=== PATIENT | male | born 1970 | race Caucasian/White ===

== ENCOUNTER → 2022-02-16 13:53 | Outpatient (CLI) | payer BC, SELFPAY ==
--- NOTE | ~2022-02-16 | MR_ITS ---
EXAMINATION: MR knee RT wo con DATE: 02/16/2022 14:35 INDICATION: Right knee pain TECHNIQUE: Magnetic resonance imaging (MRI) of the right knee was performed without intravenous contr ast. Sequences included coronal PD-weighted FSE, coronal PD-weighted FS FSE, sagittal T2-weighted FS E, sagittal PD-weighted FS FSE and axial PD weighted fat saturated FSE. COMPARISON: Right knee radiographs dated 12/18/2021 FINDINGS: Medial compartment: Medial meniscus is normal. Articular cartilage is normal. Lateral compartment: Lateral meniscus is normal. Deep chondral fissuring without degenerative subchondral changes at the m edial aspect of the lateral tibial plateau. Patellofemoral compartment: Successful and near full-thickness chondral ulceration with underlying cortical irregularity and suba rticular edema-like signal change at the medial aspect of the lateral trochlea, trochlear groove and medial trochlea. Patellar cartilage is normal. Ligaments and tendons: Anterior and posterior cruciate ligaments are normal. The medial collateral ligament and fibular marcos ateral ligament complex are normal. Patellar tendon is normal. Tiny enthesophyte at the patellar inse rtion of the normal quadriceps tendon. The visualized medial and lateral hamstring tendons as well as the iliotibial band are normal. Fluid: Physiologic amount of fluid in the joint space. No loose osteochondral bodies identified. Osseous/other: Normal marrow signal aside from the previous noted subarticular edema-like signal change at the troch marleny. No fracture or pathologic marrow replacing process. IMPRESSION: 1. High-grade trochlear chondromalacia and small region of moderate grade chondromalacia at the later al tibial plateau. Reviewed, dictated and finalized at location B. IMPRESSION: 1. High-grade trochlear chondromalacia and small region of moderate grade chond romalacia at the lateral tibial plateau.
== END ==
PROVIDERS: Visit Provider Orthopaedic Surgery
DX: M25.561 Pain in right knee (principal); S89.91XA Unspecified injury of right lower leg, initial encounter; X58.XXXA Exposure to other specified factors, initial encounter
CPT/HCPCS: 73721

== ENCOUNTER 2022-04-03 12:28 | Outpatient (CLI) | payer BC, SELFPAY ==
--- NOTE | 2022-04-03 12:43 | ECG_ITS ---
Measurements Intervals [place] Rate: 82 P: 46 IA: 171 QRS: 78 QRSD: 110 T: 15 QT: 343 QTc: 401 Interpretive Statements SINUS RHYTHM NORMAL EKG NO PREVIOUS ECG AVAILABLE FOR COMPARISON Electronically Signed On 04-03-2022 16:41:05 CDT by Salome Patel M.D.
[2022-04-03 13:21] LABS: Anion Gap 11 mmol/L (8-16); Blood Urea Nitrogen 13 mg/dL (9-20); Calcium 8.9 mg/dL (8.4-10.2); Carbon Dioxide 27 mmol/L (22-30); Chloride 96 mmol/L (98-107); Estimated Glomerular Filt Rate > 60; Glucose 110 mg/dL (65-110); Potassium 3.7 mmol/L (3.4-5.0); Sodium 134 mmol/L (137-145)
== END 2022-04-03 12:29 | disposition home or self-care (01) ==
LOC: ANHSURGERY 12:36
PROVIDERS: Anesthesiology; Visit Provider Orthopaedic Surgery
DX: Z79.899 Other long term (current) drug therapy (principal); I10 Essential (primary) hypertension; Z01.818 Encounter for other preprocedural examination
CPT/HCPCS: 36415; 80048; 93005

== ENCOUNTER 2022-04-04 01:25 | Day surgery (SDC) | payer BC, SELFPAY ==
[2022-03-28 13:07] VITALS: BMI 33.1
--- NOTE | 2022-03-28 13:19 | PC.NURSE ---
Report to the Outpatient Waiting Room, entrance under the green pavilion located off [facility], at time 11:30 on date 04/04/22. OR Time: 1:30. - You and your visitor will be asked a series of questions to screen for COVID 19 for your protection. - Only one visitor is allowed at this time. - The patient visitor is requested to leave or wait in car when not with patient. - A mask is required within the hospital. Patients may have clear liquids (water, carbonated beverages, clear teas, apple juice) until 3 hours prior to surgery (10:30) with a maximum of 20 ounces. - No food from midnight until time of surgery Take the following medications with a SIP of water the morning of surgery: ATENOLOL Medications to discontinue per physician: VITAMINS/SUPPLEMENTS Date to take last dose: 03/31/22 Please no make-up, nail persian, hairspray, perfume, deodorant, or body powder the day of surgery. No jewelry (including any body piercings) or valuables the day of surgery, leave them at home. Please take a shower or bath the night before, or the morning of, surgery with an antibacterial soap. Wear comfortable, loose fitting clothing. - Jewelry must be removed prior to entering the operating room. Rings and piercings that are not removed may be cut off. - The hospital will not accept responsibility for valuables. - Please leave all valuables, including medications, at home the day of surgery. If you are going home after surgery, a licensed hole digger truck driver must drive you home. - NO public transportation without another adult. - We recommend that an adult stay with you for 24 hours following discharge. - We also recommend that you do not drive, make important decision, drink alcoholic beverages, or take any drugs that were not prescribed by your health care provider for at least 24 hours after your discharge time. Follow any additional instructions given to you from your surgeon. If you or anyone in your household have experienced Covid symptoms in the past week, please notify your surgeon or the nurse liaison at the phone number below for possible testing. Telephone instructions given to PT - OSCAR TRINIDAD and asked if any additional questions and then verbalized understanding. Patient advised to call surgeon office or pre surgery nurse liaison [phone] if any additional questions.
--- NOTE | 2022-04-03 15:32 | P.PNAN_ITS ---
Anes - Initial Pre Proc Eval Procedure: Operation Date: 04/04/22 13:30 Proposed Procedures p Left Knee Arthroscopy, Right Knee Cortisone Injection - Jed Gtz MD Date/Time: 04/03/22 15:32 Surgeon: Jed Gtz MD Pre Op Diagnosis: left knee recurrent medial meniscus tear, Patient Data Age: 52 Gender: M Height: 1.86 m Weight: 114.76 kg Allergies Allergy/AdvReac Type Severity Reaction Status Date / Time No Known Allergies Allergy Verified 04/04/22 11:39 Home Medications Medication Instructions Recorded Confirmed Type atenolol 25 mg tablet 25 mg PO DAILY 12/18/21 04/04/22 History hydrochlorothiazide 12.5 mg tablet 12.5 mg PO DAILY 12/18/21 04/04/22 History ibuprofen 200 mg capsule (Advil 200 mg PO Q6H PRN Pain 12/18/21 04/04/22 History Liqui-Gel) lisinopril 10 mg tablet 10 mg PO DAILY 12/18/21 04/04/22 History cetirizine 10 mg tablet (Zyrtec) 10 mg PO DAILY 03/28/22 04/04/22 History cholecalciferol (vitamin D3) 125 125 mcg PO DAILY 03/28/22 04/04/22 History mcg (5,000 unit) tablet (Vitamin D3) multivitamin with minerals (Men's 1 tablet PO DAILY 03/28/22 04/04/22 History One Daily tablet) Patient hx anesthesia problems: none Family hx anesthesia problems: none Results Review: All pre-operative results and documents have been reviewed as part of the pre- operative evaluation. 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 Informed Consent: The patient's anesthetic plan and its attendant risks and benefits were discussed with the patient/family/POA. Questions were solicited and answers provided to the satisfaction of the patient/family/POA.
[2022-04-04] VITALS (8 sets, daily range): BP systolic 124–162; BP diastolic 86–108; PULSE 67–86; RESP 12–16; TEMP 36.3–36.4; O2SAT 96–100
--- NOTE | 2022-04-04 07:14 | WPDHPUPDATE1 ---
History and Physical Update Update Date/Time: 04/04/22 07:14 History and Physical has been reviewed, including an updated exam of the patient. There are NO changes in the patient's condition. Risks, benefits, and alternatives have been discussed and questions answered. Patient agrees to proceed with procedure.
[2022-04-04] MEDS: CELECOXIB 200 MG CAPSULE PO (11:44)
[2022-04-04] MEDS: ACETAMINOPHEN 500 MG TABLET 1000 MG PO (11:44)
[2022-04-04] MEDS: LACTATED RINGERS 1,000 ML 30 ML IV CONT (12:59)
[2022-04-04] MEDS: ceFAZolin 2 GM/D5W 50 ML 2 GM/50 ML BAG IVPB (14:54)
[2022-04-04] MEDS: BUPIVACAINE HCL 0.5% PF 30 ML VIAL INFILTRATE (15:27)
[2022-04-04] MEDS: methylPREDNISolone ACETATE 80 MG/ML VIAL IM (15:32)
--- NOTE | 2022-04-04 16:03 | P.OP_ITS ---
Procedure Note - Detailed Date of Procedure 04/04/22 Pre-op Diagnosis left knee recurrent medial meniscus tear ,right knee djd Post-op Diagnosis Same Procedure Performed LEFT KNEE SCOPE, RIGHT KNEE INJECTION Surgeon Jed Gtz MD Anesthesia General Description of Procedure PATIENT WAS TAKEN TO THE OR. LEFT LEG WAS PREPPED AND DRAPED STERILE. TROCARS WERE PLACED IN THE USUAL FASHION. CAMERA WAS INTRODUCED. THERE WAS CHONDROMALACIA TO THE PATELLA FEMORAL JOINT. THERE WAS A LOT OF SYNOVITIS IN ALL COMPARTMENTS. THE MEDIAL COMPARTMENT SHOWED MILD CHONDROMALACIA TO THE MEDIAL FEMORAL CONDYLE. A SHAVER WAS USED TO PREFORM A CHONDROPLASTY. THERE WAS A COMPLEX RECURRENT MEDIAL MENISCUS TEAR AT THE MAIN SUBSTANCE OF THE POSTERIOR HORN. THERE WAS ALSO A COMPLEX TEAR AT THE ROOT OF THE MEDIAL MENISCUS. THE TEARS WERE RESECTED WITH A BITER AND A SHAVER DOWN TO A SMOOTH BASE. THE ACL WAS INTACT. THE LATERAL MENISCUS WAS NOT TORN. THE LATERAL COMPARTMENT HAD MINIMAL CHONDROMALACIA. THE PATELLO FEMORAL JOINT UNDERWENT CHONDROPLASTY. THERE WAS GRADE 3 CHONDROMALACIA AND SOME AREAS OF THE TROCHLEA A ND FULL THICKNESS CARTILAGE WEAR WITH EXPOSED BONE. THERE WAS GRADE 2 CHONDROMALACIA IN PART OF THE PATELLA. SYNOVECTOMY WAS PREFORMED IN THE SUPERIOR MEDIAL COMPARTMENT. THE WOUNDS WERE APPROXIMATED WITH 4.0 NYLON. STERILE DRESSING WAS APPLIED. NEXT THE RIGHT KNEE JOINT WAS INJECTED WITH DEPO MEDROL 80 MG 1 CC AND LIDOCAINE 0.1%, 3 CCs. PATIENT WAS EXTUBATED. Estimated Blood Loss 5 Complications No immediate complications Condition Stable Disposition PACU
--- NOTE | 2022-04-04 16:09 | SUR.PHASEI ---
1607- oral airway removed
[2022-04-04] MEDS: fentaNYL CITRATE INJ (*CRX) 100 MCG/2 ML VIAL 25 MCG IV PUSH ×6 (16:15→16:40)
--- NOTE | 2022-04-04 16:37 | SUR.PHASEI ---
1637- Dr. Short notified of patient's BP readings. No new orders received. Patient instructed to take home lisinopril once discharged.
[2022-04-04] MEDS: oxyCODONE HCL (*CRX) 5 MG TAB IR PO (17:15)
== END 2022-04-04 17:50 | disposition home or self-care (01) ==
PROVIDERS: Visit Provider Orthopaedic Surgery
PROC: (CPT 29870; principal; 2022-04-04 13:30)
DX: S83.232A Complex tear of medial meniscus, current injury, left knee, initial encounter (principal); X50.0XXA Overexertion from strenuous movement or load, initial encounter; M22.42 Chondromalacia patellae, left knee; M65.862 Other synovitis and tenosynovitis, left lower leg; M17.11 Unilateral primary osteoarthritis, right knee; I10 Essential (primary) hypertension; G47.33 Obstructive sleep apnea (adult) (pediatric); Z87.891 Personal history of nicotine dependence; E66.9 Obesity, unspecified; Z68.31 Body mass index [BMI] 31.0-31.9, adult
CPT/HCPCS: 29881; 20610; 36415; 80048; 93005; A9270; J0690; J1040; J1100; J2250; J2405; J2704; J3010; J7120

== ENCOUNTER 2023-07-15 08:02 | Outpatient (CLI) | payer BC, SELFPAY ==
--- NOTE | 2023-07-15 08:11 | ECG_ITS ---
Measurements Intervals [place] Rate: 86 P: 44 DE: 166 QRS: 61 QRSD: 101 T: 31 QT: 333 QTc: 400 Interpretive Statements SINUS RHYTHM POOR R WAVE PROGRESSION, ANTERIOR LEADS BORDERLINE ST-T WAVE ABNORMALITY- INFERIOR LEADS BASELINE ARTIFACT- II, III, AVR, AVL, AVF BORDERLINE ECG COMPARED TO ECG 04/03/2022 12:54:30 ST-T WAVE ABNORMALITY NOW PRESENT Electronically Signed On 07-15-2023 8:43:10 DISTRIBUTION TECHNICIAN by Seun Langley D.O.
[2023-07-15 09:49] LABS: Anion Gap 10 mmol/L (8-16); Blood Urea Nitrogen 14 mg/dL (9-20); Calcium 8.7 mg/dL (8.4-10.2); Carbon Dioxide 26 mmol/L (22-30); Chloride 101 mmol/L (98-107); Estimated Glomerular Filt Rate > 60; Glucose 106 mg/dL (65-110); Sodium 137 mmol/L (137-145)
== END 2023-07-15 08:03 | disposition home or self-care (01) ==
LOC: ANHSURGERY 08:07
PROVIDERS: Anesthesiology; Visit Provider Orthopaedic Surgery
DX: I10 Essential (primary) hypertension (principal); Z01.818 Encounter for other preprocedural examination
CPT/HCPCS: 36415; 80048; 93005

== ENCOUNTER 2023-07-16 00:46 | Day surgery (SDC) | payer BC, SELFPAY ==
[2023-07-11 15:08] VITALS: BMI 32.5
--- NOTE | 2023-07-11 15:16 | PC.NURSE ---
Report to the Outpatient Waiting Room, entrance under the green pavilion located off [facility], at time _1000 on date _07/16/23_. Planned Procedure Time: _1200_. Time changes happen often and if your time is changed the preop area will call you the afternoon before. - You and your visitor will be asked to self-screen and do not enter if you have any COVID symptoms. - A mask is optional within the hospital at this time. Patients may have clear liquids (water, carbonated beverages, clear teas, apple juice) until 3 hours prior to surgery with a maximum of 20 ounces. - No food from midnight until time of surgery - Infants may have breast milk until 4 hours before surgery, formula 6 hours prior to surgery. - Children will be allowed to drink immediately following surgery. If applicable, please bring a bottle or sippy cup to assist with drinking. Juice, water, soda, and popsicles are readily available. For infants on formula, please bring formula the day of surgery. Pacifiers are allowed. Take the following medications with a SIP of water the morning of surgery: __ATENOLOL DO NOT STOP ANY OF YOUR OTHER PRESCRIPTION MEDICATIONS PRIOR TO SURGERY ?EXCEPT THE FOLLOWING Medications to discontinue per physician SUPPLIMENTS/ IBUPROFEN Date to take last dose____07/13/23____ Please no make-up, nail new zealander, hairspray, perfume, deodorant, or body powder the day of surgery. No jewelry (including any body piercings) or valuables the day of surgery, leave them at home. Please take a shower or bath the night before, or the morning of, surgery with an antibacterial soap. Wear comfortable, loose fitting clothing. Children are encouraged to wear pajamas. - Jewelry must be removed prior to entering the operating room. Rings and piercings that are not removed may be cut off. - The hospital will not accept responsibility for valuables. - Please leave all valuables, including medications, at home the day of surgery. If you are going home after surgery, a licensed local company flatbed truck driver must drive you home. - NO public transportation without another adult if you receive anesthesia. - We recommend that an adult stay with you for 24 hours following discharge. - We also recommend that you do not drive, make important decision, drink alcoholic beverages, or take any drugs that were not prescribed by your health care provider for at least 24 hours after your discharge time. For Pediatric surgeries, we recommend two adults accompany the child home. Follow any additional instructions given to you from your surgeon. If you or anyone in your household have experienced Covid symptoms in the past week, please notify your surgeon or the nurse liaison at the phone number below for possible testing. Telephone instructions given to PATIENT__and asked if any additional questions and then verbalized understanding. Patient advised to call surgeon office or pre surgery nurse liaison [phone] if any additional questions.
[2023-07-16] VITALS (11 sets, daily range): BP systolic 132–158; BP diastolic 83–112; PULSE 76–91; RESP 12–18; TEMP 36.8–36.9; O2SAT 97–100
--- NOTE | 2023-07-16 09:14 | WPDHPUPDATE1 ---
History and Physical Update Update Date/Time: 07/16/23 09:14 History and Physical has been reviewed, including an updated exam of the patient. There are NO changes in the patient's condition. Risks, benefits, and alternatives have been discussed and questions answered. Patient agrees to proceed with procedure.
[2023-07-16] MEDS: CELECOXIB 200 MG CAPSULE PO (10:30)
[2023-07-16] MEDS: ACETAMINOPHEN 500 MG TABLET 1000 MG PO (10:30)
[2023-07-16] MEDS: LACTATED RINGERS 1,000 ML 30 ML IV CONT ×2 (10:40→13:20)
--- NOTE | 2023-07-16 11:42 | WPDANESEPPF ---
Anes - Initial Pre Proc Eval Procedure: Operation Date: 07/16/23 12:00 Proposed Procedures p Right Knee Arthroscopy, Proceed As Indicated - Jed Gtz MD Date/Time: 07/16/23 11:42 Surgeon: eJd Gtz MD Pre Op Diagnosis: Rt Knee Patellar Chondromalachia Patient Data Age: 53 Gender: M Height: 1.85 m Weight: 113.7 kg Last Vital Signs Temp 36.9 C 07/16/23 11:08 Pulse 87 07/16/23 11:08 Resp 16 07/16/23 11:08 BP 137/92 H 07/16/23 11:08 Pulse Ox 97 07/16/23 11:08 O2 Del Method Room Air 07/16/23 11:08 Allergies Allergy/AdvReac Type Severity Reaction Status Date / Time No Known Allergies Allergy Verified 07/16/23 10:18 Home Medications Medication Instructions Recorded Confirmed Type atenolol 25 mg tablet 25 mg PO DAILY 12/18/21 07/16/23 History hydrochlorothiazide 12.5 mg tablet 12.5 mg PO DAILY 12/18/21 07/16/23 History ibuprofen 200 mg capsule (Advil 200 mg PO Q6H PRN Pain 12/18/21 07/16/23 History Liqui-Gel) lisinopril 10 mg tablet 10 mg PO DAILY 12/18/21 07/16/23 History cetirizine 10 mg tablet (Zyrtec) 10 mg PO DAILY 03/28/22 07/16/23 History multivitamin with minerals (Men's 1 tablet PO DAILY 03/28/22 07/16/23 History One Daily tablet) ergocalciferol (vitamin D2) 1,250 50,000 mcg PO WEEKLY 07/11/23 07/16/23 History mcg (50,000 unit) capsule Results Review: All pre-operative results and documents have been reviewed as part of the pre-operative evaluation. [facility] Past Medical History Medical History Hypertension CELY (obstructive sleep apnea) Surgical History Surgical History Hx of arthroscopy of left knee 1989 & 03/2021 S/P left knee arthroscopy Social History Social History Smoking packs per day: 0.25 Smoking cigarettes per day: 5.0 Years smoked: 6 Smoking pack-years: 1.50 Smoking status: Former smoker Tobacco type: cigarettes Smoking end date: 08/26/01 Alcohol intake: current Drinks per week: 5 Alcohol use details: SPECIAL OCCASIONS Substance use: never Substance use type: does not use Living arrangements: alone Occupation/Education: occupation 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 Informed Consent: The patient's anesthetic plan and its attendant risks and benefits were discussed with the patient/family/POA. Questions were solicited and answers provided to the satisfaction of the patient/family/POA.
--- NOTE | 2023-07-16 11:56 | WPDANESEPPF ---
Anes - Initial Pre Proc Eval Procedure: Operation Date: 07/16/23 12:00 Proposed Procedures p Right Knee Arthroscopy, Proceed As Indicated - Jed Gtz MD Date/Time: 07/16/23 11:56 Surgeon: Jed Gtz MD Pre Op Diagnosis: Rt Knee Patellar Chondromalachia Patient Data Age: 53 Gender: M Height: 1.85 m Weight: 113.7 kg Last Vital Signs Temp 98.4 F 07/16/23 11:08 Pulse 87 07/16/23 11:08 Resp 16 07/16/23 11:08 BP 137/92 H 07/16/23 11:08 Pulse Ox 97 07/16/23 11:08 O2 Del Method Room Air 07/16/23 11:08 Allergies Allergy/AdvReac Type Severity Reaction Status Date / Time No Known Allergies Allergy Verified 07/16/23 10:18 Home Medications Medication Instructions Recorded Confirmed Type atenolol 25 mg tablet 25 mg PO DAILY 12/18/21 07/16/23 History hydrochlorothiazide 12.5 mg tablet 12.5 mg PO DAILY 12/18/21 07/16/23 History ibuprofen 200 mg capsule (Advil 200 mg PO Q6H PRN Pain 12/18/21 07/16/23 History Liqui-Gel) lisinopril 10 mg tablet 10 mg PO DAILY 12/18/21 07/16/23 History cetirizine 10 mg tablet (Zyrtec) 10 mg PO DAILY 03/28/22 07/16/23 History multivitamin with minerals (Men's 1 tablet PO DAILY 03/28/22 07/16/23 History One Daily tablet) ergocalciferol (vitamin D2) 1,250 50,000 mcg PO WEEKLY 07/11/23 07/16/23 History mcg (50,000 unit) capsule Patient hx anesthesia problems: none Family hx anesthesia problems: none Results Review: All pre-operative results and documents have been reviewed as part of the pre-operative evaluation. [facility] Past Medical History Medical History Hypertension CELY (obstructive sleep apnea) Surgical History Surgical History Hx of arthroscopy of left knee 1989 & 03/2021 S/P left knee arthroscopy Social History Social History Smoking packs per day: 0.25 Smoking cigarettes per day: 5.0 Years smoked: 6 Smoking pack-years: 1.50 Smoking status: Former smoker Tobacco type: cigarettes Smoking end date: 08/26/01 Alcohol intake: current Drinks per week: 5 Alcohol use details: SPECIAL OCCASIONS Substance use: never Substance use type: does not use Living arrangements: alone Occupation/Education: occupation 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 Informed Consent: The patient's anesthetic plan and its attendant risks and benefits were discussed with the patient/family/POA. Questions were solicited and answers provided to the satisfaction of the patient/family/POA.
[2023-07-16] MEDS: ceFAZolin 2 GM/D5W 50 ML 2 GM/50 ML BAG IVPB (12:07)
[2023-07-16] MEDS: BUPivacaine HCL 0.5% 10 ML AMP 30 ML INFILTRATE (12:43)
--- NOTE | 2023-07-16 13:19 | W.PM.PROC2 ---
Procedure Note - Detailed Date of Procedure 07/16/23 Pre-op Diagnosis Rt Knee Patellar Chondromalaciia, medial meniscus tear Post-op Diagnosis Same Procedure Performed RIGHT KNEE SCOPE Surgeon Jed Gtz MD Anesthesia General Description of Procedure PATIENT WAS TAKEN TO THE OR. RIGHT LEG WAS PREPPED AND DRAPED STERILE. TROCARS WERE PLACED IN THE USUAL FASHION. CAMERA WAS INTRODUCED. THERE WAS CHONDROMALACIA TO THE PATELLA FEMORAL JOINT. THERE WAS A LOT OF SYNOVITIS IN ALL COMPARTMENTS. THERE WAS A COMPLEX MEDIAL MENISCUS TEAR. THE TEAR WAS RESECTED WITH A BITER AND A SHAVER DOWN TO A SMOOTH BASE. THERE WAS MILD CHONDROMALACIA TO THE MEDIAL FEMORAL CONDYLE AND CHONDROPLASTY WAS PREFORMED. THE ACL WAS INTACT. THE LATERAL MENISCUS WAS NOT TORN. THE LATERAL COMPARTMENT HAD NO CHONDROMALACIA. A SYNOVECTOMY WAS PREFORMED. THE PATELLO FEMORAL JOINT UNDERWENT CHONDROPLASTY. THERE WAS GRADE 3 AND 4 CHONDROMALACIA IN MOST OF THE TROCHLEA AND PART OF THE PATELLA. SYNOVECTOMY WAS PREFORMED IN THE SUPERIOR MEDIAL COMPARTMENT. THE WOUNDS WERE APPROXIMATED WITH 4.0 NYLON. STERILE DRESSING WAS APPLIED. PATIENT WAS EXTUBATED. Estimated Blood Loss 5 Complications No immediate complications Condition Stable Disposition PACU
[2023-07-16] MEDS: fentaNYL CITRATE INJ (*CRX) 100 MCG/2 ML VIAL 25 MCG IV PUSH ×8 (13:28→14:07)
[2023-07-16] MEDS: hydrALAZINE HCL 20 MG/ML VIAL 5 MG IV PUSH ×2 (13:55→14:06)
[2023-07-16] MEDS: oxyCODONE HCL (*CRX) 5 MG TAB IR PO (14:37)
== END 2023-07-16 16:00 | disposition home or self-care (01) ==
PROVIDERS: Visit Provider Orthopaedic Surgery
PROC: (CPT 29870; principal; 2023-07-16 12:00)
DX: M22.41 Chondromalacia patellae, right knee (principal); S83.231A Complex tear of medial meniscus, current injury, right knee, initial encounter; I10 Essential (primary) hypertension; Z87.891 Personal history of nicotine dependence; M65.9 Synovitis and tenosynovitis, unspecified
CPT/HCPCS: 29876; 36415; 80048; 93005; A9270; J0360; J0690; J1100; J2250; J2405; J2704; J3010; J7120

== ENCOUNTER → 2023-10-14 15:45 | Outpatient (CLI) | payer BC, SELFPAY ==
--- NOTE | ~2023-10-14 | MR_ITS ---
EXAMINATION: MR knee RT wo con DATE: 10/14/2023 16:18 INDICATION: S89.91XA - Unspecified injury of right lower leg, initial... TECHNIQUE: Magnetic resonance imaging (MRI) of the right knee was performed without intravenous contr ast. Sequences included axial PD-weighted FS FSE, coronal PD-weighted FSE and PD-weighted FS FSE, sag ittal PD-weighted FSE, and sagittal T2-weighted FS FSE. COMPARISON: 02/16/2022. FINDINGS: Medial compartment: Oblique undersurface tear of the body of the medial meniscus with extension to a small vertically clarisse ented tear at the junction of the posterior horn and body. Blunting of the posterior horn. Moderate d iffuse cartilage thinning. Mild osteophytosis. Lateral compartment: Meniscus intact. Mild diffuse cartilage thinning. Chondral fissure along the medial aspect of the lat eral tibial plateau. Mild osteophytosis. Patellofemoral compartment: Mild osteophytosis. Full-thickness cartilage loss along the inferior aspect of the femoral groove, wi th subchondral cyst formation. Retinacula intact. Ligaments and tendons: The ACL, PCL, MCL, and LCL are intact. Remaining flexor and extensor tendons are intact. Quadriceps e nthesopathy. Fluid: Small volume joint fluid. Osseous/other: No suspicious focal or diffuse marrow signal. IMPRESSION: Complex tear of the posterior horn and body, medial meniscus. Moderate chondromalacia patella. Small volume joint effusion. Reviewed, dictated and finalized at location K. TRO MECHANICAL DESIGNER
== END ==
PROVIDERS: PCP Orthopaedic Surgery; Visit Provider Orthopaedic Surgery
DX: S83.231A Complex tear of medial meniscus, current injury, right knee, initial encounter (principal); M22.41 Chondromalacia patellae, right knee; M25.461 Effusion, right knee; X58.XXXA Exposure to other specified factors, initial encounter
CPT/HCPCS: 73721

== ENCOUNTER 2024-02-26 08:31 | Emergency (ER) | payer BC, SELFPAY ==
[2024-02-26] VITALS (26 sets, daily range): BP systolic 132–161; BP diastolic 84–110; PULSE 76–84; RESP 9–22; TEMP 36.8; O2SAT 94–100
--- NOTE | ~2024-02-26 | XR_ITS ---
EXAMINATION: XR chest 2V DATE: 02/26/2024 09:05 INDICATION: Shortness of breath. Controlled hypertension. TECHNIQUE: PA and lateral views of the chest were obtained. COMPARISON: Chest radiograph dated 08/01/09 FINDINGS: The lungs are clear with no focal airspace opacities, pulmonary edema, pleural effusion or pneumothor ax. The cardiomediastinal silhouette is normal. Mild thoracic spondylosis. IMPRESSION: 1. No acute cardiopulmonary disease. Reviewed, dictated and finalized at location B.
--- NOTE | ~2024-02-26 | CT_ITS ---
EXAMINATION: CT brain wo con DATE: 02/26/2024 09:49 INDICATION: Headache TECHNIQUE: Computed tomography (CT) of the head was performed without intravenous contrast. Sagittal and coronal reconstructions were performed. The mA was adjusted according to patient size. Iterative reconstruction technique was employed. The dose-length product was 681.00 mGy-cm. COMPARISON: head CT dated 05/03/2014 FINDINGS: No acute intracranial hemorrhage, acute infarction or abnormal extra axial fluid collection. Ventricl es are normal and symmetric. No mass/mass effect. The orbits, paranasal sinuses and mastoid air cells are normal. IMPRESSION: 1. Normal head CT. Reviewed, dictated and finalized at location B. IMPRESSION: 1. Normal head CT.
--- NOTE | 2024-02-26 08:38 | ECG_ITS ---
Test Date: 2024-02-26 08:42:25 Measurements Intervals [place] Rate: 80 P: 36 CT: 167 QRS: 56 QRSD: 112 T: 28 QT: 333 QTc: 385 Interpretive Statements SINUS RHYTHM INTRAVENTRICULAR CONDUCTION DELAY BORDERLINE R WAVE PROGRESSION, ANTERIOR LEADS BORDERLINE ECG No previous ECG available for comparison Electronically Signed On 02-26-2024 10:36:50 CDT by Seun Langley D.O.
[2024-02-26 08:53] LABS: Basophils Percent Auto 0.6 % (0.2-1.2); Eosinophils Absolute Auto 0.2 K/mm3 (0-0.3); Eosinophils Percent Auto 2.3 % (0-4.4); Hematocrit 51.3 % (42.0-52.0); Hemoglobin 18.4 g/dL (14.0-18.0); Immature Granulocyte Absolute 0.02 K/mm3 (0.00-0.031); Immature Granulocyte Percent A 0.3 % (0-0.5); Lymphocytes Absolute Auto 2.61 K/mm3 (0.9-3.2); Lymphocytes Percent Auto 38.3 % (18.3-44.2); Mean Corpuscular HGB Conc 35.9 g/dl (32-36); Mean Corpuscular Hemoglobin 29.7 pg (26-34); Mean Corpuscular Volume 82.9 fl (80-100); Monocytes Absolute Auto 0.8 K/mm3 (0.1-0.6); Monocytes Percent Auto 11.3 % (2.6-8.5); Neutrophils Absolute Auto 3.2 K/mm3 (1.3-6.7); Neutrophils Percent Auto 47.2 % (45.5-73.1); Platelet Count Result 254 k/mm3 (150-375); Red Blood Count 6.19 M/mm3 (4.6-6.20); White Blood Count 6.8 K/mm3 (4.5-10.0)
[2024-02-26 09:05] LABS: Alanine Aminotransferase 29 U/L (6-50); Alkaline Phosphatase 36 U/L (38-126); Anion Gap 10 mmol/L (4-12); Aspartate Amino Transferase 24 U/L (17-59); Bilirubin,Total 0.9 mg/dL (0.2-1.3); Blood Urea Nitrogen 12 mg/dL (9-20); Calcium 9.2 mg/dL (8.4-10.2); Carbon Dioxide 27 mmol/L (22-30); Chloride 100 mmol/L (98-107); Estimated CRCL calculation 101 ml/min; Estimated Glomerular Filt Rate > 60; Glucose 119 mg/dL (65-110); Potassium 3.8 mmol/L (3.4-5.0); Sodium 137 mmol/L (137-145)
--- NOTE | 2024-02-26 09:35 | ED.GENADULT ---
HPI - General Adult General Chief complaint: Recheck/Abnormal Lab/Rx Stated complaint: HTN Time Seen by Provider: 02/26/24 09:00 History of Present Illness HPI narrative: Bubba Overton is a 53 y/o male who presents today due to having elevated b/p. He states that he has a hx of HTN and takes Lisinopril and Hydrochlorothiazide. He states that he has had a headache since about February 18 and last night he thought it might be his b/p and he checked it and it was high, he then took his b/p this AM and it was still high he called his PCP and they told him to go to the ED. He states he has had some mild chest tightness off and on - he thought it was related to exercising and it is reproducible with palpation but he continues to have this chest tightness feeling Related Data Home Medications Medication Instructions Recorded Confirmed atenolol 25 mg tablet 25 mg PO DAILY 12/18/21 10/21/23 hydrochlorothiazide 12.5 mg tablet 12.5 mg PO DAILY 12/18/21 10/21/23 ibuprofen 200 mg capsule (Advil 200 mg PO Q6H PRN Pain 12/18/21 10/21/23 Liqui-Gel) lisinopril 10 mg tablet 10 mg PO DAILY 12/18/21 10/21/23 cetirizine 10 mg tablet (Zyrtec) 10 mg PO DAILY 03/28/22 10/21/23 multivitamin with minerals (Men's 1 tablet PO DAILY 03/28/22 10/21/23 One Daily tablet) ergocalciferol (vitamin D2) 1,250 50,000 mcg PO WEEKLY 07/11/23 10/21/23 mcg (50,000 unit) capsule Allergies Allergy/AdvReac Type Severity Reaction Status Date / Time No Known Allergies Allergy Verified 02/26/24 08:37 Review of Systems Review of Systems: CONSTITUTIONAL: Denies fever, chills, or sweats. EYES: Denies visual changes, redness, or discharge. ENT: Denies rhinorrhea, congestion, sore throat, or otalgia. CARDIOVASCULAR: Reports some chest tightness off and on since yesterday and some today chest pain, no palpitations, or edema. RESPIRATORY: Denies cough reports maybe a little short of breath GASTROINTESTINAL: Denies abdominal pain, nausea, vomiting, or diarrhea. GENITOURINARY: Denies dysuria or hematuria. SKIN: Denies rash or itching. MUSCULOSKELETAL: Denies back pain, joint pain, or myalgia. NEUROLOGIC: Reports headache for about 1 week reports baseline numbness due to a spinal cord injury nothing new PSYCHIATRIC: Denies anxiety or depression. [facility] Past Medical History Medical History Hypertension CELY (obstructive sleep apnea) Surgical History Surgical History Hx of arthroscopy of left knee 1989 & 03/2021 S/P left knee arthroscopy Social History Social History Smoking packs per day: 0.25 Smoking cigarettes per day: 5.0 Years smoked: 6 Smoking pack-years: 1.50 Smoking status: Former smoker Tobacco type: cigarettes Smoking end date: 08/26/01 Alcohol intake: current Drinks per week: 5 Alcohol use details: SPECIAL OCCASIONS Substance use: never Substance use type: does not use Living arrangements: alone Occupation/Education: occupation 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 HEAD: Normocephalic, atraumatic. EYES: PERRLA and EOMI. No nystagmus noted ENT: Nares clear, no rhinorrhea or epistaxis. Mucous membranes moist. Oropharynx without tonsillar hypertrophy exudate or other lesions. Bilateral TMs pearly mendoza non bulging NECK: Supple. No adenopathy or masses. No carotid bruits or JVD CHEST: Clear to auscultation. No respiratory distress. No wheezes rales or rhonchi HEART: Regular rate and rhythm. No murmur heard. Normal peripheral pulses. ABDOMEN: Soft, nontender, nondistended, normal active bowel sounds. EXTREMITIES: Normal range of motion. No edema. SKIN: Warm, dry, no rash. N
[2024-02-26 10:03] LABS: Troponin I < 0.012 ng/mL (0.000-0.034)
[2024-02-26] MEDS: ACETAMINOPHEN 500 MG TABLET 1000 MG PO (10:04)
[2024-02-26] MEDS: ASPIRIN 81 MG CHEWABLE TABLET 324 MG PO (10:04)
[2024-02-26] MEDS: KETOROLAC 30 MG/ML VIAL (*BKC) IV PUSH (10:04)
--- NOTE | 2024-02-26 12:16 | ECG_ITS ---
Test Date: 2024-02-26 12:34:31 Measurements Intervals [place] Rate: 72 P: 12 TN: 172 QRS: 65 QRSD: 102 T: 32 QT: 346 QTc: 380 Interpretive Statements SINUS RHYTHM CANNOT R/O SEPTAL INFARCT, AGE INDETERMINATE BASELINE WANDER- II, III, AVR, AVL, AVF, V2 ABNORMAL ECG Compared to ECG 02/26/2024 08:42:25 NO SIGNIFICANT CHANGE Electronically Signed On 02-26-2024 15:02:16 CDT by Seun Langley D.O.
[2024-02-26 12:54] LABS: Troponin I < 0.012 ng/mL (0.000-0.034)
== END 2024-02-26 13:47 | disposition home or self-care (01) ==
PROVIDERS: Emergency Medicine; Emergency Provider Nurse Practitioner Family
DX: R07.89 Other chest pain (principal); R51.9 Headache, unspecified; I10 Essential (primary) hypertension; G47.33 Obstructive sleep apnea (adult) (pediatric); Z87.891 Personal history of nicotine dependence
CPT/HCPCS: 36415; 70450; 71046; 80053; 84484; 85025; 93005; 96374; 99284; A9270; J1885

== ENCOUNTER 2024-02-28 19:44 | Emergency (ER) | payer BC, SELFPAY ==
[2024-02-28 20:02] VITALS: BP 175/108; PULSE 97; RESP 20; TEMP 36.6; O2SAT 98
--- NOTE | 2024-02-28 20:07 | ECG_ITS ---
Test Date: 2024-02-28 20:10:41 Measurements Intervals [place] Rate: 91 P: 37 VA: 178 QRS: 73 QRSD: 107 T: -10 QT: 325 QTc: 400 Interpretive Statements SINUS RHYTHM DELAYED PRECORDIAL R/S TRANSITION NONSPECIFIC ST-T WAVE ABNORMALITY- INFERIOR LEADS BASELINE ARTIFACT- V6 BORDERLINE ECG Compared to ECG 02/26/2024 12:34:31 ST-T WAVE ABNORMALITY NOW PRESENT Electronically Signed On 02-28-2024 20:48:22 CDT by Seun Langley D.O.
[2024-02-28 20:21] LABS: Basophils Absolute Auto 0.1 K/mm3 (0.0-0.1); Basophils Percent Auto 0.7 % (0.2-1.2); Eosinophils Absolute Auto 0.1 K/mm3 (0-0.3); Eosinophils Percent Auto 1.3 % (0-4.4); Hematocrit 53.1 % (42.0-52.0); Hemoglobin 18.8 g/dL (14.0-18.0); Immature Granulocyte Absolute 0.01 K/mm3 (0.00-0.031); Immature Granulocyte Percent A 0.1 % (0-0.5); Lymphocytes Absolute Auto 2.27 K/mm3 (0.9-3.2); Lymphocytes Percent Auto 30.4 % (18.3-44.2); Mean Corpuscular HGB Conc 35.4 g/dl (32-36); Mean Corpuscular Hemoglobin 29.6 pg (26-34); Mean Corpuscular Volume 83.6 fl (80-100); Mean Platelet Volume 9.8 fl (7.4-10.4); Monocytes Absolute Auto 0.8 K/mm3 (0.1-0.6); Monocytes Percent Auto 10.3 % (2.6-8.5); Neutrophils Absolute Auto 4.3 K/mm3 (1.3-6.7); Neutrophils Percent Auto 57.2 % (45.5-73.1); Platelet Count Result 262 k/mm3 (150-375); Red Blood Count 6.35 M/mm3 (4.6-6.20); Red Cell Distribution Width 12.7 % (11.5-14.5); White Blood Count 7.5 K/mm3 (4.5-10.0)
[2024-02-28 20:32] LABS: Alanine Aminotransferase 31 U/L (6-50); Albumin Level 5.1 g/dL (3.5-5.1); Alkaline Phosphatase 34 U/L (38-126); Anion Gap 8 mmol/L (4-12); Aspartate Amino Transferase 27 U/L (17-59); Bilirubin,Total 0.8 mg/dL (0.2-1.3); Blood Urea Nitrogen 16 mg/dL (9-20); Calcium 8.9 mg/dL (8.4-10.2); Carbon Dioxide 33 mmol/L (22-30); Chloride 96 mmol/L (98-107); Estimated CRCL calculation 85 ml/min; Estimated Glomerular Filt Rate > 60; Glucose 125 mg/dL (65-110); Lipase 81 U/L (23-300); Potassium 3.7 mmol/L (3.4-5.0); Sodium 137 mmol/L (137-145)
[2024-02-28 20:33] LABS: Prothrombin Time 13.5 Seconds (11.1-14.7)
[2024-02-28 20:34] LABS: Partial Thromboplastin Time 31.7 Seconds (22.3-36.8)
[2024-02-28 20:43] LABS: Troponin I < 0.012 ng/mL (0.000-0.034)
[2024-02-28 20:58] VITALS: BP 141/113; PULSE 97; RESP 15; O2SAT 96
[2024-02-28 21:02] VITALS: RESP 18
[2024-02-28 21:40] LABS: Appearance Urine Clear (Clear); Bilirubin Urine Negative (Negative); Blood Urine Negative (Negative); Color Urine Yellow (Yellow); Glucose Urine UA Negative (Negative); Ketones Urine Negative (Negative); Leukocyte Esterase Ur Negative LEU/UL (Negative); Nitrate Urine Negative (Negative); Protein Urine Negative (Negative); Urobilinogen Urine 0.2 mg/dL (<2.0); pH Urine 6.5 (5.0-9.0)
[2024-02-28 21:44] LABS: Add Urine Microscopic? NO
--- NOTE | 2024-02-28 22:13 | ED.GENADULT ---
HPI - General Adult General Chief complaint: Unspecified Stated complaint: high blood pressure Time Seen by Provider: 02/28/24 20:59 History of Present Illness HPI narrative: Patient is a 53-year-old male who presents to the emergency department this evening with multiple complaints. Patient states that he was seen at our facility a few days ago for similar symptoms and at that time he was also having headaches which he is still having intermittently and a CT of his was also noted to be normal. Patient has been monitoring his blood pressure at and states that it will increase to as high as 170s which is abnormal for him. Patient states that while he is currently on 2 blood pressure medications his blood pressure has been maintained at 120 systolic and it is very abnormal for him for it to be this high. Patient also states that he has been having some musculoskeletal back pain/kidney pain which is and he is unsure if that is causing his blood pressure to increase. Denies any urinary symptoms including dysuria or hematuria but states that he has been urinating a lot. Patient states that when he called his family doctor they did recommend that he follows up with him in office but states that he was feeling unwell a few days ago when he decided to come here instead of going to his doctor's office. Patient currently denies any chest pain or shortness of breath. No fevers or chills. No additional symptoms or concerns at this time. Related Data Home Medications Medication Instructions Recorded Confirmed atenolol 25 mg tablet 25 mg PO DAILY 12/18/21 10/21/23 hydrochlorothiazide 12.5 mg tablet 12.5 mg PO DAILY 12/18/21 10/21/23 ibuprofen 200 mg capsule (Advil 200 mg PO Q6H PRN Pain 12/18/21 10/21/23 Liqui-Gel) lisinopril 10 mg tablet 10 mg PO DAILY 12/18/21 10/21/23 cetirizine 10 mg tablet (Zyrtec) 10 mg PO DAILY 03/28/22 10/21/23 multivitamin with minerals (Men's 1 tablet PO DAILY 03/28/22 10/21/23 One Daily tablet) ergocalciferol (vitamin D2) 1,250 50,000 mcg PO WEEKLY 07/11/23 10/21/23 mcg (50,000 unit) capsule Allergies Allergy/AdvReac Type Severity Reaction Status Date / Time No Known Allergies Allergy Verified 02/28/24 19:45 Review of Systems Review of Systems: All systems are reviewed and are negative unless stated otherwise in the HPI. [facility] Past Medical History Medical History Hypertension CELY (obstructive sleep apnea) Surgical History Surgical History Hx of arthroscopy of left knee 1989 & 03/2021 S/P left knee arthroscopy Social History Social History Smoking packs per day: 0.25 Smoking cigarettes per day: 5.0 Years smoked: 6 Smoking pack-years: 1.50 Smoking status: Former smoker Tobacco type: cigarettes Smoking end date: 08/26/01 Alcohol intake: current Drinks per week: 5 Alcohol use details: SPECIAL OCCASIONS Substance use: never Substance use type: does not use Living arrangements: alone Occupation/Education: occupation 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 HEENT: PERRL, no rhinorrhea, no post nasal drip, oropharynx clear. Cardiovascular: Regular rate and rhythm, no murmurs, rubs or gallops, no peripheral edema. Respiratory: Clear to auscultation bilaterally, no tachypnea, no wheezing, no rhonchi, no rubs, no respiratory distress. Abdomen: Soft, nontender, nondistended, no rebound, no guarding, no peritoneal signs. Musculoskeletal: No joint swelling or deformity, normal muscle tone. Skin: No rashes or petechia, no signs of infection. Neurological: Alert and oriented to person, place, and time. Follows all commands. No focal
== END 2024-02-28 22:28 | disposition home or self-care (01) ==
PROVIDERS: Student in an Organized Health Care Education/Training Program; Emergency Provider Emergency Medicine
DX: I10 Essential (primary) hypertension (principal); G47.33 Obstructive sleep apnea (adult) (pediatric); Z87.891 Personal history of nicotine dependence; Z79.899 Other long term (current) drug therapy
CPT/HCPCS: 36415; 80053; 81003; 83690; 84484; 85025; 85610; 85730; 93005; 99284

== ENCOUNTER 2024-04-24 00:40 | Day surgery (SDC) | payer BC, SELFPAY ==
--- NOTE | 2024-04-22 09:57 | PC.NURSE ---
Report to the Outpatient Waiting Room, entrance under the green pavilion located off [facility], at time _0600 on date _[id number] . Planned Procedure Time: __0730 .? Time changes happen often and if your time is changed the preop area will call you the afternoon before. - You and your visitor will be asked to self-screen and do not enter if you have any COVID symptoms. Please call surgeon if you need to reschedule. - A mask is optional within the hospital at this time. Patients may have clear liquids (water, carbonated beverages, clear teas, apple juice) until 3 hours prior to surgery with a maximum of 20 ounces. STOP AT 0430 - No food from midnight until time of surgery and no smoking Take only the following medications with a SIP of water on the morning of surgery: Zrytec, DO NOT STOP ANY OF YOUR OTHER PRESCRIPTION MEDICATIONS PRIOR TO SURGERY EXCEPT THE FOLLOWING: Stop your vitamins/supplements now. Do not take your HCTZ, lisinopril or lipitor the morning of surgery. Medications to discontinue per physician FOLLOW YOUR DOCTORS ORDERS ON PRN IBUPROFEN USE. Please no make-up, nail kyrgyz, hairspray, perfume, deodorant, or body powder the day of surgery.? No jewelry (including any body piercings) or valuables the day of surgery, leave them at home.? Please take a shower or bath the night before, or the morning of, surgery with an antibacterial soap.? Wear comfortable, loose fitting clothing.? - Jewelry must be removed prior to entering the operating room.? Rings and piercings that are not removed may be cut off. - The hospital will not accept responsibility for valuables.? - Please leave all valuables, including medications, at home the day of surgery. If you are going home after surgery, a licensed yard driver must drive you home.? - NO public transportation without another adult if you receive anesthesia. - We recommend that an adult stay with you for 24 hours following discharge. - We also recommend that you do not drive, make important decision, drink alcoholic beverages, or take any drugs that were not prescribed by your health care provider for at least 24 hours after your discharge time. Follow any additional instructions given to you from your surgeon. Telephone instructions given to Bubba (patient) and asked if any additional questions and then verbalized understanding. Patient advised to call surgeon office or pre surgery nurse liaison [phone] if any additional questions. CRUTCH TRAINING HAS ALREADY BEEN DONE AND PATIENT IS CURRENTLY ON CRUTCHES.
[2024-04-22 10:04] VITALS: BMI 32.7
[2024-04-24] VITALS (9 sets, daily range): BP systolic 121–141; BP diastolic 75–95; PULSE 64–82; RESP 12–20; TEMP 36.2–36.6; O2SAT 97–100
[2024-04-24] MEDS: ACETAMINOPHEN 500 MG TABLET 1000 MG PO (06:35)
[2024-04-24] MEDS: CELECOXIB 200 MG CAPSULE PO (06:35)
[2024-04-24] MEDS: LACTATED RINGERS 1,000 ML 30 ML IV CONT ×2 (06:50→09:02)
--- NOTE | 2024-04-24 06:58 | WPDANESEPPF ---
Anes - Initial Pre Proc Eval Procedure: Operation Date: 04/24/24 07:30 Proposed Procedures p Right Knee Arthroscopy, Proceed As Indicated - Jed Gtz MD Date/Time: 04/24/24 06:58 Surgeon: Jed Gtz MD Pre Op Diagnosis: right knee medial meniscus tear Patient Data Age: 54 Gender: M Height: 1.85 m Weight: 112.6 kg Last Vital Signs Temp 36.6 C 04/24/24 06:29 Pulse 82 04/24/24 06:29 Resp 20 04/24/24 06:29 BP 122/81 04/24/24 06:29 Pulse Ox 97 04/24/24 06:29 O2 Del Method Room Air 04/24/24 06:29 Allergies Allergy/AdvReac Type Severity Reaction Status Date / Time No Known Allergies Allergy Verified 04/24/24 06:23 Home Medications Medication Instructions Recorded Confirmed Type hydrochlorothiazide 12.5 mg tablet 12.5 mg PO DAILY 12/18/21 04/24/24 History ibuprofen 200 mg capsule (Advil 200 mg PO Q6H PRN Pain 12/18/21 04/22/24 History Liqui-Gel) lisinopril 10 mg tablet 10 mg PO DAILY 12/18/21 04/24/24 History cetirizine 10 mg tablet (Zyrtec) 10 mg PO DAILY 03/28/22 04/24/24 History multivitamin with minerals (Men's 1 tablet PO DAILY 03/28/22 04/24/24 History One Daily tablet) ergocalciferol (vitamin D2) 1,250 50,000 mcg PO WEEKLY 07/11/23 04/24/24 History mcg (50,000 unit) capsule chlorhexidine gluconate 4 % 1 applic topical DAILY #237 mL 04/17/24 04/22/24 Rx topical liquid (Hibiclens) hydrocodone 5 mg-acetaminophen 325 1 tablet PO Q12H PRN pain #20 tabs 04/24/24 Rx mg tablet Patient hx anesthesia problems: none Family hx anesthesia problems: none Results Review: All pre-operative results and documents have been reviewed as part of the pre-operative evaluation. [facility] Past Medical History Medical History (Updated 04/24/24 @ 06:59 by Ravinder Short DO) Chondromalacia patellae of right knee Herniated disc, cervical C3-7 Hypertension Medial meniscus, posterior horn derangement CELY (obstructive sleep apnea) Pain of right knee after injury Right knee injury Surgical History Surgical History Hx of arthroscopy of left knee 1989 & 03/2021 S/P left knee arthroscopy S/P right knee arthroscopy DOS 07/16/23 Social History Social History Smoking packs per day: 0.25 Smoking cigarettes per day: 5.0 Years smoked: 6 Smoking pack-years: 1.50 Smoking status: Former smoker Tobacco type: cigarettes Second hand tobacco smoke exposure: Yes Smoking end date: 08/26/01 Alcohol intake: current Drinks per week: 1 Alcohol use details: SPECIAL OCCASIONS Substance use: never Substance use type: does not use Last use: 2005 Living arrangements: alone Occupation/Education: occupation 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 Informed Consent: The patient's anesthetic plan and its attendant risks and benefits were discussed with the patient/family/POA. Questions were solicited and answers provided to the satisfaction of the patient/family/POA.
--- NOTE | 2024-04-24 07:18 | WPDHPUPDATE1 ---
History and Physical Update Update Date/Time: 04/24/24 07:18 History and Physical has been reviewed, including an updated exam of the patient. There are NO changes in the patient's condition. Risks, benefits, and alternatives have been discussed and questions answered. Patient agrees to proceed with procedure. proceed as indicated.
[2024-04-24] MEDS: BUPivacaine HCL 0.5% 10 ML AMP 30 ML INFILTRATE (07:30)
[2024-04-24] MEDS: ceFAZolin 2 GM/D5W 50 ML 2 GM/50 ML BAG IVPB (07:30)
[2024-04-24] MEDS: methylPREDNISolone ACETATE 80 MG/ML VIAL IM (08:43)
--- NOTE | 2024-04-24 09:22 | W.PM.PROC2 ---
Procedure Note - Detailed Date of Procedure 04/24/24 Pre-op Diagnosis right knee recurrent medial meniscus tear Post-op Diagnosis Same Procedure Performed RIGHT KNEE SCOPE Surgeon Jed Gtz MD Anesthesia General Findings RECURRENT MEDIAL MENISCUS TEAR Description of Procedure THE PATIENT WAS TAKEN TO THE OPERATING ROOM IN STABLE CONDITION. HIS RIGHT KNEE REGION WAS PREPPED AND DRAPED STERILE. TROCARS WERE PLACED IN THE USUAL FASHION THROUGH THE PREVIOUS TROCAR SCARS. THE ARTHROSCOPIC CAMERA WAS INTRODUCED. THE PATELLO FEMORAL COMPARTMENT WAS ENTERED. THERE WAS CHONDROMALACIA TO THE PATELLA FEMORAL JOINT. THE PATELLA HAD MINIMAL CHONDROMALACIA. THE TROCHLEA HAD A FULL THICKNESS DEFECT AND THERE WERE ARTHRITIC CHANGES AT THE DISTAL TROCHLEA ANTERIOR TO THE NOTCH. THERE WAS A LOT OF SYNOVITIS IN ALL COMPARTMENTS. THE MEDIAL COMPARTMENT WAS ENTERED. THERE WAS A RECURRENT COMPLEX MEDIAL MENISCUS TEAR. THE TEAR WAS LOCATED AT THE SITE OF THE PREVIOUS TEAR ALONG THE MAIN BODY OF THE POSTERIOR HORN. THERE WAS NO TEAR TO THE MENISCAL ROOT. THE TEAR WAS RESECTED WITH A BITER AND A SHAVER DOWN TO A SMOOTH BASE. THERE WAS MILD CHONDROMALACIA TO THE MEDIAL FEMORAL CONDYLE AND CHONDROPLASTY WAS PREFORMED. THE ACL WAS INTACT. A DRAWER TEST WAS PREFORMED WITH DIRECT VISUALIZATION SHOWING A FUNCTIONAL ACL. THE LATERAL COMPARTMENT WAS ENTERED. THE LATERAL MENISCUS WAS NOT TORN. THE LATERAL COMPARTMENT HAD MINIMAL CHONDROMALACIA AT THE PLATEAU. A SYNOVECTOMY WAS PREFORMED. THE PATELLO FEMORAL JOINT UNDERWENT CHONDROPLASTY. THERE WAS GRADE 4 CHONDROMALACIA AND EARLY DEGENERATIVE CHANGES SEEN AGAIN IN THE TROCHLEA. SYNOVECTOMY WAS PREFORMED IN THE SUPERIOR MEDIAL COMPARTMENT. THE WOUNDS WERE REPAIRED WITH 4.0 NYLON. STERILE DRESSING WAS APPLIED. PATIENT WAS EXTUBATED AND SENT TO THE RECOVERY ROOM IN STABLE CONDITION. Estimated Blood Loss 5 Complications No immediate complications Condition Stable Disposition PACU
[2024-04-24] MEDS: fentaNYL CITRATE INJ (*CRX) 100 MCG/2 ML VIAL 25 MCG IV PUSH ×4 (09:35→09:49)
[2024-04-24] MEDS: oxyCODONE HCL (*CRX) 5 MG TAB IR PO (10:09)
== END 2024-04-24 10:45 | disposition home or self-care (01) ==
PROVIDERS: Visit Provider Orthopaedic Surgery
PROC: (CPT 29870; principal; 2024-04-24 07:30)
DX: S83.231A Complex tear of medial meniscus, current injury, right knee, initial encounter (principal); M65.861 Other synovitis and tenosynovitis, right lower leg; M94.261 Chondromalacia, right knee; X50.0XXA Overexertion from strenuous movement or load, initial encounter; G47.33 Obstructive sleep apnea (adult) (pediatric); I10 Essential (primary) hypertension; Z87.891 Personal history of nicotine dependence; E66.9 Obesity, unspecified; Z68.32 Body mass index [BMI] 32.0-32.9, adult
CPT/HCPCS: 29881; 29876; A9270; J0690; J1010; J1100; J1170; J2250; J2371; J2405; J2704; J3010; J7120

== ENCOUNTER 2024-09-24 20:56 | Emergency (ER) | payer BC, SELFPAY ==
--- OUTSIDE RECORDS SUMMARY | 2024-09-24 20:59 | XMS_ITS | Encounter Summary ---
Author Organization [facility] Address 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 [address], [place] [address] PCP - General Internal Medicine 05/19/19 documented as of this encounter
--- OUTSIDE RECORDS SUMMARY | 2024-09-24 20:59 | XMS_ITS | Encounter Summary ---
Author Organization [facility] Address [address] [place] [address]. [place] [address] [place] [address] Care Team Providers Care Executive Associate Name Role Phone Fadumo Garay MD Primary Care Provider [phone] Encounter Details Date Type Department Care Team (Late st Contact Info) Description 06/27/2020 MyChart Message Enc [facility] Neuroscience [facility] [address] [place] [address] Rio Yan MD 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 No / Unsure 06/06/2020 2:45 PM CDT documented as of this encounter Plan of Treatment Not on file documented as of this encounter Visit Diagnoses Not on filedocumented in this encounter Care Teams Executive Associate Relationship Specialty Start Date End Date Fadumo Garay MD [address], [place] [address] PCP - General INTERNAL MEDICINE 10/15/19 documented as of this encounter
--- OUTSIDE RECORDS SUMMARY | 2024-09-24 20:59 | XMS_ITS | Encounter Summary ---
Author Organization [facility] Address [address] [place] [address]. [place] [address] [place] [address] Care Team Providers Care Credit Review Manager Name Role Phone Fadumo Garay MD Primary Care Provider [phone] Encounter Details Date Type Department Care Team (Latest Contact Info) Description 07/05/2020 MyChart Message Enc [facility] Neuroscience [facility] [address], [place] [address] Rio Yan MD 

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
--- OUTSIDE RECORDS SUMMARY | 2024-09-24 20:59 | XMS_ITS | Clinical Summary ---
Author Organization [facility] [address] Address [address] [place] [address] Phone Care Team Providers Care Sales Service Coordinator Name Role Phone Fadumo Garay MD Primary Care Provider [phone] Allergies Active Allergy Reactions Criticality Noted Date Comments Erythromycin Unknown 05/17/2015 Medications mometasone (NASONEX) 50 mcg/actuation [place], Non-Aerosol Administer 1 [place] in each nostril daily. Active cetirizine (ZYRTEC) 10 mg tablet Take 10 mg by mouth daily. Active Aspirin, Buffered 81 mg Tablet Take 81 mg by mouth daily. Active hydrochlorothia zide (MICROZIDE) 12.5 mg capsule 5 Active atorvastatin (LIPITOR) 10 mg tablet Take 10 mg by mouth daily with supper. Active amitriptyline (ELAVIL) 10 mg tabletIndicatio ns:Cervical radicular pain Take 1 Tablet (10 mg) by mouth daily at bedtime. Take 1 tablet at night for 7 days then stop 7 Tablet 9 Active gabapentin (NEURONTIN) 100 mg capsule TAKE 3 CAPSULES BY MOUTH EVERY NIGHT AT BEDTIME 90 Capsule 4 0 Active Active Problems Problem Noted Date Diagnosed Date Sprain of wrist, right 05/17/2015 Family History Medical History Relation Name Comments Hypertension Maternal Grandmother Cancer Mother Relation Name Status Comments Maternal Grandmother Mother Social History Tobacco Use Types Packs/Day Years Used Date Smoking Tobacco: Never Smokeless Tobacco: Never Alcohol Use Standard Drinks/Week Comments Yes 6 (1 standard drink = 0.6 oz pur e alcohol) Sex and Gender Information Value Date Recorded Sex Assigned at Not on file 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 Gender Identity Not on file Sexual Orientation Not on file Last Filed Vital Signs Vital Sign Reading Time Taken Comments Blood Pressure 160/108 05/19/2019 11:05 AM CDT Pulse 76 05/19/2019 11:05 AM CDT Temperature - - Respiratory Rate - - Oxygen Saturation - - Inhaled Oxygen Concentration - - Weight 112 kg (247 lb) 05/19/2019 11:05 AM CDT Height 185.4 cm (6' 1 ) 05/19/2019 11:05 AM CDT Body Mass Index 32.59 05/19/2019 11:05 AM CDT Plan of Treatment Health Maintenance Due Date Last Done Comments HEPATITIS B VACCINES (1 of 3 - 19+ 3-dose series) 1990 COLORECTAL SCREENING 2016 Colorectal Cancer Screening 2016 FIT-DNA Q 3 years 2016 FIT/FOBT Q 1 year 2016 Flex Sig/CT Colonography Q 5 years 2016 ZOSTER VACCINE (1 of 2) 2021 INFLUENZA VACCINE (#1) 2024 DTAP/TDAP/TD VACCINES (2 - T d or Tdap) 06/20/2030 06/20/2020 PNEUMOCOCCAL VACCINE 0-64 YEARS Aged Out No longer eligible based on patient's age to complete this topic Insurance BLUE ACCESS CHOICE Care Teams Sales Service Coordinator Relationship Specialty Start Date End Date Fadumo Garay MD [address] [address] PCP - General Internal Medicine 05/19/19
--- OUTSIDE RECORDS SUMMARY | 2024-09-24 20:59 | XMS_ITS | Encounter Summary ---
Author Organization [facility] Address 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
--- OUTSIDE RECORDS SUMMARY | 2024-09-24 20:59 | XMS_ITS | Encounter Summary ---
Author Organization [employer] Address [address] [place] [address] Care Team Providers Care Contact Lens Blocker Name Role Phone Fadumo Garay MD Primary Care Provider [phone] Encounter Details Date Type Department Care Team (Latest Contact Info) Description 04/02/2002 Outpatient Historical [facility] [place] [address] [place] [address] REMOVAL INT FIXATION DEV (Primary Dx) Social History Tobacco Use Types Packs/Day Years Used Date Smoking Tobacco: Never Assessed Sex and Gender Information Value Date Recorded Sex Assigned at Not on file Legal Sex Male 3:39 AM PRACTICE ADVISOR Gender Identity Not on file Sexual Orientation Not on file documented as of this encounter Plan of Treatment Not on file documented as of this encounter Visit Diagnoses Diagnosis Aftercare involving internal fixation device- Primary documented in this encounter Care Teams Contact Lens Blocker Relationship Specialty Start Date End Date Fadumo Garay MD [address] [place] [address] PCP - General Internal Medicine 05/19/19 documented as of this encounter
--- OUTSIDE RECORDS SUMMARY | 2024-09-24 20:59 | XMS_ITS | Encounter Summary ---
Author Organization [facility] Healthcare Address [address] [place] [address] Care Team Providers Care Athletic Director Name Role Phone Fadumo Garay MD Primary Care Provider Encounter Details Date Type Department Care Team (Late st Contact Info) Description 12/14/2020 Telephone [facility] - [facility] [address] [place] [address] Transcribed Order, Provider Social History Tobacco Use Types Packs/Day Years Used Date Smoking Tobacco: Never Smokeless Tobacco: Never Alcohol Use Standard Drinks/Week Comments Yes 0 (1 standard drink = 0.6 oz pur e alcohol) PHQ-2 Answer Date Recorded PHQ-2 Total Score (If total score is 3 or more points, staff should administer the PHQ-9) 0 11/17/2020 Sex and Gender Information Value Date Recorded Sex Assigned at Not on file Legal Sex Male 12:23 PM BIBLIOGRAPHIC SERVICES SPECIALIST Gender Identity Not on file Sexual Orientation Not on file documented as of this encounter Plan of Treatment Not on file documented as of this encounter Goals Goal Patient Goal Type Associated Problems Recent Progress Patient-Stated? Author CCM Chronic Pain Care Plan Chronic Care Management No Aye Torres, RN Note: Problem: Chronic Pain Goals: 1. Minimize further functional decline 2. Maximize quality of life 3. Control pain Strategies: - Activity/exercise program recommendation - Conservative stepwise pain medicine strategy with multi-disciplinary approach - Recommend healthy lifestyle strategies and compensatory methods as needed documented as of this encounter Visit Diagnoses Not on filedocumented in this encounter Care Teams Athletic Director Relationship Specialty Start Date End Date Fadumo Garay MD [address] [facility] [address], [place] [address] PCP - General 05/28/13 documented as of this encounter
--- OUTSIDE RECORDS SUMMARY | 2024-09-24 20:59 | XMS_ITS | Referral Summary ---
Author Organization [facility] Address [address] [place] [address] Care Team Providers Care Firearms Model Maker Name Role Phone Fadumo Garay MD Primary Care Provider Encounters Date Type Department Care Team Description 08/27/2024 11:00 AM SPEECH AND LANGUAGE TUTOR Office Visit [facility] [address] [address] Huber Fraire MD Deviated nasal septum (Primary Dx); Hypertrophy of nasal turbinates; Bilateral sensorineural hearing loss; Tinnitus of both ears 07/13/2024 10:00 AM SPEECH AND LANGUAGE TUTOR Office Visit [facility] [address] [address] Fadumo Garay MD Routine medical exam (Primary Dx); Primary hypertension; Hypercholesterolemia; Abnormal hemoglobin (HCC); Class 2 severe obesity with body mass index (BMI) of 35 to 39.9 with serious comorbidity (HCC) from Last 3 Months Allergies No known active allergies Medications cyanocobalamin [...] filter Assessment & Plan (07/01/2017 1:48 PM SPEECH AND LANGUAGE TUTOR): Continue use of CPAP machine as previously [...] medications Assessment & Plan (09/17/2018 11:23 AM SPEECH AND LANGUAGE TUTOR): Patient has BL hypertension with BP as [...] - Medicine will sign off; please call [phone] with questions Assessment & Plan (09/16/2018 3:23 PM SPEECH AND LANGUAGE TUTOR): Patient has BL hypertension with BP as [...] Medicine will continue to follow; please call [phone] with questions Atopic rhinitis 10/12/2013 Overview (11/29/2016): [...] 11/06/19 Assessment & Plan (08/06/2019 5:33 PM SPEECH AND LANGUAGE TUTOR): Patient with ongoing shortness of breath after being seen at the urgent care center approximately 5 days ago. He has been using his albuterol inhaler every 4-6 hours with limited relief. Improvement after albuterol nebulized treatment given in right lung aeration. Left lung full breath sounds throughout prior to albuterol treatment I've referred him to [facility] pulmonology at this time for concerns of [...] CDT): Patient declined eval in ER at [facility]- discussed risks of fracture and trauma- he verbalized understainding. Acute midline thoracic back pain 02/25/2018 11/19/2018 Assessment & Plan (02/25/2018 4:59 PM CDT): Concern for fracture.- xray BMI 33.0-33.9,adult 03/25/2017 10/12/19 20 Assessment & Plan (08/06/2019 5:30 PM SPEECH AND LANGUAGE TUTOR): BMI Follow-up includes: education provided. Assessment & Plan (07/01/2017 1:48 PM SPEECH AND LANGUAGE TUTOR): BMI Follow-up includes:Try to work on diet, [...] not tolerate Also tried cymbalta no help Immunizations Name Administration Dates Next Due Influenza, Unspecified 03/27/2023(Deferr ed: Patient Refused),08/06/2019(Deferred: Patient Refused),11/19/2018(Deferred: Patient Refused),07/01/2017(Deferred: Patient Refused) Td, adsorbed 04/29/2010 Tdap 06/20/2020 Social History Tobacco Use Types Packs/Day Years [...] on file Legal Sex Male 12:23 PM SPEECH AND LANGUAGE TUTOR Gender Identity Not on file Sexual Orientation Not on file Last Filed Vital Signs Vital Sign Reading Time Taken Comments Blood Pressure 126/80 07/13/2024 9:54 AM SPEECH AND LANGUAGE TUTOR Pulse 73 07/13/2024 9:54 AM SPEECH AND LANGUAGE TUTOR Temperature 36.5 ??C (97.7 ??F) 03/09/2024 3:47 PM CD T Respiratory Rate 16 07/02/2022 1:36 PM SPEECH AND LANGUAGE TUTOR Oxygen Saturation 97% 07/13/2024 9:54 AM SPEECH AND LANGUAGE TUTOR Inhaled Oxygen Concentration - - Weight 108 kg (238 lb) 08/27/2024 10:54 AM SPEECH AND LANGUAGE TUTOR Height 182.9 cm (6') 08/27/2024 10:54 AM SPEECH AND LANGUAGE TUTOR Body Mass Index 32.28 08/27/2024 10:54 AM SPEECH AND LANGUAGE TUTOR Plan of Treatment Not on file Goals Goal Patient Goal Type Associated Problems [...] C antibody Blood (03/09/2024 4:38 PM CDT) Pathologist [facility] Hep C Ab Nonreactive Nonreactive Comment: Interpretive [...] CDT 03/09/2024 7:06 PM CDT us Jaclyn Ro [facility] OPERATOR LAB MICROBIOLOGY - GENERAL ORD ERABLES Edited Result - Final [facility] [address] [place] [address] * PSA screen (03/02/2024 1:58 PM CDT) Pathologist [facility] PSA-Total 0.82 <=3.90 ng/mL Comment: Interpretive Data [...] PM CDT 03/02/2024 6:25 PM CDT Jaclyn Drew WET END OPERATOR LAB BLOOD ORDERABLES Final Res ult [facility] [address] [place] [address] * Colonoscopy (2018) Anatomical Region Laterality Modality Other Historical Provider MD ENDOSCOPY PROCEDURES Holley l Result from Last 3 Months or Most Recently Relevant to Health Maintenance Insurance [employer] Advance Directives For more information, please contact: [phone] * Full Code (Latest Code Status on File) Date Activated Date Inactivated Comments 09/13/2018 1:24 AM 09/17/2018 6:05 PM Care Teams Firearms Model Maker Relationship Specialty Start Date End Date Fadumo Garay MD [address] [address] PCP - General 05/28/13
--- OUTSIDE RECORDS SUMMARY | 2024-09-24 20:59 | XMS_ITS | Clinical Summary ---
Author Organization [facility] Address [address] [place] [address]. [place], [place] [address] [place] [address] Care Team Providers Care Breaker Operator Name Role Phone Fadumo Garay MD Primary Care Provider [phone] Allergies Active Allergy Reactions Criticality Noted Date Comments Erythromycin Other (see comment),Unknown Low 2014 RASH??? Medications vitamin B-12 1000 MCG tablet Take 1,000 mcg by mouth daily. 10/12/2013 Active Cetirizine HCl (ZYRTEC ALLERGY) 10 MG Cap Take 10 mg by mouth daily. 03/23/2011 Active hydroCHLOROthia zide 25 MG tablet Take 25 mg by mouth daily. 09/23/2019 Active lisinopril 20 MG tablet Take 20 mg by mouth daily. 07/28/2019 Active mometasone 50 MCG/ACT nasal spray 1 spray by Nasal route daily. Active ondansetron 8 MG tablet Take 8 mg by mouth daily. 2018 Active aspirin 81 MG chewable tablet Chew 81 mg by mouth daily. Active Cholecalciferol (VITAMIN D) 50 MCG (1999) Tab Active multi vitamin/mineral s tablet Take 1 tablet by mouth daily. Active atorvastatin 10 MG tablet Take 5 mg by mouth nightly at bedtime. Active tadalafil 20 MG tabletIndicatio ns:Cervical myelopathy ([facility]) One tablet every three days prn 10 tablet 11 08/23/2021 Active Active Problems Problem Noted Date Diagnosed Date Erectile dysfunction due to diseases classified elsewhere 03/10/2020 Cervical myelopathy ([facility]) 01/21/2020 Family History Medical History Relation Comments No Known Problems Brother No Known Problems Father No Known Problems Maternal Aunt No Known Problems Maternal Grandfather No Known Problems Maternal Grandmother No Known Problems Maternal Uncle No Known Problems Mother No Known Problems Paternal Aunt No Known Problems Paternal Grandfather No Known Problems Paternal Grandmother No Known Problems Paternal Uncle No Known Problems Sister Stroke Neg Hx Relation Status Comments Brother Father Maternal Aunt Maternal Grandfather Maternal Grandmother Maternal Uncle Mother Paternal Aunt Paternal Grandfather Paternal Grandmother Paternal Uncle Sister Social History Tobacco Use Types Packs/Day Years Used Date Smoking Tobacco: Never Smokeless Tobacco: Never Tobacco Cessation:Counseling Given: No Alcohol Use Standard Drinks/Week Comments Yes 0 (1 standard drink = 0.6 oz pur e alcohol) socially PHQ-2 Answer Date Recorded PHQ-2 Score - If the patient scores above 3, please move on to questions 3-9 0 08/23/2021 Sex and Gender Information Value Date Recorded Sex Assigned at Not on file Legal Sex Male 2:29 PM ORDNANCE OFFICER Gender Identity Not on file Sexual Orientation Not on file Last Filed Vital Signs Vital Sign Reading Time Taken Comments Blood Pressure 124/86 08/23/2021 10:43 AM ORDNANCE OFFICER Pulse 85 08/23/2021 10:43 AM ORDNANCE OFFICER Temperature 36.3 ??C (97.4 ??F) 12/12/2020 2:24 PM CD T Respiratory Rate - - Oxygen Saturation 97% 08/23/2021 10: 43 AM ORDNANCE OFFICER Inhaled Oxygen Concentration - - Weight 114.9 kg (253 lb 6.4 oz) 021 10:43 AM ORDNANCE OFFICER Height 185.4 cm (6' 1 ) 08/23/2021 10:4 3 AM ORDNANCE OFFICER Body Mass Index 33.43 08/23/2021 10:43 AM ORDNANCE OFFICER Plan of Treatment Health Maintenance Due Date Last Done Comments Colorectal Cancer Screening Colonoscopy (10 Years) 1971 Annual Physical 1974 Hepatitis C 1989 Hepatitis B Vaccines (1 of 3 - 19+ 3-dose series) 1990 Zoster Vaccines (1 of 2) 2021 COVID-19 Vaccine ( - 2023-2 5 season) 2024 Influenza Adult (#1) 2024 DTaP, Tdap and Td Vaccines ( 2 - Td or Tdap) 06/20/2030 06/20/2020, 04/29/2010 Meningococcal B Vaccine Aged Out No l onger eligible based on patient's age to complete this topic Meningococcal Vaccine Aged Out No noel randolph eligible based on patient's age to complete this topic Pneumococcal Vaccine: Pediatrics (0 to 5 Years) and At-Risk Patients (6 to 64 Years) Aged Out No longer eligible b ased on patient's age to complete this topic RSV Immunizations Under 20 Months Aged Out No longer eligible b ased on patient's age to complete this topic Insurance [facility] Care Teams Breaker Operator Relationship Specialty Start Date End Date Fadumo Garay MD [address] [place] [address] PCP - General INTERNAL MEDICINE 10/15/19
[2024-09-24 21:25] VITALS: BP 161/113; PULSE 90; RESP 16; TEMP 36.5; O2SAT 96
--- NOTE | 2024-09-24 21:30 | PC.NURSE ---
wounds cleansed with wound cleanser and gauze. Pt covered with 2 large bandaids. 7 small rowland to top of hand and 4 to palm of hand.
--- NOTE | 2024-09-24 23:34 | ED.ANIMALBIT ---
HPI - Animal Bite General Chief Complaint: Animal Bite Stated Complaint: bites from stray cat Time Seen by Provider: 09/24/24 23:12 Source: patient Mode of arrival: ambulatory Limitations: no limitations History of Present Illness HPI narrative: This is a 54 yo M who presents for chief complaint of animal bite prior to arrival. He was trying to help a stray cat that was injured. Patient states that he will of the cat and when he tried to tend to the cat's hurt leg, the cat bit and scratched his left hand. He states that the cat has visited him a couple times but is not a known pet. Denies any further site of injury. Related Data Home Medications ?Medication ?Instructions ?Recorded ?Confirmed ?Last Taken ?Type hydrochlorothiazide 12.5 mg tablet 12.5 mg PO DAILY 12/18/21 09/14/24 04/23/24 History ibuprofen 200 mg capsule (Advil 200 mg PO Q6H PRN Pain 12/18/21 09/14/24 06/15/23 History Liqui-Gel) lisinopril 10 mg tablet 10 mg PO DAILY 12/18/21 09/14/24 04/23/24 History cetirizine 10 mg tablet (Zyrtec) 10 mg PO DAILY 03/28/22 09/14/24 04/23/24 History multivitamin with minerals (Men's 1 tablet PO DAILY 03/28/22 09/14/24 04/21/24 History One Daily tablet) ergocalciferol (vitamin D2) 1,250 50,000 mcg PO WEEKLY 07/11/23 09/14/24 04/19/24 History mcg (50,000 unit) capsule Allergies Allergy/AdvReac Type Severity Reaction Status Date / Time No Known Allergies Allergy Verified 09/24/24 20:57 Review of Systems Review of Systems: All systems as dictated in HPI [facility] Past Medical History Medical History Herniated disc, cervical C3-7 Right knee injury Pain of right knee after injury Hypertension Chondromalacia patellae of right knee CELY (obstructive sleep apnea) Medial meniscus, posterior horn derangement Surgical History Surgical History S/P right knee arthroscopy DOS 07/16/2023 & 04/24/2024 Hx of arthroscopy of left knee 1989 & 03/2021 Social History Social History Smoking packs per day: 0.25 Smoking cigarettes per day: 5.0 Years smoked: 6 Smoking pack-years: 1.50 Smoking status: Former smoker Tobacco type: cigarettes Second hand tobacco smoke exposure: Yes Smoking end date: 08/26/01 Alcohol intake: current Drinks per week: 1 Alcohol use details: SPECIAL OCCASIONS Substance use: never Substance use type: does not use Last use: 2005 Living arrangements: alone Occupation/Education: occupation 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 HEAD: Normocephalic, atraumatic. EYES: PERRLA and EOMI. ENT: Nares clear, no rhinorrhea or epistaxis. Mucous membranes moist. Oropharynx without tonsillar hypertrophy exudate or other lesions. NECK: Supple. No adenopathy or masses. CHEST: No respiratory distress. Clear to auscultation. No wheezes rales or rhonchi HEART: Regular rate and rhythm. No murmur heard. Normal peripheral pulses. ABDOMEN: Soft, nontender, nondistended, normal active bowel sounds. MSK: Normal range of motion. No edema. SKIN: Several small puncture wound rowland to the volar left hand, thenar eminence. NEURO: Alert and oriented x4. No focal deficits. PSYCH: Normal mood and affect. Course Vital Signs Vital signs: Vital Signs Temperature 97.7 F 09/24/24 21:25 Pulse Rate 90 09/24/24 21:25 Respiratory Rate 16 09/24/24 21:25 Blood Pressure 161/113 H 09/24/24 21:25 Pulse Oximetry 96 09/24/24 21:25 Temperature 97.7 F 09/24/24 21:25 Pulse Rate 92 09/25/24 00:50 Respiratory Rate 17 09/25/24 00:50 Blood Pressure 145/86 H 09/25/24 00:50 Pulse Oximetry 100 09/25/24 00:50 MDM - Animal Bite MDM Narrative Medical decision making narrative: This is a 54-year-old male who presents to the ED for chief complaint of cat bite from straight CT today. Vitals are normal. Exam is remarkable for the above with cat bites to the left hand. The bites were well cleansed and irrigated here. He was started on Augmentin for antibacterial prophylaxis. States he is up-to-date on his tetanus. Long discussion regarding the risk versus benefits of rabies vaccine today due to cat bite. I explained that there is no endemic risk of rabies in this area. It is extremely unlikely to have a rabies infection from a dog wreck cap by aid in the [place] I did state this is the cat is a stray and unable to be observed, I cannot completely rule out the need for rabies vaccines. Patient is electing to decline for rabies vaccine at this time and will try to find the CT again to have it observed by animal control. He was given Rx for Augmentin Patient will be discharged in stable condition. Supportive measures discussed and return precautions given. Patient is understanding and agreeable with plan for discharge with PCP follow-up. Discharge Plan Discharge Clinical Impression: Bite by animal, Cat bite Patient Disposition: Home, Self-Care Condition: Stable Instructions: Antibiotic Form, Animal Bite (ED) Additional Instructions: Please try to have the cat observed by animal control. If you are unable to do so and would like to proceed with rabies vaccine injections, please return to the ER proceed to the health department. Otherwise please take antibiotics as prescribed and through the full course If you have any new or worsening symptoms please return to the ER for further evaluation. Patient Language: Saudi Arabian Prescriptions: New amoxicillin-pot clavulanate 875-125 mg tablet 1 tablet PO Q12H Qty: 10 0RF No Action lisinopril 10 mg tablet 10 mg PO DAILY hydrochlorothiazide 12.5 mg tablet 12.5 mg PO DAILY ibuprofen [Advil Liqui-Gel] 200 mg capsule 200 mg PO Q6H PRN (Reason: Pain) cetirizine [Zyrtec] 10 mg Tablet 10 mg PO DAILY Men's One Daily Tablet 1 tablet PO DAILY ergocalciferol (vitamin D2) 1,250 mcg (50,000 unit) capsule 50,000 mcg PO WEEKLY Rx Instructions: TAKES ON SATURDAY Follow-up/Referrals: CARLYN,MANUELITO Ro M.D. [Primary Care Provider] - Time of Disposition: 00:28
[2024-09-24] MEDS: AMOXICILLIN/CLAVULANATE K 875-125 MG TAB 1 TABLET PO (23:59)
--- OUTSIDE RECORDS SUMMARY | 2024-09-25 00:01 | XMS_ITS | Clinical Summary ---
Author Organization [facility] [address] Address [address] [place] [address] Phone Care Team Providers Care Slug Press Operator Name Role Phone Fadumo Garay MD Primary Care Provider [phone] Allergies Active Allergy Reactions Criticality Noted Date Comments Erythromycin Unknown 05/17/2015 Medications mometasone (NASONEX) 50 mcg/actuation [place], Non-Aerosol Administer 1 [place] in each nostril daily. Active cetirizine (ZYRTEC) [...] on file Legal Sex Male 3:39 AM DIRECTOR AUTO Gender Identity Not on file Sexual Orientation [...] topic Insurance [employer] Care Teams Slug Press Operator Relationship Specialty Start Date End Date Fadumo Garay MD [address] [address] PCP - General Internal Medicine 05/19/19
--- OUTSIDE RECORDS SUMMARY | 2024-09-25 00:01 | XMS_ITS | Encounter Summary ---
Author Organization [employer] Address [address] [place] [address] Care Team Providers Care Bias Binding Folder Name Role Phone Fadumo Garay MD Primary Care Provider [phone] Encounter Details Date Type Department Care Team (Latest Contact Info) Description 01/26/2002 Outpatient Historical [facility] [place] [address] [place] [address] [address] FX NAVICULAR, WRIST-CLOSE (Primary Dx) Social History Tobacco Use Types Packs/Day Years Used Date Smoking Tobacco: Never Assessed Sex and Gender Information Value Date Recorded Sex Assigned at Not on file Legal Sex Male 3:39 AM HARDBOARD PANEL PRINTER Gender Identity Not on file Sexual Orientation Not on file documented as of this encounter Plan of Treatment Not on file documented as of this encounter Visit Diagnoses Diagnosis Closed fracture of navicular (scaphoid) bone of wrist- Primary documented in this encounter Care Teams Bias Binding Folder Relationship Specialty Start Date End Date Fadumo Garay MD [address] [address] PCP - General Internal Medicine 05/19/19 documented as of this encounter
--- OUTSIDE RECORDS SUMMARY | 2024-09-25 00:01 | XMS_ITS | Encounter Summary ---
Author Organization [employer] Address [address] [place] [address] Care Team Providers Care Belt Buckle Maker Name Role Phone Fadumo Garay MD Primary Care Provider Encounter Details Date Type Department Care Team (Late st Contact Info) Description 07/28/2002 Outpatient Historical [facility] Gil Coats MD [address] [place] [address] ENDOCRINE ANOMALY NEC (Primary Dx) Social History Tobacco Use Types Packs/Day Years Used Date Smoking Tobacco: Never Assessed Sex and Gender Information Value Date Recorded Sex Assigned at Not on file Legal Sex Male 3:39 AM HEAD OF STORE OPERATIONS Gender Identity Not on file Sexual Orientation Not on file documented as of this encounter Plan of Treatment Not on file documented as of this encounter Visit Diagnoses Diagnosis 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
--- OUTSIDE RECORDS SUMMARY | 2024-09-25 00:01 | XMS_ITS | Encounter Summary ---
Author Organization [employer] Address [address] [place] [address] Care Team Providers Care Production Laborer Name Role Phone Fadumo Garay MD Primary Care Provider [phone] Encounter Details Date Type Department Care Team (Latest Contact Info) Description 04/02/2002 Outpatient Historical [place] [address] [place] [place] [address] REMOVAL INT FIXATION DEV (Primary Dx) Social History Tobacco Use Types Packs/Day Years Used Date Smoking Tobacco: Never Assessed Sex and Gender Information Value Date Recorded Sex Assigned at Not on file Legal Sex Male 3:39 AM LAY UP OPERATOR Gender Identity Not on file Sexual Orientation Not on file documented as of this encounter Plan of Treatment Not on file documented as of this encounter Visit Diagnoses Diagnosis Aftercare involving internal fixation device- Primary documented in this encounter Care Teams Production Laborer Relationship Specialty Start Date End Date Fadumo Garay MD [address] [place] [address] PCP - General Internal Medicine 05/19/19 documented as of this encounter
[2024-09-25 00:50] VITALS: BP 145/86; PULSE 92; RESP 17; O2SAT 100
== END 2024-09-25 00:52 | disposition home or self-care (01) ==
PROVIDERS: Emergency Provider Physician Assistant; PCP Internal Medicine
DX: S61.452A Open bite of left hand, initial encounter (principal); I10 Essential (primary) hypertension; G47.33 Obstructive sleep apnea (adult) (pediatric); Z87.891 Personal history of nicotine dependence; W55.01XA Bitten by cat, initial encounter
CPT/HCPCS: 99283; A9270

== ENCOUNTER 2024-09-25 11:17 | Observation (INO) | payer BC, SELFPAY ==
--- OUTSIDE RECORDS SUMMARY | 2024-09-25 11:20 | XMS_ITS | Encounter Summary ---
Author Organization [facility] Address [address] [place] [address]. [place] [address] [place] [address] Care Team Providers Care Lastex Operator Name Role Phone Fadumo Garay MD Primary Care Provider [phone] Encounter Details Date Type Department Care Team (Late st Contact Info) Description 06/27/2020 MyChart Message Enc [facility] Neuroscience [facility] [address] [place] [address] Rio Yan MD [address] [place] [address] Question Social History Tobacco Use Types Packs/Day Years Used Date Smoking Tobacco: Never Smokeless Tobacco: Never Alcohol Use Standard Drinks/Week Comments Yes 0 (1 standard drink = 0.6 oz pur e alcohol) socially Sex and Gender Information Value Date Recorded Sex Assigned at Not on file Legal Sex Male 2:29 PM PROCESSING REP Gender Identity Not on file Sexual Orientation [...] on filedocumented in this encounter Care Teams Lastex Operator Relationship Specialty Start Date End Date Fadumo Garay MD [address] [address] PCP - General INTERNAL MEDICINE 10/15/19 documented as of this encounter
--- OUTSIDE RECORDS SUMMARY | 2024-09-25 11:20 | XMS_ITS | Clinical Summary ---
Author Organization [facility] Address [address] [place] [address] Care Team Providers Care Cosmetics And Toiletries Salesperson Name Role Phone Fadumo Garay MD Primary [...] filter Assessment & Plan (07/01/2017 1:48 PM SILK CONDITIONER): Continue use of CPAP machine as previously [...] medications Assessment & Plan (09/17/2018 11:23 AM SILK CONDITIONER): Patient has BL hypertension with BP as [...] - Medicine will sign off; please call [phone] with questions Assessment & Plan (09/16/2018 3:23 PM SILK CONDITIONER): Patient has BL hypertension with BP as [...] Medicine will continue to follow; please call [phone] with questions Atopic rhinitis 10/12/2013 Overview (11/29/2016): [...] 11/06/19 Assessment & Plan (08/06/2019 5:33 PM SILK CONDITIONER): Patient with ongoing shortness of breath after being seen at the urgent care center approximately 5 days ago. He has been using his albuterol inhaler every 4-6 hours with limited relief. Improvement after albuterol nebulized treatment given in right lung aeration. Left lung full breath sounds throughout prior to albuterol treatment I've referred him to [facility] pulmonology at this time for concerns [...] CDT): Patient declined eval in ER at [facility]- discussed risks of fracture and trauma- he verbalized understainding. Acute midline thoracic back pain 02/25/2018 11/19/2018 Assessment & Plan (02/25/2018 4:59 PM CDT): Concern for fracture.- xray BMI 33.0-33.9,adult 03/25/2017 10/12/19 20 Assessment & Plan (08/06/2019 5:30 PM SILK CONDITIONER): BMI Follow-up includes: education provided. Assessment & Plan (07/01/2017 1:48 PM SILK CONDITIONER): BMI Follow-up includes:Try to work on diet, [...] Department Care Team Description 08/27/2024 11:00 AM SILK CONDITIONER Office Visit [facility] E[facility] Specialists - [facility] [address] [id number] Huber Fraire MD Deviated nasal septum (Primary Dx); Hypertrophy of nasal turbinates; Bilateral sensorineural hearing loss; Tinnitus of both ears 07/13/2024 10:00 AM SILK CONDITIONER Office Visit [facility] Primary Care at [facility] [address] [address] Fadumo Garay MD Routine medical exam (Primary [...] on file Legal Sex Male 12:23 PM SILK CONDITIONER Gender Identity Not on file Sexual Orientation Not on file Obstetrics History Last Filed Vital Signs Vital Sign Reading Time Taken Comments Blood Pressure 126/80 07/13/2024 9:54 AM SILK CONDITIONER Pulse 73 07/13/2024 9:54 AM SILK CONDITIONER Temperature 36.5 ??C (97.7 ??F) 03/09/2024 3:47 PM CD T Respiratory Rate 16 07/02/2022 1:36 PM SILK CONDITIONER Oxygen Saturation 97% 07/13/2024 9:54 AM SILK CONDITIONER Inhaled Oxygen Concentration - - Weight 108 kg (238 lb) 08/27/2024 10:54 AM SILK CONDITIONER Height 182.9 cm (6') 08/27/2024 10:54 AM SILK CONDITIONER Body Mass Index 32.28 08/27/2024 10:54 AM SILK CONDITIONER Plan of Treatment Health Maintenance Due Date [...] 03/09/2024 7:06 PM CDT us Jaclyn Drew HIGH SCHOOL COUNSELOR LAB MICROBIOLOGY - GENERAL ORD ERABLES Edited Result - Final [facility] [address] Department [place] [address] * PSA screen (03/02/2024 1:58 [...] CDT 03/02/2024 6:25 PM CDT Jaclyn Burciaga HIGH SCHOOL COUNSELOR LAB BLOOD ORDERABLES Final Res ult Performing Organization Address City/State/[facility] Co de Phone Number [facility] [address] Department [place] [address] * Colonoscopy (2018) Anatomical Region Laterality Modality Other Historical Provider ENDOSCOPY PROCEDURES Holley l Result from Last 3 Months or Most Recently Relevant to Health Maintenance Insurance [facility] [employer] CHOICE AN[facility] [facility] Address: [facility] [id number] [place] [address] Advance Directives For more information, please contact: [phone] * Full Code (Latest Code Status on File) Date Activated Date Inactivated Comments 09/13/2018 1:24 AM 09/17/2018 6:05 PM Care Teams Cosmetics And Toiletries Salesperson Relationship Specialty Start Date End Date Fadumo Garay MD [address] [address] PCP - General 05/28/13
--- OUTSIDE RECORDS SUMMARY | 2024-09-25 11:20 | XMS_ITS | Encounter Summary ---
Author Organization [facility] Address [address] [place] [address] Care Team Providers Care Entertainment & Media Correspondent Name Role Phone Fadumo Garay MD Primary Care Provider [phone] Encounter Details Date Type Department Care Team (Late st Contact Info) Description 07/28/2002 Outpatient Historical [facility] Gil Coats MD [address] [facility] [place] [address] ENDOCRINE ANOMALY NEC (Primary Dx) Social History Tobacco Use Types Packs/Day Years Used Date Smoking Tobacco: Never Assessed Sex and Gender Information Value Date Recorded Sex Assigned at Not on file Legal Sex Male 3:39 AM BOOTH USHER Gender Identity Not on file Sexual Orientation Not on file documented as of this encounter Plan of Treatment Not on file documented as of this encounter Visit Diagnoses Diagnosis 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
--- OUTSIDE RECORDS SUMMARY | 2024-09-25 11:20 | XMS_ITS | Clinical Summary ---
Author Organization [facility] Address [address] [place] [address]. [place], [place] [address] [place] [address] Care Team Providers Care Architectural Superintendent Name Role Phone Fadumo Garay MD Primary Care Provider [phone] Allergies Active Allergy Reactions Criticality Noted Date [...] Active tadalafil 20 MG tabletIndicatio ns:Cervical myelopathy ([facility]) One tablet every three days prn 10 tablet 11 08/23/2021 Active Active Problems Problem Noted Date Diagnosed Date Erectile dysfunction due to diseases classified elsewhere 03/10/2020 Cervical myelopathy ([facility]) 01/21/2020 Family History Medical History Relation Comments [...] on file Legal Sex Male 2:29 PM HOSPICE ART THERAPIST Gender Identity Not on file Sexual Orientation Not on file Last Filed Vital Signs Vital Sign Reading Time Taken Comments Blood Pressure 124/86 08/23/2021 10:43 AM HOSPICE ART THERAPIST Pulse 85 08/23/2021 10:43 AM HOSPICE ART THERAPIST Temperature 36.3 ??C (97.4 ??F) 12/12/2020 2:24 PM CD T Respiratory Rate - - Oxygen Saturation 97% 08/23/2021 10: 43 AM HOSPICE ART THERAPIST Inhaled Oxygen Concentration - - Weight 114.9 kg (253 lb 6.4 oz) 021 10:43 AM HOSPICE ART THERAPIST Height 185.4 cm (6' 1 ) 08/23/2021 10:4 3 AM HOSPICE ART THERAPIST Body Mass Index 33.43 08/23/2021 10:43 AM HOSPICE ART THERAPIST Plan of Treatment Health Maintenance Due Date [...] patient's age to complete this topic Insurance [facility] Care Teams Architectural Superintendent Relationship Specialty Start Date End Date Fadumo Garay MD [address] [place] [address] PCP - General INTERNAL MEDICINE 10/15/19
--- OUTSIDE RECORDS SUMMARY | 2024-09-25 11:20 | XMS_ITS | Encounter Summary ---
Author Organization [employer] Address [address] [place] [address] Care Team Providers Care Grinder Set Up Operator Name Role Phone Fadumo Garay MD Primary Care Provider Encounter Details Date Type Department Care Team (Latest Contact Info) Description 04/02/2002 Outpatient Historical [place] [address] [place] [address] REMOVAL INT FIXATION DEV (Primary Dx) Social History Tobacco Use Types Packs/Day Years Used Date Smoking Tobacco: Never Assessed Sex and Gender Information Value Date Recorded Sex Assigned at Not on file Legal Sex Male 3:39 AM OPTICAL DESIGNER Gender Identity Not on file Sexual Orientation Not on file documented as of this encounter Plan of Treatment Not on file documented as of this encounter Visit Diagnoses Diagnosis Aftercare involving internal fixation device- Primary documented in this encounter Care Teams Grinder Set Up Operator Relationship Specialty Start Date End Date Fadumo Garay MD [address] [place] [address] PCP - General Internal Medicine 05/19/19 documented as of this encounter
--- OUTSIDE RECORDS SUMMARY | 2024-09-25 11:20 | XMS_ITS | Encounter Summary ---
Author Organization [facility] Address [address] [place] [address] Care Team Providers Care Education Department Chair Name Role Phone Fadumo Garay MD Primary Care Provider [phone] Encounter Details Date Type Department Care Team (Late st Contact Info) Description 12/14/2020 Telephone [facility] [address] [place] [address] Transcribed Order, Provider Social History [...] on file Legal Sex Male 12:23 PM WIRER PASSENGER CAR Gender Identity Not on file Sexual Orientation [...] on filedocumented in this encounter Care Teams Education Department Chair Relationship Specialty Start Date End Date Fadumo Garay MD [address] [facility] [address], [place] [address] PCP - General 05/28/13 documented as of this encounter
--- OUTSIDE RECORDS SUMMARY | 2024-09-25 11:20 | XMS_ITS | Clinical Summary ---
Author Organization [facility] [address] Address [address] [place] [address] Phone Care Team Providers Care Bin Piler Name Role Phone Fadumo Garay MD Primary Care Provider [phone] Allergies Active Allergy Reactions Criticality Noted Date Comments Erythromycin Unknown 05/17/2015 Medications mometasone (NASONEX) 50 mcg/actuation [place], Non-Aerosol Administer 1 [place] in each nostril daily. Active cetirizine (ZYRTEC) [...] on file Legal Sex Male 3:39 AM COPYRIGHT MANAGER Gender Identity Not on file Sexual Orientation [...] topic Insurance BLUE [employer]ESS CHOICE Care Teams Bin Piler Relationship Specialty Start Date End Date Fadumo Garay MD [address] [address] PCP - General Internal Medicine 05/19/19
--- OUTSIDE RECORDS SUMMARY | 2024-09-25 11:20 | XMS_ITS | Referral Summary ---
Author Organization [facility] Address [address] [place] [address] Care Team Providers Care Structural Shop Helper Name Role Phone Fadumo Garay MD Primary Care Provider [phone] Encounters Date Type Department Care Team Description 08/27/2024 11:00 AM QUALITY PROCESS ENGINEER Office Visit [facility] - [facility] [address] [address] Huber Fraire MD Deviated nasal septum (Primary Dx); Hypertrophy of nasal turbinates; Bilateral sensorineural hearing loss; Tinnitus of both ears 07/13/2024 10:00 AM QUALITY PROCESS ENGINEER Office Visit [facility] Primary Care at [facility] [address] [address] Fadumo Garay MD Routine medical [...] filter Assessment & Plan (07/01/2017 1:48 PM QUALITY PROCESS ENGINEER): Continue use of CPAP machine as previously [...] medications Assessment & Plan (09/17/2018 11:23 AM QUALITY PROCESS ENGINEER): Patient has BL hypertension with BP as [...] - Medicine will sign off; please call [phone] with questions Assessment & Plan (09/16/2018 3:23 PM QUALITY PROCESS ENGINEER): Patient has BL hypertension with BP as [...] Medicine will continue to follow; please call [phone] with questions Atopic rhinitis 10/12/2013 Overview (11/29/2016): [...] 11/06/19 Assessment & Plan (08/06/2019 5:33 PM QUALITY PROCESS ENGINEER): Patient with ongoing shortness of breath after being seen at the urgent care center approximately 5 days ago. He has been using his albuterol inhaler every 4-6 hours with limited relief. Improvement after albuterol nebulized treatment given in right lung aeration. Left lung full breath sounds throughout prior to albuterol treatment I've referred him to [facility] pulmonology at this time for concerns [...] declined eval in ER at [facility]- discussed risks of fracture and trauma- he verbalized understainding. Acute midline thoracic back pain 02/25/2018 11/19/2018 Assessment & Plan (02/25/2018 4:59 PM CDT): Concern for fracture.- xray BMI 33.0-33.9,adult 03/25/2017 10/12/19 20 Assessment & Plan (08/06/2019 5:30 PM QUALITY PROCESS ENGINEER): BMI Follow-up includes: education provided. Assessment & Plan (07/01/2017 1:48 PM QUALITY PROCESS ENGINEER): BMI Follow-up includes:Try to work on diet, [...] on file Legal Sex Male 12:23 PM QUALITY PROCESS ENGINEER Gender Identity Not on file Sexual Orientation Not on file Last Filed Vital Signs Vital Sign Reading Time Taken Comments Blood Pressure 126/80 07/13/2024 9:54 AM QUALITY PROCESS ENGINEER Pulse 73 07/13/2024 9:54 AM QUALITY PROCESS ENGINEER Temperature 36.5 ??C (97.7 ??F) 03/09/2024 3:47 PM CD T Respiratory Rate 16 07/02/2022 1:36 PM QUALITY PROCESS ENGINEER Oxygen Saturation 97% 07/13/2024 9:54 AM QUALITY PROCESS ENGINEER Inhaled Oxygen Concentration - - Weight 108 kg (238 lb) 08/27/2024 10:54 AM QUALITY PROCESS ENGINEER Height 182.9 cm (6') 08/27/2024 10:54 AM QUALITY PROCESS ENGINEER Body Mass Index 32.28 08/27/2024 10:54 AM QUALITY PROCESS ENGINEER Plan of Treatment Not on file Goals [...] antibody Blood (03/09/2024 4:38 PM CDT) Pathologist [facility] Hep C Ab Nonreactive Nonreactive Comment: Interpretive [...] 03/09/2024 7:06 PM CDT us Jaclyn Ro [facility] RESTAURANT CREW PERSON LAB MICROBIOLOGY - GENERAL ORD ERABLES Edited Result - Final [facility] [address] Department [place] [address] * PSA screen (03/02/2024 1:58 PM CDT) Pathologist [facility] PSA-Total 0.82 <=3.90 ng/mL Comment: Interpretive Data [...] CDT 03/02/2024 6:25 PM CDT Jaclyn Drew RESTAURANT CREW PERSON LAB BLOOD ORDERABLES Final Res ult [facility] [address] Department [email or web address] [place] [address] * Colonoscopy (2018) Anatomical Region Laterality Modality Other Historical Provider MD ENDOSCOPY PROCEDURES Holley l Result from Last 3 Months or Most Recently Relevant to Health Maintenance Insurance Runa Runa Advance Directives For more information, please contact: [phone] * Full Code (Latest Code Status on File) Date Activated Date Inactivated Comments 09/13/2018 1:24 AM 09/17/2018 6:05 PM Care Teams Structural Shop Helper Relationship Specialty Start Date End Date Fadumo Garay MD [address] [address] PCP - General 05/28/13
--- OUTSIDE RECORDS SUMMARY | 2024-09-25 11:20 | XMS_ITS | Encounter Summary ---
Author Organization [employer] Address [address] [place] [address] Care Team Providers Care Drum Plater Name Role Phone Fadumo Garay MD Primary Care Provider [phone] Encounter Details Date Type Department Care Team (Latest Contact Info) Description 01/26/2002 Outpatient Historical [place] [address] [place] [address] [address] FX NAVICULAR, WRIST-CLOSE (Primary Dx) Social History Tobacco Use Types Packs/Day Years Used Date Smoking Tobacco: Never Assessed Sex and Gender Information Value Date Recorded Sex Assigned at Not on file Legal Sex Male 3:39 AM PHOTOGRAPHIC EQUIPMENT INSPECTOR Gender Identity Not on file Sexual Orientation Not on file documented as of this encounter Plan of Treatment Not on file documented as of this encounter Visit Diagnoses Diagnosis Closed fracture of navicular (scaphoid) bone of wrist- Primary documented in this encounter Care Teams Drum Plater Relationship Specialty Start Date End Date Fadumo Garay MD [address] [address] PCP - General Internal Medicine 05/19/19 documented as of this encounter
--- OUTSIDE RECORDS SUMMARY | 2024-09-25 11:20 | XMS_ITS | Encounter Summary ---
Author Organization [facility] Address [address] [place] [address]. [place] [address] [place] [address] Care Team Providers Care Lead Former Name Role Phone Fadumo Garay MD Primary Care Provider [phone] Encounter Details Date Type Department Care Team (Latest Contact Info) Description 07/05/2020 MyChart Message Enc [facility] Neuroscience [facility] [address] [address] Rio Yan MD [address] [place], [place] [address] Medication Questions Social History Tobacco Use Types Packs/Day Years Used Date Smoking Tobacco: Never Smokeless Tobacco: Never Alcohol Use Standard Drinks/Week Comments Yes 0 (1 standard drink = 0.6 oz pur e alcohol) socially Sex and Gender Information Value Date Recorded Sex Assigned at Not on file Legal Sex Male 2:29 PM SLIP LASTER Gender Identity Not on file Sexual Orientation [...] on filedocumented in this encounter Care Teams Lead Former Relationship Specialty Start Date End Date Fadumo Garay MD [address] [address] PCP - General INTERNAL MEDICINE 10/15/19 documented as of this encounter
[2024-09-25 11:28] VITALS: BP 172/91; PULSE 89; RESP 16; TEMP 36.4; O2SAT 97
--- NOTE | 2024-09-25 13:13 | ED_ITS ---
HPI - Extremity Injury (Upper) General Chief Complaint: Extremity Injury, Upper <Zina Stanton PA-C - Last Filed: 09/26/24 14:41> Stated Complaint: swelling to L. hand - bit by feral cat <Zina Stanton PA-C - Last Filed: 09/26/24 14:41> Time Seen by Provider: 09/25/24 13:13 <Zina Stanton PA-C - Last Filed: 09/26/24 14:41> Focused HPI: This is a 54 year old male that presents to the ER for wound to the left hand. Sustained last night. Was bit by a feral cat. Was given a prescription for Augmentin, was not able to pick this up. Reports worsening pain and swelling in the left hand. It is now streaking up his arm. GENERAL: Well-appearing, well-nourished, and in no acute distress. HEAD: Normocephalic, atraumatic. CHEST: Clear to auscultation. ?No respiratory distress. HEART: Regular rate and rhythm.? NEURO: ?Alert and oriented x3. Patient screened in triage and initial orders placed.? ?Additional care and disposition to be based upon?diagnostic testing and treatment. <Zina Stanton PA-C - Last Filed: 09/26/24 14:41> History of Present Illness HPI narrative: Agree with the above triage note. States last Tdap was in 2019. Patient also desiring to discuss rabies vaccine and immunoglobulin is he declined this last night but is now considering. He denies fever, nausea or vomiting. States the redness has rapidly straight up the left arm and causing her concern. <Maggi Jerez PA-C - Last Filed: 09/25/24 19:52> Related Data Home Medications: Home Medications ?Medication ?Instructions ?Recorded ?Confirmed ?Last Taken ?Type hydrochlorothiazide 12.5 mg tablet 12.5 mg PO DAILY 12/18/21 09/25/24 04/23/24 History ibuprofen 200 mg capsule (Advil 200 mg PO Q6H PRN Pain 12/18/21 09/25/24 06/15/23 History Liqui-Gel) lisinopril 10 mg tablet 10 mg PO DAILY 12/18/21 09/25/24 04/23/24 History cetirizine 10 mg tablet (Zyrtec) 10 mg PO DAILY 03/28/22 09/25/24 04/23/24 History multivitamin with minerals (Men's 1 tablet PO DAILY 03/28/22 09/25/24 04/21/24 History One Daily tablet) ergocalciferol (vitamin D2) 1,250 50,000 mcg PO WEEKLY 07/11/23 09/25/24 04/19/24 History mcg (50,000 unit) capsule amlodipine 5 mg tablet 5 mg PO DAILY@1700 09/25/24 09/25/24 Unknown History hydrochlorothiazide 25 mg tablet 12.5 mg PO DAILY 09/25/24 09/25/24 Unknown History lisinopril 20 mg tablet 20 mg PO DAILY 09/25/24 09/25/24 Unknown History <Zina Stanton PA-C - Last Filed: 09/26/24 14:41> Allergies/Adverse Reactions: Allergies Allergy/AdvReac Type Severity Reaction Status Date / Time No Known Allergies Allergy Verified 09/24/24 20:57 <Zina Stanton PA-C - Last Filed: 09/26/24 14:41> Review of Systems 2 Review of Systems: All systems reviewed & are unremarkable except as noted in HPI and below <Maggi Jerez PA-C - Last Filed: 09/25/24 19:52> [facility] Past Medical History Medical History: Medical History (Updated 09/26/24 @ 00:00 by Houston Wright) CELY (obstructive sleep apnea) CPAP was recalled, no longer using Herniated disc, cervical C3-7 Hypertension Chondromalacia patellae of right knee Medial meniscus, posterior horn derangement <Zina Stanton PA-C - Last Filed: 09/26/24 14:41> Surgical History Surgical History: Surgical History (Updated 09/25/24 @ 22:33 by Dorys Walls PA-C) History of arthroscopy of left knee 1989 and March 2021 History of arthroscopy of right knee 07/16/2023 and 04/24/2024 <Zina Stanton PA-C - Last Filed: 09/26/24 14:41> Social History Social History: Social History (Updated 09/25/24 @ 22:34 by CLEMENTE Wright Social History: Surrogate medical decision maker: Mattie Hinojosa, father. Code status: Full code. Smoking packs per day: 0.25 Smoking cigarettes per day: 5.0 Years smoked: 6 Smoking pack-years: 1.50 Smoking status: Never smoker Tobacco type: cigarettes Second hand tobacco smoke exposure: Yes Smoking end date: 08/26/01 Alcohol intake: never Drinks per week: 1 Alcohol use details: Rare alcohol use in moderation and on special occasions. Substance use: never Substance use type: does not use Last use: 2006 Do You Feel Safe in your Home?: Yes Lack of Transportation: No Lack of Food: Never True Current Housing: I Have Housing Concerned About Future Housing: No Difficulty Paying Gas/Electric Bills: No Difficulty Paying for Meds: No Currently Unemployed: No Education: Bachelor's Degree Difficulty w/ Childcare or Family Care: No Living arrangements: alone Additional living arrangements comments: Lives in [place]. 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 Spiritual care concerns: No <Zina Stanton PA-C - Last Filed: 09/26/24 14:41> Exam 2 Narrative: GENERAL: Well-appearing, well-nourished, and in no acute distress. HEAD: Normocephalic, atraumatic. EYES: EOMI. ENT: Nares clear, no rhinorrhea or epistaxis. Mucous membranes moist. NECK: Supple. CHEST: Clear to auscultation. No respiratory distress. HEART: Regular rate and rhythm. No murmur heard. Normal peripheral pulses. SKIN: LUE: 4 puncture wounds to the palmar aspect of the left hand overlying the thenar eminence with surrounding edema, erythema and warmth, erythema streaking proximally, just proximal to the anterior cubital fossa. No palpable lymphadenopathy. Radial pulse 2 +. Sensation intact. Radial, median and ulnar nerves intact. No palpable foreign bodies, induration, fluctuance. No active drainage from puncture wounds, no deep structures or foreign bodies visualized NEURO: No focal deficits. Alert and oriented x3 <Maggi Jerez PA-C - Last Filed: 09/25/24 19:52> Course [employer] HEL[employer]/PA Physician Supervision For this patient encounter, I reviewed the SANTA'S HELPER or PA documentation, treatment plan, and medical decision making; and I had [id number] time with this patient. <Rio Ortega MD - Last Filed: 09/25/24 22:52> Vital Signs Vital signs: Vital Signs Temperature 97.6 F 09/25/24 11:28 Pulse Rate 89 09/25/24 11:28 Respiratory Rate 16 09/25/24 11:28 Blood Pressure 172/91 H 09/25/24 11:28 Pulse Oximetry 97 09/25/24 11:28 Temperature 97.2 F L 09/26/24 05:21 Pulse Rate 86 09/26/24 05:21 Respiratory Rate 13 09/26/24 05:21 Blood Pressure 145/99 H 09/26/24 05:21 Pulse Oximetry 96 09/26/24 05:21 Oxygen Delivery Room Air 09/25/24 21:24 <Zina Stanton PA-C - Last Filed: 09/26/24 14:41> Vital Signs Temperature 97.6 F 09/25/24 11:28 Pulse Rate 89 09/25/24 11:28 Respiratory Rate 16 09/25/24 11:28 Blood Pressure 172/91 H 09/25/24 11:28 Pulse Oximetry 97 09/25/24 11:28 Temperature 97.2 F L 09/26/24 05:21 Pulse Rate 86 09/26/24 05:21 Respiratory Rate 13 09/26/24 05:21 Blood Pressure 145/99 H 09/26/24 05:21 Pulse Oximetry 96 09/26/24 05:21 Oxygen Delivery Room Air 09/25/24 21:24 <Maggi Jerez PA-C - Last Filed: 09/25/24 19:52> Vital Signs Temperature 97.6 F 09/25/24 11:28 Pulse Rate 89 09/25/24 11:28 Respiratory Rate 16 09/25/24 11:28 Blood Pressure 172/91 H 09/25/24 11:28 Pulse Oximetry 97 09/25/24 11:28 Temperature 97.2 F L 09/26/24 05:21 Pulse Rate 86 09/26/24 05:21 Respiratory Rate 13 09/26/24 05:21 Blood Pressure 145/99 H 09/26/24 05:21 Pulse Oximetry 96 09/26/24 05:21 Oxygen Delivery Room Air 09/25/24 21:24 <Rio Ortega MD - Last Filed: 09/25/24 22:52> MDM - Extremity Injury (Upper) MDM Narrative Medical decision making narrative: 54-year-old male presents to the emergency department after cat bite that occurred yesterday. Patient was attempting to help a injured feral cat and was bitten. He was seen in our ED and prescribed Augmentin but unfortunately has not picked this up from the pharmacy. In the interim, patient has developed cellulitis that is rapidly progressed proximally up his arm. Vitals with elevated blood pressure which has since improved. He is afebrile nontoxic appearing. Exam is significant for the above. He is neurovascularly intact. There is no palpable fluctuance or foreign bodies, no active drainage. Exam is consistent with cellulitis and lymphangitis. No palpable lymphadenopathy. Patient is inquiring about rabies vaccination and immunoglobulin. I had a long discussion with him on risk versus benefits. Ultimately he has contacted his PCP and has been advised to move forward with rabies post exposure prophylaxis and is requesting this. IVIG and vaccine provided in the ED. His Tdap is up-to-date. Lab work with leukocytosis of 13.7, ESR 24, CRP of 2.6. Patient was started on Unasyn. I did offer to obtain an x-ray to evaluate for underlying fracture and foreign body, however patient declined. Given rapidly progressing cellulitis and lymphangitis, recommend admission for IV antibiotics. Patient is amenable to this. Discussed with hospitalist Shanthi DOYLE, who agrees to admission. <Maggi Jerez PA-C - Last Filed: 09/25/24 19:52> Lab Data Result diagrams: 09/25/24 13:59 09/25/24 13:59 <Zina Stanton PA-C - Last Filed: 09/26/24 14:41> Labs: Lab Results 09/25/24 Range/Units 13:59 WBC 13.7 H (4.5-10.0) K/mm3 RBC 5.92 (4.6-6.20) M/mm3 Hgb 17.3 (14.0-18.0) g/dL Hct 50.0 (42.0-52.0) % MCV 84.5 (80-100) fl MCH 29.2 (26-34) pg MCHC 34.6 (32-36) g/dl RDW 12.7 (11.5-14.5) % Plt Count 274 (150-375) k/mm3 MPV 9.7 (7.4-10.4) fl Immature Gran % (Auto) 0.3 (0-0.5) % Neut % (Auto) 76.7 H (45.5-73.1) % Lymph % (Auto) 13.3 L (18.3-44.2) % [place] % (Auto) 8.7 H (2.6-8.5) % Eos % (Auto) 0.6 (0-4.4) % Baso % (Auto) 0.4 (0.2-1.2) % Lymph # (Auto) 1.83 (0.9-3.2) K/mm3 [place] # (Auto) 1.2 H (0.1-0.6) K/mm3 Eos # (Auto) 0.1 (0-0.3) K/mm3 Baso # (Auto) 0.1 (0.0-0.1) K/mm3 Abs Immat Gran (auto) 0.04 H (0.00-0.031) K/mm3 Absolute Neuts (auto) 10.5 H (1.3-6.7) K/mm3 Absolute Nucleated RBC 0.000 (0.0-0.012) K/mm3 Nucleated RBC % 0.0 (0.0-0.2) % ESR 24 H (0-20) mm/hr Sodium 136 L (137-145) mmol/L Potassium 3.8 (3.4-5.0) mmol/L Chloride 99 (98-107) mmol/L Carbon Dioxide 24 (22-30) mmol/L Anion Gap 13 H (4-12) mmol/L BUN 11 D (9-20) mg/dL Creatinine 0.88 (0.7-1.3) mg/dL Estim Creat Clear Calc 111 ml/min Estimated GFR > 60 (59 - ) Glucose 100 (65-110) mg/dL Lactic Acid 1.5 (0.7-2.0) mmol/L Calcium 9.0 (8.4-10.2) mg/dL C-Reactive Protein 2.6 H (<1.0) mg/dL <Zina L. Stanton, PA-C - Last Filed: 09/26/24 14:41> Lab Results 09/25/24 Range/Units 13:59 WBC 13.7 H (4.5-10.0) K/mm3 RBC 5.92 (4.6-6.20) M/mm3 Hgb 17.3 (14.0-18.0) g/dL Hct 50.0 (42.0-52.0) % MCV 84.5 (80-100) fl MCH 29.2 (26-34) pg MCHC 34.6 (32-36) g/dl RDW 12.7 (11.5-14.5) % Plt Count 274 (150-375) k/mm3 MPV 9.7 (7.4-10.4) fl Immature Gran % (Auto) 0.3 (0-0.5) % Neut % (Auto) 76.7 H (45.5-73.1) % Lymph % (Auto) 13.3 L (18.3-44.2) % [place] % (Auto) 8.7 H (2.6-8.5) % Eos % (Auto) 0.6 (0-4.4) % Baso % (Auto) 0.4 (0.2-1.2) % Lymph # (Auto) 1.83 (0.9-3.2) K/mm3 [place] # (Auto) 1.2 H (0.1-0.6) K/mm3 Eos # (Auto) 0.1 (0-0.3) K/mm3 Baso # (Auto) 0.1 (0.0-0.1) K/mm3 Abs Immat Gran (auto) 0.04 H (0.00-0.031) K/mm3 Absolute Neuts (auto) 10.5 H (1.3-6.7) K/mm3 Absolute Nucleated RBC 0.000 (0.0-0.012) K/mm3 Nucleated RBC % 0.0 (0.0-0.2) % ESR 24 H (0-20) mm/hr Sodium 136 L (137-145) mmol/L Potassium 3.8 (3.4-5.0) mmol/L Chloride 99 (98-107) mmol/L Carbon Dioxide 24 (22-30) mmol/L Anion Gap 13 H (4-12) mmol/L BUN 11 D (9-20) mg/dL Creatinine 0.88 (0.7-1.3) mg/dL Estim Creat Clear Calc 111 ml/min Estimated GFR > 60 (59 - ) Glucose 100 (65-110) mg/dL Lactic Acid 1.5 (0.7-2.0) mmol/L Calcium 9.0 (8.4-10.2) mg/dL C-Reactive Protein 2.6 H (<1.0) mg/dL <Maggi Jerez PA-C - Last Filed: 09/25/24 19:52> Lab Results 09/25/24 Range/Units 13:59 WBC 13.7 H (4.5-10.0) K/mm3 RBC 5.92 (4.6-6.20) M/mm3 Hgb 17.3 (14.0-18.0) g/dL Hct 50.0 (42.0-52.0) % MCV 84.5 (80-100) fl MCH 29.2 (26-34) pg MCHC 34.6 (32-36) g/dl RDW 12.7 (11.5-14.5) % Plt Count 274 (150-375) k/mm3 MPV 9.7 (7.4-10.4) fl Immature Gran % (Auto) 0.3 (0-0.5) % Neut % (Auto) 76.7 H (45.5-73.1) % Lymph % (Auto) 13.3 L (18.3-44.2) % [place] % (Auto) 8.7 H (2.6-8.5) % Eos % (Auto) 0.6 (0-4.4) % Baso % (Auto) 0.4 (0.2-1.2) % Lymph # (Auto) 1.83 (0.9-3.2) K/mm3 [place] # (Auto) 1.2 H (0.1-0.6) K/mm3 Eos # (Auto) 0.1 (0-0.3) K/mm3 Baso # (Auto) 0.1 (0.0-0.1) K/mm3 Abs Immat Gran (auto) 0.04 H (0.00-0.031) K/mm3 Absolute Neuts (auto) 10.5 H (1.3-6.7) K/mm3 Absolute Nucleated RBC 0.000 (0.0-0.012) K/mm3 Nucleated RBC % 0.0 (0.0-0.2) % ESR 24 H (0-20) mm/hr Sodium 136 L (137-145) mmol/L Potassium 3.8 (3.4-5.0) mmol/L Chloride 99 (98-107) mmol/L Carbon Dioxide 24 (22-30) mmol/L Anion Gap 13 H (4-12) mmol/L BUN 11 D (9-20) mg/dL Creatinine 0.88 (0.7-1.3) mg/dL Estim Creat Clear Calc 111 ml/min Estimated GFR > 60 (59 - ) Glucose 100 (65-110) mg/dL Lactic Acid 1.5 (0.7-2.0) mmol/L Calcium 9.0 (8.4-10.2) mg/dL C-Reactive Protein 2.6 H (<1.0) mg/dL <Rio Ortega MD - Last Filed: 09/25/24 22:52> Critical Care Time Critical Care Time Critical Care Time: No <Zina Stanton PA-C - Last Filed: 09/26/24 14:41> Discharge Plan Discharge Clinical Impression: Cat bite Qualifiers: Encounter type: subsequent encounter Qualified Code(s): W55.01XD - Bitten by cat, subsequent encounter Cellulitis Qualifiers: Site of cellulitis: extremity Site of cellulitis of extremity: upper extremity Laterality: left Qualified Code(s): L03.114 - Cellulitis of left upper limb <Zina Stanton PA-C - Last Filed: 09/26/24 14:41> Patient Disposition: Still a Patient <Zina Stanton PA-C - Last Filed: 09/26/24 14:41> Condition: Stable <Zina Stanton PA-C - Last Filed: 09/26/24 14:41>
[2024-09-25 14:07] LABS: Basophils Absolute Auto 0.1 K/mm3 (0.0-0.1); Basophils Percent Auto 0.4 % (0.2-1.2); Eosinophils Absolute Auto 0.1 K/mm3 (0-0.3); Eosinophils Percent Auto 0.6 % (0-4.4); Hemoglobin 17.3 g/dL (14.0-18.0); Immature Granulocyte Absolute 0.04 K/mm3 (0.00-0.031); Immature Granulocyte Percent A 0.3 % (0-0.5); Lymphocytes Absolute Auto 1.83 K/mm3 (0.9-3.2); Lymphocytes Percent Auto 13.3 % (18.3-44.2); Mean Corpuscular HGB Conc 34.6 g/dl (32-36); Mean Corpuscular Hemoglobin 29.2 pg (26-34); Mean Corpuscular Volume 84.5 fl (80-100); Mean Platelet Volume 9.7 fl (7.4-10.4); Monocytes Absolute Auto 1.2 K/mm3 (0.1-0.6); Monocytes Percent Auto 8.7 % (2.6-8.5); Neutrophils Absolute Auto 10.5 K/mm3 (1.3-6.7); Neutrophils Percent Auto 76.7 % (45.5-73.1); Platelet Count Result 274 k/mm3 (150-375); Red Blood Count 5.92 M/mm3 (4.6-6.20); Red Cell Distribution Width 12.7 % (11.5-14.5); White Blood Count 13.7 K/mm3 (4.5-10.0)
[2024-09-25 14:24] LABS: Lactic Acid Reflex 1.5 mmol/L (0.7-2.0)
[2024-09-25 14:28] LABS: Anion Gap 13 mmol/L (4-12); Blood Urea Nitrogen 11 mg/dL (9-20); CRP 2.6 mg/dL (<1.0); Carbon Dioxide 24 mmol/L (22-30); Chloride 99 mmol/L (98-107); Estimated CRCL calculation 111 ml/min; Estimated Glomerular Filt Rate > 60; Glucose 100 mg/dL (65-110); Potassium 3.8 mmol/L (3.4-5.0); Sodium 136 mmol/L (137-145)
[2024-09-25 15:27] LABS: Erythrocyte Sedimentation Rate 24 mm/hr (0-20)
[2024-09-25 16:00] VITALS: BP 149/68; PULSE 86; RESP 16; TEMP 36.8; O2SAT 100
[2024-09-25] MEDS: AMPICILLIN SULB 3 GM/NS 100 ML 3 GM/100 ML VIAL IVPB ×2 (17:46→23:53)
[2024-09-25 18:19] VITALS: BP 147/92; PULSE 85; RESP 16; TEMP 37; O2SAT 100
--- NOTE | 2024-09-25 19:05 | P.HP_ITS ---
H&P: HPI History of Present Illness Date/Time: 09/25/24 19:05 Chief Complaint: Cat bite. Narrative: This is a 54-year-old male with hypertension who presented to the emergency department via private vehicle for evaluation of a cat bite on the left hand. The patient provides the following history. He was been by a feral cat last night and was given a prescription for Augmentin after being seen in the ED. Over the course of the day his hand has become increasingly red and painful with redness that is now streaking up his forearm. He denies fever, sweats, nausea, vomiting, paresthesias, and the inability to make a fist. In the ED: He was afebrile on arrival with stable vital signs. Labs are significant for WBC count of 13.7, ESR 24, CRP 2.6, lactic acid 1.5. He was started on Unasyn and he is being admitted in this setting for further IV antibiotics. Of note, he initially declined rabies vaccination but has changed his mind and he received immunoglobulin injection and his 1st rabies vaccine while in the ED. Review of Systems Review of Systems: 12 systems were reviewed and are negativ e except for as per HPI. [facility] Past Medical History Medical History (Updated 09/25/24 @ 22:36 by Dorys Walls PA-C) CELY (obstructive sleep apnea) CPAP was recalled, no longer using Herniated disc, cervical C3-7 Hypertension Chondromalacia patellae of right knee Medial meniscus, posterior horn derangement Surgical History Surgical History (Updated 09/25/24 @ 22:33 by Dorys Walls PA-C) History of arthroscopy of left knee 1989 and March 2021 History of arthroscopy of right knee 07/16/2023 and 04/24/2024 Social History Social History (Updated 09/25/24 @ 22:34 by Dorys Walls PA-C) Social History: Surrogate medical decision maker: Mattie Hinojosa, father. Code status: Full code. Smoking packs per day: 0.25 Smoking cigarettes per day: 5.0 Years smoked: 6 Smoking pack-years: 1.50 Smoking status: Never smoker Tobacco type: cigarettes Second hand tobacco smoke exposure: Yes Smoking end date: 08/26/01 Alcohol intake: never Drinks per week: 1 Alcohol use details: Rare alcohol use in moderation and on special occasions. Substance use: never Substance use type: does not use Last use: 2006 Do You Feel Safe in your Home?: Yes Lack of Transportation: No Lack of Food: Never True Current Housing: I Have Housing Concerned About Future Housing: No Difficulty Paying Gas/Electric Bills: No Difficulty Paying for Meds: No Currently Unemployed: No Education: Bachelor's Degree Difficulty w/ Childcare or Family Care: No Living arrangements: alone Additional living arrangements comments: Lives in [place]. 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 Spiritual care concerns: No Meds Home Medications and Allergies Home Medications ?Medication ?Instructions ?Recorded ?Confirmed ?Type hydrochlorothiazide 12.5 mg tablet 12.5 mg PO DAILY 12/18/21 09/14/24 History ibuprofen 200 mg capsule (Advil 200 mg PO Q6H PRN Pain 12/18/21 09/14/24 History Liqui-Gel) lisinopril 10 mg tablet 10 mg PO DAILY 12/18/21 09/14/24 History cetirizine 10 mg tablet (Zyrtec) 10 mg PO DAILY 03/28/22 09/14/24 History multivitamin with minerals (Men's 1 tablet PO DAILY 03/28/22 09/14/24 History One Daily tablet) ergocalciferol (vitamin D2) 1,250 50,000 mcg PO WEEKLY 07/11/23 09/14/24 History mcg (50,000 unit) capsule amoxicillin 875 mg-potassium 1 tablet PO Q12H #10 tabs 09/25/24 Rx clavulanate 125 mg tablet Allergies Allergy/AdvReac Type Severity Reaction Status Date / Time No Known Allergies Allergy Verified 09/24/24 20:57 Vital Signs Vital Signs - 24 hr 09/25/24 11:28 09/25/24 16:00 09/25/24 18:19 Temperature 97.6 F 98.3 F 98.6 F Pulse Rate 89 86 85 Respiratory Rate 16 16 16 Blood Pressure 172/91 H 149/68 H 147/92 H Pulse Oximetry 97 100 100 Exam Narrative: General: Well-developed, nontoxic-appearing male sitting in a chair at the side in bed in no distress. Weight: 110.5 kg. BMI: 32.1. HEENT: PERRL, EOMI. Sclera anicteric. Oral mucosa moist. Neck: Supple. Respiratory: Lungs are clear to auscultation bilaterally. Cardiovascular: Regular rate and rhythm with S1-S2. Gastrointestinal: Abdomen is soft, nontender, and nondistended with positive bowel sounds. Skin: Warm and dry. There is erythema and swelling of the left thenar eminence around to the radial aspect of the left thumb with warmth and tenderness to palpation. There are a total of 4 puncture wounds noted. Lymphangitic streaking noted up the forearm and just above the medial elbow. Sensation is intact. Extremities: No cyanosis, clubbing, or edema. Radial and pedal pulses intact. Neurological: Alert. Cranial nerves 2-12 are grossly intact. No gross focal deficits to casual conversation. Psychiatric: Pleasant and cooperative with normal mood and affect. Judgment and insight intact. H&P: Results Labs Labs: Short CBC 09/25/24 Range/Units 13:59 WBC 13.7 H (4.5-10.0) K/mm3 Hgb 17.3 (14.0-18.0) g/dL Hct 50.0 (42.0-52.0) % Plt Count 274 (150-375) k/mm3 [facility] 09/25/24 13:59 Sodium 136 L Potassium 3.8 Chloride 99 Carbon Dioxide 24 BUN 11 D Creatinine 0.88 Glucose 100 Calcium 9.0 Assessment and Plan Assessment and plan (1) Cellulitis of left hand: Code(s): L03.114 - Cellulitis of left upper limb Status: Acute (2) Cat bite: Qualifiers: Encounter type: subsequent encounter Qualified Code(s): W55.01XD - Bitten by cat, subsequent encounter Code(s): W55.01XA - Bitten by cat, initial encounter Status: Acute (3) Hypertension: Code(s): I10 - Essential (primary) hypertension Status: Acute Plan The patient presented to the emergency department for worsening pain and swelling in the left hand after being bitten by a feral cat yesterday as detailed in HPI. Labs, imaging, EKG, and all reports were personally reviewed. He has been started on Unasyn 3 g Q 6 hours. He was encouraged to elevate the affected extremity as often as possible. Analgesics are available. Continue serial exams; at this time there is no area of fluctuance or concerns for abscess for tendon involvement. He received immunoglobulin and his 1st rabies vaccine in the ED and will need to complete his series. I believe the Infectious Disease nurse was consulted by the ED. Blood pressures have been running a bit high and will be monitored. His home medications will be reviewed and resumed as appropriate. Findings and treatment plan were discussed with the patient. Questions were solicited and answered to satisfaction. The patient's medical management will be taken over by the hospitalist team in a.m. Quality VTE Prophylaxis VTE prophylaxis: mechanical ordered If No VTE Prophylaxis Answer both mechanical and pharmacologic: Reason no pharmacologic proph: low risk/not indicated The patient has been admitted under observation status. Hospitalist MIPS Advance Care Plan I have confirmed that the patient's Advanced Care Plan is present, code status is documented, or surrogate decision maker is listed in patient medical record.: Yes Medication Reconciliation The patient is not eligible for med reconciliation; the patient is in a emergent medical situation where delaying treatment would jeopardize the patients health.: Yes
[2024-09-25] MEDS: RABIES VACCINE (RABAVERT) 2.5 UNITS VIAL IM (20:27)
[2024-09-25] MEDS: RABIES IMMUNE GLOBULIN 2100 UNITS INFILTRATE (20:28)
[2024-09-25 21:17] VITALS: BMI 32.1
--- NOTE | 2024-09-25 21:18 | ADMGEN ---
This patient, Bubba Overton, was admitted to [facility] Surg Room 325-02. Patient/family oriented to hospital policies and general routines including ID bracelet, bed and alarms, visiting hours, pain management, procedures, bathroom and other care routines, personal items, smoking policy, room service/diet, and visiting hours. Information on how to activate the Rapid Response Team has been discussed. Patient/Family are encouraged to report perceived risks to care and to ask questions if they do not understand what they are told or what they should do.
[2024-09-25 21:24] VITALS: PULSE 85; RESP 16; O2SAT 100
[2024-09-25 21:51] VITALS: BP 153/97; PULSE 90; RESP 16; TEMP 36.3; O2SAT 98
[2024-09-25] MEDS: LORATADINE 10 MG TABLET PO (23:53)
[2024-09-26 05:21] VITALS: BP 145/99; PULSE 86; RESP 13; TEMP 36.2; O2SAT 96
[2024-09-26] MEDS: AMPICILLIN SULB 3 GM/NS 100 ML 3 GM/100 ML VIAL IVPB ×4 (06:01→23:44)
[2024-09-26] MEDS: hydroCHLOROthiazide 12.5 MG CAPSULE PO (08:13)
[2024-09-26] MEDS: LORATADINE 10 MG TABLET PO (08:13)
[2024-09-26] MEDS: THERAPEUTIC MULTIVITAMINS/MINERALS TAB (*BKC) 1 TABLET PO (08:13)
[2024-09-26] MEDS: lisinopriL 20 MG TABLET PO (08:13)
[2024-09-26 14:00] VITALS: BP 144/92; PULSE 98; RESP 16; TEMP 36.6; O2SAT 95
--- NOTE | 2024-09-26 17:12 | PM.IMPN ---
Progress Note: A&P Assessment and Plan (1) Cellulitis of left hand: Code(s): L03.114 - Cellulitis of left upper limb Status: Acute (2) Cat bite: Qualifiers: Encounter type: subsequent encounter Qualified Code(s): W55.01XD - Bitten by cat, subsequent encounter Code(s): W55.01XA - Bitten by cat, initial encounter Status: Acute (3) Hypertension: Code(s): I10 - Essential (primary) hypertension Status: Acute Plan The patient presented to the emergency department for worsening pain and swelling in the left hand after being bitten by a feral cat yesterday as detailed in HPI. Labs, imaging, EKG, and all reports were personally reviewed. He has been started on Unasyn 3 g Q 6 hours. He was encouraged to elevate the affected extremity as often as possible. Analgesics are available. Continue serial exams; at this time there is no area of fluctuance or concerns for abscess for tendon involvement. He received immunoglobulin and his 1st rabies vaccine in the ED and will need to complete his series. I believe the Infectious Disease nurse was consulted by the ED. Blood pressures have been running a bit high and will be monitored. Continue Unasyn. Subjective Date/time seen: 09/26/24 17:12 Interval history: The patient had a cat bite. The patient reported he was holding the stray cat, and unfortunately, it bit him and ran away to the [facility] [place], which racco[place] inhabit. He came to the ED and was prescribed oral antibiotics, but unfortunately, before picking them up from the pharmacy the next day, his wound got worse, and he returned back to the ED. He received rabies vaccine Review of Systems Review of Systems: 12 systems were reviewed and are negative except for as per HPI. Exam Narrative: General: Well-developed, nontoxic-appearing male sitting in a chair at the side in bed in no distress. Weight: 110.5 kg. BMI: 32.1. HEENT: PERRL, EOMI. Sclera anicteric. Oral mucosa moist. Neck: Supple. Respiratory: Lungs are clear to auscultation bilaterally. Cardiovascular: Regular rate and rhythm with S1-S2. Gastrointestinal: Abdomen is soft, nontender, and nondistended with positive bowel sounds. Skin: Warm and dry. There is erythema and swelling of the left thenar eminence around to the radial aspect of the left thumb with warmth and tenderness to palpation. There are a total of 4 puncture wounds noted. Lymphangitic streaking noted up the forearm and just above the medial elbow. Sensation is intact. Extremities: No cyanosis, clubbing, or edema. Radial and pedal pulses intact. Neurological: Alert. Cranial nerves 2-12 are grossly intact. No gross focal deficits to casual conversation. Psychiatric: Pleasant and cooperative with normal mood and affect. Judgment and insight intact. Objective Data Vital Signs Vital Signs: Vital Signs - 24 hr 09/25/24 18:19 09/25/24 21:24 09/25/24 21:51 Temperature 98.6 F 97.4 F L Pulse Rate 85 85 90 Respiratory Rate 16 16 16 Blood Pressure 147/92 H 153/97 H Pulse Oximetry 100 100 98 Oxygen Delivery Room Air 09/26/24 05:21 Temperature 97.2 F L Pulse Rate 86 Respiratory Rate 13 Blood Pressure 145/99 H Pulse Oximetry 96 Oxygen Delivery Intake/Output Intake/Output: Intake & Output 09/23/24 09/24/24 09/25/24 09/26/24 23:59 23:59 23:59 23:59 Intake Total 100 1080 Balance 100 1080 Meds/Results Medications: Active Medications Generic Name Dose Route Start Last Admin Trade Name Freq PRN Reason Stop Dose Admin Acetaminophen 650 mg 09/25/24 22:38 Acetaminophen 325 Mg Tablet PO Q6H PRN Mild Pain (1-3) or Fever Hydrocodone Bitart/Acetaminophen 1 tab 09/25/24 22:38 Hydrocodone/Acetaminophen (*Crx) 5-325 Mg Tablet PO Q6H PRN Pain Rated 4-6 Amlodipine Besylate 5 mg 09/26/24 17:00 Amlodipine Besylate 5 Mg Tablet PO DAILY@1700 GUILLERMO Hydrochlorothiazide 12.5 mg 09/26/24 09:00 09/26/24 08:13 Hydrochlorothiazide 12.5 Mg Capsule PO 12.5 mg DAILY [facility] Administration Ampicillin Sodium/Sulbactam Sodium 3 gm in 100 mls @ 200 mls/hr 09/26/24 00:00 09/26/24 12:13 Unasyn 3 Gm/Ns 100 Ml IVPB Infused Q6H [facility] Infusion Lisinopril 20 mg 09/26/24 09:00 09/26/24 08:13 Lisinopril 20 Mg Tablet PO 20 mg DAILY GUILLERMO Administration Loratadine 10 mg 09/25/24 09:00 09/26/24 08:13 Loratadine 10 Mg Tablet PO 10 mg QAM GUILLERMO Administration Loratadine 10 mg 09/26/24 09:00 09/26/24 08:13 Loratadine 10 Mg Tablet PO Not Given QAM GUILLERMO Multivitamins/Calcium 1 tablet 09/26/24 09:00 09/26/24 08:13 Therapeutic Multivitamins/Minerals Tab (*Bkc) PO 1 tablet DAILY GUILLERMO Administration Quality VTE Prophylaxis VTE prophylaxis: mechanical ordered Hospitalist MIPS Advance Care Plan I have confirmed that the patient's Advanced Care Plan is present, code status is documented, or surrogate decision maker is listed in patient medical record.: Yes Medication Reconciliation I have utilized all available resources to obtain, update and review the patients current medications (includes all prescriptions, OTC, herbals, cannabis, and nutritional supplements).: Yes
[2024-09-26] MEDS: amLODIPine BESYLATE 5 MG TABLET PO (17:31)
[2024-09-26 20:00] VITALS: PULSE 98; RESP 16; O2SAT 95
[2024-09-26 22:00] VITALS: BP 132/84; PULSE 80; RESP 14; TEMP 36.2; O2SAT 96
[2024-09-27] MEDS: AMPICILLIN SULB 3 GM/NS 100 ML 3 GM/100 ML VIAL IVPB (05:27)
[2024-09-27 06:00] VITALS: BP 125/85; PULSE 74; RESP 14; TEMP 36.1; O2SAT 96
[2024-09-27 08:00] LABS: Hematocrit 47.1 % (42.0-52.0); Mean Corpuscular Hemoglobin 28.6 pg (26-34); Mean Corpuscular Volume 84.3 fl (80-100); Mean Platelet Volume 9.6 fl (7.4-10.4); Platelet Count Result 244 k/mm3 (150-375); Red Blood Count 5.59 M/mm3 (4.6-6.20); Red Cell Distribution Width 12.8 % (11.5-14.5); White Blood Count 5.9 K/mm3 (4.5-10.0)
[2024-09-27 08:12] LABS: Alanine Aminotransferase 24 U/L (6-50); Albumin Level 3.9 g/dL (3.5-5.1); Alkaline Phosphatase 35 U/L (38-126); Anion Gap 8 mmol/L (4-12); Aspartate Amino Transferase 19 U/L (17-59); Bilirubin,Total 0.8 mg/dL (0.2-1.3); Blood Urea Nitrogen 9 mg/dL (9-20); Calcium 8.3 mg/dL (8.4-10.2); Carbon Dioxide 27 mmol/L (22-30); Chloride 102 mmol/L (98-107); Estimated CRCL calculation 120 ml/min; Estimated Glomerular Filt Rate > 60; Glucose 109 mg/dL (65-110); Potassium 3.9 mmol/L (3.4-5.0); Sodium 137 mmol/L (137-145)
[2024-09-27] MEDS: lisinopriL 20 MG TABLET PO (09:40)
[2024-09-27] MEDS: hydroCHLOROthiazide 12.5 MG CAPSULE PO (09:40)
[2024-09-27] MEDS: THERAPEUTIC MULTIVITAMINS/MINERALS TAB (*BKC) 1 TABLET PO (09:41)
[2024-09-27] MEDS: LORATADINE 10 MG TABLET PO (09:41)
--- NOTE | 2024-09-27 11:23 | PM.DS ---
DS: Admitting Diagnosis Discharge Date 09/27/2024 Admitting Diagnosis Cat bite DS: Discharge Diagnosis Discharge Diagnosis (1) Cellulitis of left hand: Code(s): L03.114 - Cellulitis of left upper limb Status: Acute (2) Cat bite: Qualifiers: Encounter type: subsequent encounter Qualified Code(s): W55.01XD - Bitten by cat, subsequent encounter Code(s): W55.01XA - Bitten by cat, initial encounter Status: Acute (3) Hypertension: Code(s): I10 - Essential (primary) hypertension Status: Acute DS: Summary Hospital Course Hospital Course: This is a 54-year-old male with hypertension who presented to the emergency department via private vehicle for evaluation of a cat bite on the left hand. The patient provides the following history. He was been by a feral cat last night and was given a prescription for Augmentin after being seen in the ED. Over the course of the day his hand has become increasingly red and painful with redness that is now streaking up his forearm. He denies fever, sweats, nausea, vomiting, paresthesias, and the inability to make a fist. In the ED: He was afebrile on arrival with stable vital signs. Labs are significant for WBC count of 13.7, ESR 24, CRP 2.6, lactic acid 1.5. He was started on Unasyn and he is being admitted in this setting for further IV antibiotics. Of note, he initially declined rabies vaccination but has changed his mind and he received immunoglobulin injection and his 1st rabies vaccine while in the ED. Patient received Unasyn during the hospitalization. No signs of any neurological compromise. Patient is able to flex , oppose, extend his fingers. No evidence of any neurological compromise on wrist flexion or extension. No evidence of any redness, swelling or warmth or tenderness. Please discharged with following instructions: Please take TMP-SMX and Metronidazole for 10 days. Please return to ER if any signs of redness, swelling, or fever Please follow up PCP within a week upon discharge Status at Discharge Cognitive/behavioral status at discharge: Stable Time Spent with Patient Time attestation: Total time spent providing and/or coordinating discharge services:45 minutes Exam Narrative: General: Well-developed, nontoxic-appearing male sitting in a chair at the side in bed in no distress. Weight: 110.5 kg. BMI: 32.1. HEENT: PERRL, EOMI. Sclera anicteric. Oral mucosa moist. Neck: Supple. Respiratory: Lungs are clear to auscultation bilaterally. Cardiovascular: Regular rate and rhythm with S1-S2. Gastrointestinal: Abdomen is soft, nontender, and nondistended with positive bowel sounds. Skin: Warm and dry. There is erythema and swelling of the left thenar eminence around to the radial aspect of the left thumb with warmth and tenderness to palpation. There are a total of 4 puncture wounds noted. Lymphangitic streaking noted up the forearm and just above the medial elbow. Sensation is intact. Extremities: No cyanosis, clubbing, or edema. Radial and pedal pulses intact. Neurological: Alert. Cranial nerves 2-12 are grossly intact. No gross focal deficits to casual conversation. Psychiatric: Pleasant and cooperative with normal mood and affect. Judgment and insight intact. DS: Data Data Completed and Pending Labs on day of discharge: Labs from last 24 hours 09/27/24 07:54 WBC 5.9 RBC 5.59 Hgb 16.0 Hct 47.1 MCV 84.3 MCH 28.6 MCHC 34.0 RDW 12.8 Plt Count 244 MPV 9.6 Sodium 137 Potassium 3.9 Chloride 102 Carbon Dioxide 27 Anion Gap 8 BUN 9 Creatinine 0.81 Estim Creat Clear Calc 120 Estimated GFR > 60 Glucose 109 Calcium 8.3 L Total Bilirubin 0.8 AST 19 ALT 24 Alkaline Phosphatase 35 L Total Protein 7.0 Albumin 3.9 Preliminary micro results at discharge 09/25/24 16:49 Blood Culture - Preliminary Blood 09/25/24 13:59 Blood Culture - Preliminary Blood Discharge Plan Discharge Attending physician on discharge: Bin Thayer Discharging Clinician: Bin Thayer Anticipated Discharge Date/Time: 09/27/24 10:49 Patient Disposition: Home, Self-Care Activity: as tolerated Diet: regular Wound Care Instructions: follow printed instructions, keep dressing dry, change dressing daily and other - see discharge instructions Discharge Instructions: Please take TMP-SMX and Metronidazole for 10 days. Please return to ER if any signs of redness, swelling, or fever Please follow up PCP within a week upon discharge Change dressing daily or as needed when soiled/ wet. Do not soak in tub, hottubs. Call 911 or go to ER with any fever greater than 101, any sudden CP, SOB. Patient Instructions: Antibiotic Form Patient Language: Arabic Stand Alone Forms: General Discharge Information Follow-up/Referrals: JACKIE,MANUELITO Ro M.D. [Primary Care Provider] - Discharge Medications: New metronidazole 500 mg tablet 500 mg PO Q8H 10 Days Qty: 30 0RF sulfamethoxazole-trimethoprim 800-160 mg tablet 1 tablet PO Q12H 10 Days Qty: 20 0RF Continued hydrochlorothiazide 12.5 mg tablet 12.5 mg PO DAILY ibuprofen [Advil Liqui-Gel] 200 mg capsule 200 mg PO Q6H PRN (Reason: Pain) cetirizine [Zyrtec] 10 mg Tablet 10 mg PO DAILY Men's One Daily Tablet 1 tablet PO DAILY lisinopril 20 mg tablet 20 mg PO DAILY amlodipine 5 mg tablet 5 mg PO DAILY@1700 ergocalciferol (vitamin D2) 1,250 mcg (50,000 unit) capsule 50,000 mcg PO WEEKLY Rx Instructions: TAKES ON SATURDAY Discontinued lisinopril 10 mg tablet 10 mg PO DAILY hydrochlorothiazide 25 mg tablet 12.5 mg PO DAILY Date of admission: 09/25/24 19:03 Primary Care Provider: MANUELITO KLINE Admitting Provider: Bin Thayer Attending physician on admission: Bin Thayer Condition: Stable
== END 2024-09-27 12:00 | disposition home or self-care (01) ==
LOC: ANHED 19:02 → ANH3MEDSUR 20:12
PROVIDERS: Physician Assistant; Admitting Provider General Practice; Emergency Provider Physician Assistant; PCP Internal Medicine; Visit Provider General Practice
DX: S61.452A Open bite of left hand, initial encounter (principal); L03.114 Cellulitis of left upper limb; W55.01XA Bitten by cat, initial encounter; Z23 Encounter for immunization; Z29.14 Encounter for prophylactic rabies immune globulin; I10 Essential (primary) hypertension; G47.33 Obstructive sleep apnea (adult) (pediatric); F17.210 Nicotine dependence, cigarettes, uncomplicated; Z79.899 Other long term (current) drug therapy
CPT/HCPCS: 36415; 80048; 80053; 83605; 85025; 85027; 85652; 86140; 87040; 90375; 90471; 90675; 96365; 99285; A9270; G0378; J0295

== ENCOUNTER 2024-10-02 07:08 | Outpatient (RCR) | payer BC, SELFPAY ==
--- NOTE | 2024-10-02 09:11 | PC.NURSE ---
AMBULATORY TO LAB DRAW STATION FOR 3RD RABIES VACCINE. GAIT STEADY. DENIES SYMPTOMS OF REACTION - NAUSEA, FATIGUE, RASH, ITCHING. STATES WOUNDS ARE NOT PAINFUL. WOUNDS WITHOUT SIGNS OF INFECTION - NO REDNESS, NO DRAINAGE, NO TENDERNESS, NO WARMTH. MOVING HAND NORMALLY. TO RETURN IN 1 WEEK FOR LAST INJECTION - VOICES UNDERSTANDING. HAS PHONE NUMER TO CALL IF QUESTIONS OR CONCERNS.
--- NOTE | 2024-10-09 11:52 | PC.NURSE ---
AMBULATORY TO DRAW STATION FOR 4TH RABIES VACCINE. STATES IS FEELING WELL. WOUNDS WITHOUT SIGN OF ONGOING INFECTION.
== END 2024-12-27 23:59 | disposition home or self-care (01) ==
LOC: ANHLAB 07:08
PROVIDERS: PCP Internal Medicine; Visit Provider Emergency Medicine
DX: Z20.3 Contact with and (suspected) exposure to rabies (principal); Z29.14 Encounter for prophylactic rabies immune globulin
CPT/HCPCS: 90471; 90675

== ENCOUNTER 2025-06-07 10:53 | Emergency (ER) | payer BC, SELFPAY ==
--- NOTE | ~2025-06-07 | XR_ITS ---
Examination: XR chest 2V Clinical History: chest pain x5 DAYS, shoulder blade pain Comparison: 02/26/2024 Technique: PA and Lateral Findings: Cardiomediastinal silhouette normal size and configuration. Lungs clear. No acute bony abnormality. IMPRESSION: 1. No acute cardiopulmonary findings. Reviewed, dictated and finalized at location R.
--- NOTE | 2025-06-07 10:54 | ECG_ITS ---
Test Date: 2025-06-07 10:58:24 Measurements Intervals [place] Rate: 107 P: 54 AK: 156 QRS: 56 QRSD: 101 T: -12 QT: 307 QTc: 410 Interpretive Statements SINUS TACHYCARDIA NONSPECIFIC ST-T WAVE ABNORMALITY- INFERIOR LEADS BASELINE ARTIFACT- II, III, AVR, AVL, AVF, V1-V2, V4-V6 ABNORMAL ECG Compared to ECG 02/28/2024 20:10:41 HEART RATE HAS INCREASED Electronically Signed On 06-07-2025 11:34:17 CDT by Seun Langley D.O.
[2025-06-07 11:05] VITALS: BP 145/85; PULSE 102; RESP 16; TEMP 37.1; O2SAT 97
[2025-06-07 11:27] LABS: Hematocrit 49.7 % (42.0-52.0); Hemoglobin 17.4 g/dL (14.0-18.0); Immature Granulocyte Percent A 0.4 % (0-0.5); Lymphocytes Absolute Auto 2.22 K/mm3 (0.9-3.2); Mean Corpuscular HGB Conc 35.0 g/dl (32-36); Mean Corpuscular Hemoglobin 28.8 pg (26-34); Mean Corpuscular Volume 82.1 fl (80-100); Nucleated Red Blood Cells Absolute Auto 0.000 K/mm3 (0.0-0.012); Nucleated Red Blood Cells Perc 0.0 % (0.0-0.2); Platelet Count Result 278 k/mm3 (150-375); Red Blood Count 6.05 M/mm3 (4.6-6.20); White Blood Count 8.2 K/mm3 (4.5-10.0)
[2025-06-07 11:45] LABS: Alanine Aminotransferase 29 U/L (6-50); Albumin Level 4.7 g/dL (3.5-5.1); Alkaline Phosphatase 48 U/L (38-126); Anion Gap 11 mmol/L (4-12); Aspartate Amino Transferase 34 U/L (17-59); Bilirubin,Total 0.9 mg/dL (0.2-1.3); Blood Urea Nitrogen 11 mg/dL (9-20); Calcium 8.9 mg/dL (8.4-10.2); Carbon Dioxide 23 mmol/L (22-30); Chloride 99 mmol/L (98-107); Estimated CRCL calculation 114 ml/min; Estimated Glomerular Filt Rate > 60; Glucose 107 mg/dL (65-110); Lipase 118 U/L (23-300); Potassium 3.7 mmol/L (3.4-5.0); Sodium 133 mmol/L (137-145); Total Protein 8.1 g/dL (6.3-8.2)
[2025-06-07 11:49] LABS: INR 1.0; Prothrombin Time 13.3 Seconds (11.1-14.7)
[2025-06-07 11:50] LABS: Partial Thromboplastin Time 29.1 Seconds (22.3-36.8)
--- NOTE | 2025-06-07 11:51 | PC.NURSE ---
Pt. took 324 of baby aspirin at home this morning.
[2025-06-07 11:52] LABS: Troponin I < 0.012 ng/mL (0.000-0.034)
--- OUTSIDE RECORDS SUMMARY | 2025-06-07 12:05 | XMS_ITS | Clinical Summary ---
Author Organization [facility] Address [address] [place] [address] Care Team Providers Care Weapons Officer [employer] Name Role Phone Fadumo Garay MD Primary [...] MOUTH DAILY 45 tablet 1 4 Active lisinopriL (PRINIVIL,ZEST RIL) 20 mg tablet Take 1 tablet (20 mg total) by mouth 2 (two) times a day before breakfast and dinner 180 tablet 3 4 Active chlorhexidine (PERIDEX) 0.12 % solution RINSE [...] erectile dysfunction 30 tablet 3 4 Active testosterone enanthate, bulk, 100 % powder 0 4 Active budesonide (PULMICORT) 0.5 mg/2 mL nebulizer solutionIndica tions:use with selina med or equivalent rinse kit Administer 2 mL (0.5 mg total) into each nostril 2 (two) times a day Rinse mouth with water after use. Do not swallow. 60 mL 3 5 Active testosterone propionate, bulk, powder 0 5 Active azelastine (ASTELIN) 137 mcg (0.1 %) nasal spray Administer 1 spray into each nostril 2 (two) times a day Use in each nostril as directed 30 mL 3 5 Active fluticasone propionate (FLONASE) 50 mcg/actuation nasal spray SHAKE LIQUID AND USE 1 SPRAY IN EACH NOSTRIL TWICE DAILY 48 g 3 5 Active ergocalciferol (VITAMIN D) 50,000 unit capsule TAKE 1 CAPSULE BY MOUTH 1 TIME A WEEK 12 capsule 5 Active amLODIPine (NORVASC) 5 mg tablet Take 1 tablet (5 mg total) by mouth daily 90 tablet 3 5 05/10/20 26 Active hydroCHLOROthi azide 12.5 mg tablet Take 1 tablet/capsule (12.5 mg total) by mouth daily 90 tablet 3 5 05/10/20 26 Active amLODIPine (NORVASC) 5 mg tablet Take 1 tablet (5 mg total) by mouth daily 90 tablet 4 4 05/10/20 25 Discontin ued(Reord er) hydroCHLOROthi azide 12.5 mg tablet Take 1 tablet (12.5 mg total) by mouth daily 90 tablet 4 4 05/10/20 25 Discontin ued(Reord er) Active Problems Problem Noted Date Diagnosed Date Deviated nasal septum 01/22/2025 Hypertrophy of nasal turbinates 01/22/2025 Cervical myelopathy 07/13/2024 Abnormal hemoglobin 07/13/2024 Chronic [...] filter Assessment & Plan (07/01/2017 1:48 PM POLICE SPECIALIST): Continue use of CPAP machine as previously [...] medications Assessment & Plan (09/17/2018 11:23 AM POLICE SPECIALIST): Patient has BL hypertension with BP as [...] - Medicine will sign off; please call [phone] with questions Assessment & Plan (09/16/2018 3:23 PM POLICE SPECIALIST): Patient has BL hypertension with BP as [...] Medicine will continue to follow; please call [phone] with questions Atopic rhinitis 10/12/2013 Overview (11/29/2016): [...] 11/06/19 Assessment & Plan (08/06/2019 5:33 PM POLICE SPECIALIST): Patient with ongoing shortness of breath after being seen at the urgent care center approximately 5 days ago. He has been using his albuterol inhaler every 4-6 hours with limited relief. Improvement after albuterol nebulized treatment given in right lung aeration. Left lung full breath sounds throughout prior to albuterol treatment I've referred him to [facility] pulmonology at this time for concerns [...] CDT): Patient declined eval in ER at [facility]- discussed risks of fracture and trauma- he verbalized understainding. Acute midline thoracic back pain 02/25/2018 11/19/2018 Assessment & Plan (02/25/2018 4:59 PM CDT): Concern for fracture.- xray BMI 33.0-33.9,adult 03/25/2017 10/12/19 20 Assessment & Plan (08/06/2019 5:30 PM POLICE SPECIALIST): BMI Follow-up includes: education provided. Assessment & Plan (07/01/2017 1:48 PM POLICE SPECIALIST): BMI Follow-up includes:Try to work on diet, [...] Encounters Date Type Department Care Team Description 06/07/2025 Nurse Triage [facility] Medical [facility] Primary Care at [place] [address] [facility] [address], [place] [phone] Fadumo Garay MD 05/31/2025 Telephone [facility] Pre Anesthesia Testing [address] [place] [phone] Lynda Hudson 05/24/2025 Telephone [facility] - [facility] [address] [place] [phone] Huber Fraire MD 04/05/2025 Telephone [facility] Medical [facility] Primary Care at [address], [place] [phone] Fadumo Garay MD 04/05/2025 Telephone [facility] Medical Group Primary Care at [facility] [address] [place] [address] [address], [place] [phone] Fadumo Garay MD from Last 3 Months Immunizations Immunization Administration Dates Next Due Influenza, Unspecified 03/27/2023(Deferr [...] surery WRIST SURGERY 2000 Right wrist surgery LASIK 2021 Medical History Medical History Date Comments Hx [...] on file Legal Sex Male 12:23 PM POLICE SPECIALIST Gender Identity Not on file Sexual Orientation Not on file Obstetrics History Last Filed Vital Signs Vital Sign Reading Time Taken Comments Blood Pressure 130/70 02/01/2025 9:02 AM CDT Pulse 87 02/01/2025 9:02 AM CDT Temperature 36.5 C (97.7 F) 03/09/2024 3:47 PM CDT Respiratory Rate 16 02/01/2025 9:02 AM CDT Oxygen Saturation 97% 02/01/2025 9:02 AM CDT Inhaled Oxygen Concentration - - Weight 117.9 kg (260 lb) 02/01/2025 9:02 AM CDT Height 182.9 cm (6' 0.01) 02/01/2025 9:02 AM CD T Body Mass Index 35.25 02/01/2025 9:02 AM CDT Plan of Treatment Upcoming Encounters Date Type Department Care Team (Latest Contact Info) Description 06/21/2025 7:30 AM CDT Hospital Encounter [facility] Operating Room [address] [place] [phone] Huber Fraire MD [address] [address] 06/21/2025 7:30 AM CDT - 06/21/2025 8:45 AM CDT Surgery [facility] Operating Room [address] [place] [phone] Huber Fraire MD [address] [facility] [address] [place] [address] Septoplasty [89332 (CPT )] Scheduled Procedures Name Priority Associated Diagnoses Date/Ti me SEPTOPLASTY. Deviated nasal septum Hypertrophy of nasal turbinates 06/21/2025 7:30 AM CDT REDUCTION INFERIOR TURBINATE. Deviated nasal septum Hypertrophy of nasal turbinates 06/21/2025 7:30 AM CDT Health Maintenance Due Date Last Done Comments Meningococcal B Vaccine (1 of 4 - Increased Risk) 1981 Hepatitis B Screening 1989 Zoster Vaccine (1 of 2) 2021 Pneumococcal vaccine <65 (1 of 2 - PCV) 06/28/2025 Postponed from 1990 (Patient declined, but will receive in the [...] in accordance with current CDC screening recommendations. Reactive: Positive for HCV antibodies. This may represent current or past HCV infection. Supplemental molecular testing will be automatically performed to determine current infection status in accordance with current CDC screening recommendations. Interpretive data was last revised on 2019. Blood 03/09/2024 4:38 PM CDT 03/09/2024 7:06 PM CDT aJclyn Bucriaga [facility] MICROBIOLOGY - GENERAL ORD ERABLES Edited Result - Final [facility] [address] Department [place] [address] * PSA screen (03/02/2024 1:58 PM CDT) PSA-Total 0.82 <=3.90 ng/mL Comment: Interpretive Data AGE SEX REFERENCE INTERVAL 0 minutes-150 years Female None 0 minutes-49 years Male None 50-59 years Male 0-3.90 60-69 years Male 0-5.40 70-79 years Male 0-6.20 80-150 years Male 0-6.20 The Emelia PSA Total assay procedure was used. Results from different manufacturers or methods may not be comparable. Serial testing should be performed using the same method. Current interpretive data last revised 21. Blood 03/02/2024 1:58 PM CDT 03/02/2024 6:25 PM CDT Jaclyn Burciaga INFORMATION SYSTEMS SECURITY SPECIALIST LAB BLOOD ORDERABLES Final Res ult [facility] [address] Department [place] [address] * Colonoscopy (2018) Anatomical Region Laterality Modality Other us Historical Provider ENDOSCOPY PROCEDURES Holley l Result from Last 3 Months or Most Recently Relevant to Health Maintenance Insurance [employer] ACCESS CHOICE [employer] ACCESS CHOICE Advance Directives For more information, please contact: [phone] * Full Code (Latest Code Status on File) Date Activated Date Inactivated Comments 09/13/2018 1:24 AM 09/17/2018 6:05 PM Care Teams Weapons Officer [employer] Relationship Specialty Start Date End Date Fadumo Garay MD [address] [address] PCP - General 05/28/13
--- OUTSIDE RECORDS SUMMARY | 2025-06-07 12:05 | XMS_ITS | Encounter Summary ---
Author Organization [facility] Address [address] [place] [address] Care Team Providers Care Boom Tender Name Role Phone Fadumo Garay MD Primary Care Provider [phone] Encounter Details Date Type Department Care Team (Late st Contact Info) Description 06/27/2020 MyChart Message Enc [facility] Neuroscience [facility] [address], [place] [phone] Rio Yan MD 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
--- OUTSIDE RECORDS SUMMARY | 2025-06-07 12:05 | XMS_ITS | Clinical Summary ---
Author Organization [facility] Address [address] [place] [address] Care Team Providers Care Commercial Maintenance Technician Name Role Phone Fadumo Garay MD Primary Care Provider [phone] Allergies Active Allergy Reactions Criticality Noted Date [...] Active tadalafil 20 MG tabletIndicatio ns:Cervical myelopathy ([facility]/HCC [facility]/HCC) One tablet every three days prn 10 tablet 11 08/23/2021 Active Active Problems Problem Noted Date Diagnosed Date Erectile dysfunction due to diseases classified elsewhere 03/10/2020 Cervical myelopathy 01/21/2020 Family History Medical History Relation Comments [...] on file Legal Sex Male 2:29 PM [employer] Gender Identity Not on file Sexual Orientation Not on file Last Filed Vital Signs Vital Sign Reading Time Taken Comments Blood Pressure 124/86 08/23/2021 10:43 AM [employer] Pulse 85 08/23/2021 10:43 AM [employer] Temperature 36.3 C (97.4 F) 12/12/2020 2:24 PM CDT Respiratory Rate - - Oxygen Saturation 97% 08/23/2021 10: 43 AM [employer] Inhaled Oxygen Concentration - - Weight 114.9 kg (253 lb 6.4 oz) 10:43 AM [employer] Height 185.4 cm (6' 1) 08/23/2021 10:4 3 AM [employer] Body Mass Index 33.43 08/23/2021 10:43 AM [employer] Plan of Treatment Health Maintenance Due Date Last Done Comments Colorectal Cancer Screening Colonoscopy (10 Years) 1971 Annual Physical 1974 Hepatitis C 1989 Hepatitis B Vaccines (1 of 3 - 19+ 3-dose series) 1990 Pneumococcal Vaccine: 50+ Years (1 of 1 - PCV) 2021 Zoster Vaccines (1 of 2) 2021 COVID-19 Vaccine (1 - 2023-2 5 season) 2025 Influenza Adult (#1) 2025 DTaP, Tdap and Td Vaccines ( 2 - Td or Tdap) 06/20/2030 06/20/2020, 04/29/2010 Hepatitis A Vaccines Aged Out No long er eligible based on patient's age to complete this topic Meningococcal B Vaccine Aged Out No l onger eligible based on patient's age to complete this topic Meningococcal Vaccine Aged Out No noel randolph eligible based on patient's age to complete this topic RSV Immunizations Under 20 Months Aged Out No longer eligible b ased on patient's age to complete this topic Insurance [facility] Care Teams Commercial Maintenance Technician Relationship Specialty Start Date End Date Fadumo Garay MD [address] [place] [id number] PCP - General INTERNAL MEDICINE 10/15/19
--- OUTSIDE RECORDS SUMMARY | 2025-06-07 12:05 | XMS_ITS | Encounter Summary ---
Author Organization [facility] Address [address] [place] [address] Care Team Providers Care Glass Rolling Machine Operator Name Role Phone Fadumo Garay MD Primary Care Provider [phone] Encounter Details Date Type Department Care Team (Latest Contact Info) Description 07/05/2020 [employer] Message Enc [facility] [address] [address] Rio Yan MD 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
--- OUTSIDE RECORDS SUMMARY | 2025-06-07 12:05 | XMS_ITS | Encounter Summary ---
Author Organization [facility] Address 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
--- OUTSIDE RECORDS SUMMARY | 2025-06-07 12:05 | XMS_ITS | Encounter Summary ---
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 Gender Identity Not on file Sexual Orientation Not on file documented as of this encounter Plan of Treatment Upcoming Encounters Date Type Department Care Team (Latest Contact Info) Description 06/21/2025 7:30 AM CDT Hospital Encounter [facility] Operating Room [address] [place] [address] Huber Fraire MD [address] [address] 06/21/2025 7:30 AM CDT - 06/21/2025 8:45 AM CDT Surgery [facility] Operating Room [address] [place] [id number] Huber Fraire MD [address] [facility] [address], [place] [address] Septoplasty [95007 (CPT )] Scheduled Procedures Name Priority Associated Diagnoses Date/Ti me SEPTOPLASTY. Deviated nasal septum Hypertrophy of nasal turbinates 06/21/2025 7:30 AM CDT REDUCTION INFERIOR TURBINATE. Deviated nasal septum Hypertrophy of nasal turbinates 06/21/2025 7:30 AM CDT documented as of this encounter Goals Goal [...] on filedocumented in this encounter Care Teams Patternmaker Plastics Relationship Specialty Start Date End Date Fadumo Garay MD [address] [facility] [address], [place] [id number] PCP - General 05/28/13 documented as of this encounter
--- OUTSIDE RECORDS SUMMARY | 2025-06-07 12:05 | XMS_ITS | Clinical Summary ---
Author Organization [facility] [address] Address [address] [facility] [place] [address] Phone Care Team Providers Care Adult Care Manager Name Role Phone Fadumo Garay MD Primary Care Provider [phone] Allergies Active Allergy Reactions Criticality Noted Date Comments Erythromycin Unknown 05/17/2015 Medications mometasone (NASONEX) 50 mcg/actuation Revelo, Non-Aerosol Administer 1 Revelo in each nostril daily. 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 Gender Identity Not on file Sexual Orientation Not on file Last Filed Vital Signs Vital Sign Reading Time Taken Comments Blood Pressure 160/108 05/19/2019 11:05 AM CDT Pulse 76 05/19/2019 11:05 AM CDT Temperature - - Respiratory Rate - - Oxygen Saturation - - Inhaled Oxygen Concentration - - Weight 112 kg (247 lb) 05/19/2019 11:05 AM CDT Height 185.4 cm (6' 1) 05/19/2019 11:05 AM CDT Body Mass Index 32.59 05/19/2019 11:05 AM CDT Plan of Treatment Health Maintenance Due Date Last Done Comments HEPATITIS B VACCINES (1 of 3 - 19+ 3-dose series) 02/24 COLORECTAL SCREENING 2016 Colorectal Cancer Screening 2016 FIT-DNA Q 3 years 2016 FIT/FOBT Q 1 year 2016 Flex Sig/CT Colonography Q 5 years 2016 ZOSTER VACCINE (1 of 2) 2021 INFLUENZA VACCINE (#1) 2025 DTAP/TDAP/TD VACCINES (2 - Td or Tdap) 06/20/2030 Insurance BLUE ACCESS CHOICE Care Teams Adult Care Manager Relationship Specialty Start Date End Date Fadumo Garay MD [address] [facility] [address] [address] PCP - General Internal Medicine 05/19/19
--- OUTSIDE RECORDS SUMMARY | 2025-06-07 12:05 | XMS_ITS | Encounter Summary ---
Author Organization [facility] Address 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
--- OUTSIDE RECORDS SUMMARY | 2025-06-07 12:05 | XMS_ITS | Encounter Summary ---
Author Organization [facility] Healthcare Address [address] [place] [address] Care Team Providers Care Security Rep Name Role Phone Fadumo Garay MD Primary Care Provider Reason for Visit * Reason Onset Date Comments Chest Pain 06/07/2025 Encounter Details Date Type Department Care Team (Late st Contact Info) Description 06/07/2025 Nurse Triage [facility] Primary Care at [facility] [address] [facility] [address] [address] Fadumo Garay MD [address] [facility] [address], [place] [address] Social History Tobacco Use Types Packs/Day Years [...] on file 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 Patient did not state which medications they were and RN did not ask as patient's affect became aggravated when RN asked questions or for clarification of symptoms after he stated he already said that. I mean, were you not listening? I already said that, last week, it started last . Endorses chest pain (center), SOB and headaches. RN was able to ascertain that patient's chest pain has been constant since lastweek and he has had mild SOB and feels clammy right now. BP just prior to call: 178/95, HR 96 Advised patient to please call 911 right now, that anytime he has chest pain for more than 5 minutes, especially if accompanied by an SOB or feeling clammy, that this is a 911 call. Patient verbalized understanding and said, Okay. Routing FYI to office. Disposition Call EMS 911 Now Reason for Disposition Chest pain lasting longer than 5 minutes and over 44 years old Protocols Used Chest Gnow-Plqua-WG * Telephone Encounter - Marilyn Hinojosa RN - 06/07/2025 9:33 AM CDT Regarding: chest pains ----- Message from Bri Pearson sent at 06/07/2025 9:21 AM CDT ----- Symptom Based Call Chief Complaint(s): chest pains Duration: since last week What type of symptom(s) is the patient experiencing? Red Flag. Is the patient concerned they are experiencing a medical emergency requiring an ambulance? No Additional Comments: patient says he went on a short trip and forgot his blood pressure meds and his blood pressure has been all over the place since as well as chest pains. He made an appt through [facility] today but wanted to come in sooner. Does message need to be routed? Yes-Action Needed documented in this encounter Plan of Treatment Upcoming Encounters Date Type Department Care Team (Latest Contact Info) Description 06/21/2025 7:30 AM CDT Hospital Encounter [facility] Operating Room [facility] [place] [phone] Huber Fraire MD [address] [facility] [address], [place] [id number] 06/21/2025 7:30 AM CDT - 06/21/2025 8:45 AM CDT Surgery [facility] Operating Room [facility] [place] [address] Huber Fraire MD [address] [facility] [address], [place] [address] Septoplasty [69610 (CPT )] Scheduled Procedures Name Priority Associated [...] on filedocumented in this encounter Care Teams Security Rep Relationship Specialty Start Date End Date Fadumo Garay MD [address] [facility] [address] [place], [place] [id number] PCP - General 05/28/13 documented as of this encounter
--- OUTSIDE RECORDS SUMMARY | 2025-06-07 12:05 | XMS_ITS | Encounter Summary ---
Author Organization [facility] Address 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
--- NOTE | 2025-06-07 13:41 | ED.CHESTPAIN ---
HPI - Chest Pain General Chief Complaint: Chest Pain <SORAYA Woodard Last Filed: 06/07/25 14:14> Stated Complaint: chest pain, high bp, left shoulder pain 5 days <SORAYA Woodard Last Filed: 06/07/25 14:14> Time Seen by Provider: 06/07/25 13:49 <SORAYA Woodard Last Filed: 06/07/25 14:14> Focused HPI: Patient is a 55 y/o male who presents to the ED with c/o CP. Patient reports he has been having intermittent pain throughout his midsternal chest since of last week. States pain is worse with certain movements, deep breathing. Reports feeling mildly short of breath. He is fairly active and does workout often. He has history of a herniated disc in his neck with a previous pinched nerve, but states this does not feel similar. States today his blood pressure was elevated to 190s over 100s. He contacted his primary care doctor and was referred to the ED for further evaluation. Patient does have history of hypertension and is on multiple medications for this. States he did go on a vacation last week and forgot his medications. History of heart disease or blood clots. GENERAL: Well-appearing, obese with BMI of 33.2, and in no acute distress. HEAD: Normocephalic, atraumatic. CHEST: Clear to auscultation. ?No respiratory distress. HEART: Regular rate and rhythm.? MSK: Mild TTP over midsternal chest. NEURO: ?Alert and oriented x3. Patient screened in triage and initial orders placed.? ?Additional care and disposition to be based upon?diagnostic testing and treatment. <SORAYA Woodard Last Filed: 06/07/25 14:14> Source: patient <SORAYA Woodard Last Filed: 06/07/25 14:14> Mode of arrival: ambulatory <SORAYA Woodard Last Filed: 06/07/25 14:14> Limitations: no limitations <SORAYA Woodard Last Filed: 06/07/25 14:14> History of Present Illness HPI narrative: Agree the HPI. Had some increased pain today while reaching down to get a spoon at the sink. He ended up having to use pliers to retrieve it. He has also had some mild lightheadedness with some sinus congestion. Gets lightheaded with standing up on occasion. Occasional elevated blood pressures, in triage here blood pressures are not in severe range. He restarted his amlodipine last night after being without it. <Roc Cook MD - Last Filed: 06/07/25 16:10> Related Data Home Medications: Home Medications ?Medication ?Instructions ?Recorded ?Confirmed ?Last Taken ?Type hydrochlorothiazide 12.5 mg tablet 12.5 mg PO DAILY 12/18/21 09/25/24 04/23/24 History ibuprofen 200 mg capsule (Advil 200 mg PO Q6H PRN Pain 12/18/21 09/25/24 06/15/23 History Liqui-Gel) cetirizine 10 mg tablet (Zyrtec) 10 mg PO DAILY 03/28/22 09/25/24 04/23/24 History multivitamin with minerals (Men's 1 tablet PO DAILY 03/28/22 09/25/24 04/21/24 History One Daily tablet) ergocalciferol (vitamin D2) 1,250 50,000 mcg PO WEEKLY 07/11/23 09/25/24 04/19/24 History mcg (50,000 unit) capsule amlodipine 5 mg tablet 5 mg PO DAILY@1700 09/25/24 09/25/24 Unknown History lisinopril 20 mg tablet 20 mg PO DAILY 09/25/24 09/25/24 Unknown History <Lola Rubalcava PA-C - Last Filed: 06/07/25 14:14> Allergies/Adverse Reactions: Allergies Allergy/AdvReac Type Severity Reaction Status Date / Time No Known Allergies Allergy Verified 06/07/25 11:14 <Lola Rubalcava PA-C - Last Filed: 06/07/25 14:14> Review of Systems Review of Systems: All systems reviewed & are unremarkable except as noted in HPI and below <Roc Cook MD - Last Filed: 06/07/25 16:10> Constitutional: Constitutional: Reports no additional constitutional complaints <Roc Cook MD - Last Filed: 06/07/25 16:10> Cardiovascular: Cardiovascular: Reports no additional cardiovascular complaints <Roc Cook MD - Last Filed: 06/07/25 16:10> Respiratory: Respiratory: Reports no additional respiratory complaints <Roc Cook MD - Last Filed: 06/07/25 16:10> Gastrointestinal: Gastrointestinal: Reports no additional gastrointestinal complaints <Roc Cook MD - Last Filed: 06/07/25 16:10> Integumentary/Breasts: Skin/Breast: Reports system reviewed and no additional complaints, except as docu <Roc Cook MD - Last Filed: 06/07/25 16:10> PMFSH Past Medical History Medical History: Medical History (Updated 06/07/25 @ 16:06 by Roc Cook MD) CELY (obstructive sleep apnea) CPAP was recalled, no longer using Herniated disc, cervical C3-7 Hypertension Chondromalacia patellae of right knee Medial meniscus, posterior horn derangement <Lola Rubalcava PA-C - Last Filed: 06/07/25 14:14> Surgical History Surgical History: Surgical History (Updated 09/25/24 @ 22:33 by Dorys Walls PA-C) History of arthroscopy of left knee 1989 and March 2021 History of arthroscopy of right knee 07/16/2023 and 04/24/2024 <Lola Rubalcava PA-C - Last Filed: 06/07/25 14:14> Social History Social History: Social History (Updated 09/25/24 @ 22:34 by Dorys Walls PA-C) Social History: Surrogate medical decision maker: Mattie Hinojosa, father. Code status: Full code. Smoking packs per day: 0.25 Smoking cigarettes per day: 5.0 Years smoked: 6 Smoking pack-years: 1.50 Smoking status: Never smoker Tobacco type: cigarettes Second hand tobacco smoke exposure: Yes Smoking end date: 08/26/01 Alcohol intake: never Drinks per week: 1 Alcohol use details: Rare alcohol use in moderation and on special occasions. Substance use: never Substance use type: does not use Last use: 2006 Do You Feel Safe in your Home?: Yes Lack of Transportation: No Lack of Food: Never True Current Housing: I Have Housing Concerned About Future Housing: No Difficulty Paying Gas/Electric Bills: No Difficulty Paying for Meds: No Currently Unemployed: No Education: Bachelor's Degree Difficulty w/ Childcare or Family Care: No Living arrangements: alone Additional living arrangements comments: Lives in [place]. 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 Spiritual care concerns: No <Lola Rubalcava PA-C - Last Filed: 06/07/25 14:14> Exam Narrative: GENERAL: Well-appearing, well-nourished, and in no acute distress. HEAD: Normocephalic, atraumatic. EYES: PERRL and EOMI. ENT: Mucous membranes moist. TMs normal bilaterally. Ear canals free of cerumen impaction. CHEST: Clear to auscultation. No respiratory distress. HEART: Regular rate and rhythm. Normal peripheral pulses. ABDOMEN: Soft, nontender, nondistended. EXTREMITIES: Normal range of motion. No edema. SKIN: Warm, dry, no rash. NEURO: Alert and oriented x3. PSYCH: Normal mood and affect. <Roc Cook MD - Last Filed: 06/07/25 16:10> Course Course Emergency Course: Patient given reassurance. May have some mild vertigo with lightheadedness as it is not related with persistently severe blood pressures. EKG normal. Troponin negative x2. Negative D-dimer. X-ray reassuring. Appropriate for discharge home. Recommend increasing his amlodipine to 10 mg daily. Will provide a new prescription. Recommend follow-up with PCP. <Roc Cook MD - Last Filed: 06/07/25 16:10> Vital Signs Vital signs: Vital Signs Temperature 98.7 F 06/07/25 11:05 Pulse Rate 102 H 06/07/25 11:05 Respiratory Rate 16 06/07/25 11:05 Blood Pressure 145/85 H 06/07/25 11:05 Pulse Oximetry 97 06/07/25 11:05 Oxygen Delivery Room Air 06/07/25 11:05 Temperature 98.7 F 06/07/25 11:05 Pulse Rate 88 06/07/25 14:02 Respiratory Rate 19 06/07/25 14:02 Blood Pressure 151/95 H 06/07/25 14:02 Pulse Oximetry 99 06/07/25 14:02 Oxygen Delivery Room Air 06/07/25 11:05 <Lola Rubalcava PA-C - Last Filed: 06/07/25 14:14> Vital Signs Temperature 98.7 F 06/07/25 11:05 Pulse Rate 102 H 06/07/25 11:05 Respiratory Rate 16 06/07/25 11:05 Blood Pressure 145/85 H 06/07/25 11:05 Pulse Oximetry 97 06/07/25 11:05 Oxygen Delivery Room Air 06/07/25 11:05 Temperature 98.7 F 06/07/25 11:05 Pulse Rate 88 06/07/25 14:02 Respiratory Rate 19 06/07/25 14:02 Blood Pressure 151/95 H 06/07/25 14:02 Pulse Oximetry 99 06/07/25 14:02 Oxygen Delivery Room Air 06/07/25 11:05 <Roc Cook MD - Last Filed: 06/07/25 16:10> MDM - Chest Pain MDM Narrative Medical decision making narrative: MSE by SANTHOSH in triage. <Lola Rubalcava PA-C - Last Filed: 06/07/25 14:14> Lab Data Result diagrams: 06/07/25 11:21 06/07/25 11:21 <Lola Rubalcava PA-C - Last Filed: 06/07/25 14:14> Labs: Lab Results 06/07/25 06/07/25 Range/Units 11:21 14:07 WBC 8.2 (4.5-10.0) K/mm3 RBC 6.05 (4.6-6.20) M/mm3 Hgb 17.4 (14.0-18.0) g/dL Hct 49.7 (42.0-52.0) % MCV 82.1 (80-100) fl MCH 28.8 (26-34) pg MCHC 35.0 (32-36) g/dl RDW 12.7 (11.5-14.5) % Plt Count 278 (150-375) k/mm3 MPV 9.9 (7.4-10.4) fl Immature Gran % (Auto) 0.4 (0-0.5) % Neut % (Auto) 60.5 (45.5-73.1) % Lymph % (Auto) 27.0 (18.3-44.2) % [place] % (Auto) 10.6 H (2.6-8.5) % Eos % (Auto) 0.9 (0-4.4) % Baso % (Auto) 0.6 (0.2-1.2) % Lymph # (Auto) 2.22 (0.9-3.2) K/mm3 [place] # (Auto) 0.9 H (0.1-0.6) K/mm3 Eos # (Auto) 0.1 (0-0.3) K/mm3 Baso # (Auto) 0.1 (0.0-0.1) K/mm3 Abs Immat Gran (auto) 0.03 (0.00-0.031) K/mm3 Absolute Neuts (auto) 5.0 (1.3-6.7) K/mm3 Absolute Nucleated RBC 0.000 (0.0-0.012) K/mm3 Nucleated RBC % 0.0 (0.0-0.2) % PT 13.3 (11.1-14.7) Seconds INR 1.0 APTT 29.1 (22.3-36.8) Seconds D-Dimer < 0.27 (<0.48) ug/mL Sodium 133 L (137-145) mmol/L Potassium 3.7 (3.4-5.0) mmol/L Chloride 99 (98-107) mmol/L Carbon Dioxide 23 (22-30) mmol/L Anion Gap 11 (4-12) mmol/L BUN 11 (9-20) mg/dL Creatinine 0.86 (0.7-1.3) mg/dL Estim Creat Clear Calc 114 ml/min Estimated GFR > 60 (59 - ) Glucose 107 (65-110) mg/dL Calcium 8.9 (8.4-10.2) mg/dL Total Bilirubin 0.9 (0.2-1.3) mg/dL AST 34 (17-59) U/L ALT 29 (6-50) U/L Alkaline Phosphatase 48 (38-126) U/L Troponin I < 0.012 < 0.012 (0.000-0.034) ng/mL Total Protein 8.1 (6.3-8.2) g/dL Albumin 4.7 (3.5-5.1) g/dL Lipase 118 (23-300) U/L <Lola Rubalcava PA-C - Last Filed: 06/07/25 14:14> Lab Results 06/07/25 06/07/25 Range/Units 11:21 14:07 WBC 8.2 (4.5-10.0) K/mm3 RBC 6.05 (4.6-6.20) M/mm3 Hgb 17.4 (14.0-18.0) g/dL Hct 49.7 (42.0-52.0) % MCV 82.1 (80-100) fl MCH 28.8 (26-34) pg MCHC 35.0 (32-36) g/dl RDW 12.7 (11.5-14.5) % Plt Count 278 (150-375) k/mm3 MPV 9.9 (7.4-10.4) fl Immature Gran % (Auto) 0.4 (0-0.5) % Neut % (Auto) 60.5 (45.5-73.1) % Lymph % (Auto) 27.0 (18.3-44.2) % [place] % (Auto) 10.6 H (2.6-8.5) % Eos % (Auto) 0.9 (0-4.4) % Baso % (Auto) 0.6 (0.2-1.2) % Lymph # (Auto) 2.22 (0.9-3.2) K/mm3 [place] # (Auto) 0.9 H (0.1-0.6) K/mm3 Eos # (Auto) 0.1 (0-0.3) K/mm3 Baso # (Auto) 0.1 (0.0-0.1) K/mm3 Abs Immat Gran (auto) 0.03 (0.00-0.031) K/mm3 Absolute Neuts (auto) 5.0 (1.3-6.7) K/mm3 Absolute Nucleated RBC 0.000 (0.0-0.012) K/mm3 Nucleated RBC % 0.0 (0.0-0.2) % PT 13.3 (11.1-14.7) Seconds INR 1.0 APTT 29.1 (22.3-36.8) Seconds D-Dimer < 0.27 (<0.48) ug/mL Sodium 133 L (137-145) mmol/L Potassium 3.7 (3.4-5.0) mmol/L Chloride 99 (98-107) mmol/L Carbon Dioxide 23 (22-30) mmol/L Anion Gap 11 (4-12) mmol/L BUN 11 (9-20) mg/dL Creatinine 0.86 (0.7-1.3) mg/dL Estim Creat Clear Calc 114 ml/min Estimated GFR > 60 (59 - ) Glucose 107 (65-110) mg/dL Calcium 8.9 (8.4-10.2) mg/dL Total Bilirubin 0.9 (0.2-1.3) mg/dL AST 34 (17-59) U/L ALT 29 (6-50) U/L Alkaline Phosphatase 48 (38-126) U/L Troponin I < 0.012 < 0.012 (0.000-0.034) ng/mL Total Protein 8.1 (6.3-8.2) g/dL Albumin 4.7 (3.5-5.1) g/dL Lipase 118 (23-300) U/L <Roc Cook MD - Last Filed: 06/07/25 16:10> Imaging Data Radiologist's impression: ITS Impressions Chest X-Ray 06/07/25 12:19 IMPRESSION: 1. No acute cardiopulmonary findings. <Roc Cook MD - Last Filed: 06/07/25 16:10> ECG Data EKG #1: ECG completion date: 06/07/25 <Roc Cook MD - Last Filed: 06/07/25 16:10> ECG completion time: 14:03 <Roc Cook MD - Last Filed: 06/07/25 16:10> EKG Interpretation: normal rate (89), sinus rhythm, non-specific ST changes, no ST changes, normal QRS and normal QT <Roc Cook MD - Last Filed: 06/07/25 16:10> Discharge Plan Discharge Clinical Impression: Hypertension, Costochondritis, Vertigo <Lola Rubalcava PA-C - Last Filed: 06/07/25 14:14> Patient Disposition: Home <Lola Rubalcava PA-C - Last Filed: 06/07/25 14:14> Condition: Stable <Lola Rubalcava PA-C - Last Filed: 06/07/25 14:14> Instructions: Costochondritis (ED), Vertigo (ED), Hypertension (ED) <SORAYA Woodard Last Filed: 06/07/25 14:14> Additional Instructions: Please return to the emergency department if you develop severe and persistent chest pain, difficulty breathing, dizziness, leg swelling or if you are coughing up blood as these can be signs of a medical emergency. Please call your doctor for a follow up appointment to determine the need for further testing. <Lola Rubalcava PA-C - Last Filed: 06/07/25 14:14> Patient Language: Iraqi <Lola Rubalcava PA-C - Last Filed: 06/07/25 14:14> Prescriptions: New amlodipine 10 mg tablet 10 mg PO DAILY Qty: 10 0RF naproxen 375 mg tablet 375 mg PO BID Qty: 14 0RF meclizine 25 mg tablet 25 mg PO TID PRN (Reason: dizziness) Qty: 20 0RF No Action hydrochlorothiazide 12.5 mg tablet 12.5 mg PO DAILY ibuprofen [Advil Liqui-Gel] 200 mg capsule 200 mg PO Q6H PRN (Reason: Pain) cetirizine [Zyrtec] 10 mg Tablet 10 mg PO DAILY Men's One Daily Tablet 1 tablet PO DAILY lisinopril 20 mg tablet 20 mg PO DAILY amlodipine 5 mg tablet 5 mg PO DAILY@1700 metronidazole 500 mg tablet 500 mg PO Q8H 10 Days Qty: 30 0RF sulfamethoxazole-trimethoprim 800-160 mg tablet 1 tablet PO Q12H 10 Days Qty: 20 0RF ergocalciferol (vitamin D2) 1,250 mcg (50,000 unit) capsule 50,000 mcg PO WEEKLY Rx Instructions: TAKES ON SATURDAY <SORAYA Woodard Last Filed: 06/07/25 14:14> Follow-up/Referrals: CARLYN,MANUELITO Ro M.D. [Primary Care Provider, Unknown] - 1 Week <Lola Rubalcava PA-C - Last Filed: 06/07/25 14:14> Quality HEART score for chest pain patients History: slightly suspicious <Roc Cook MD - Last Filed: 06/07/25 16:10> ECG: normal <Roc Cook MD - Last Filed: 06/07/25 16:10> Age: > 45 and < 65 years <Roc Cook MD - Last Filed: 06/07/25 16:10> Risk factors: 1 or 2 risk factors <Roc Cook MD - Last Filed: 06/07/25 16:10> Troponin: < or = to 1x normal limit <Roc Cook MD - Last Filed: 06/07/25 16:10> Heart score: 2 <Roc Cook MD - Last Filed: 06/07/25 16:10>
--- NOTE | 2025-06-07 14:00 | ECG_ITS ---
Test Date: 2025-06-07 14:03:14 Measurements Intervals [place] Rate: 89 P: 25 ND: 134 QRS: 38 QRSD: 96 T: 32 QT: 325 QTc: 397 Interpretive Statements SINUS RHYTHM BASELINE ARTIFACT- I, III NORMAL ECG Compared to ECG 06/07/2025 10:58:24 HEART RATE HAS DECREASED Electronically Signed On 06-07-2025 15:43:59 CDT by Seun Langley D.O.
[2025-06-07 14:02] VITALS: BP 151/95; PULSE 88; RESP 19; O2SAT 99
[2025-06-07 14:45] LABS: Troponin I < 0.012 ng/mL (0.000-0.034)
[2025-06-07 16:15] VITALS: BP 164/101; PULSE 88; RESP 18; O2SAT 98
[2025-06-07 16:16] VITALS: PULSE 84; O2SAT 97
--- OUTSIDE RECORDS SUMMARY | 2025-06-07 16:19 | XMS_ITS | Encounter Summary ---
Author Organization [employer] Address 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
--- OUTSIDE RECORDS SUMMARY | 2025-06-07 16:19 | XMS_ITS | Clinical Summary ---
Author Organization [facility] [address] Address [address] [place] [address] Phone Care Team Providers Care Inspector Balance Wheel Motion Name Role Phone Fadumo Garay MD Primary Care Provider [phone] Allergies Active Allergy Reactions Criticality Noted Date Comments Erythromycin Unknown 05/17/2015 Medications mometasone (NASONEX) 50 mcg/actuation [place], Non-Aerosol Administer 1 [place] in each nostril daily. 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
--- OUTSIDE RECORDS SUMMARY | 2025-06-07 16:19 | XMS_ITS | Encounter Summary ---
Author Organization [facility] Healthcare Address [address] [place] [address] Care Team Providers Care Upkeep Mechanic Name Role Phone Fadumo Garay MD Primary Care Provider Reason for Visit * Reason Onset Date Comments Chest Pain 06/07/2025 Encounter Details Date Type Department Care Team (Late st Contact Info) Description 06/07/2025 Nurse Triage [facility] Medical [facility] Primary Care at [facility] [address] 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 He made an appt through [facility] today but wanted to come in sooner. Does message need to be routed? Yes-Action Needed documented in this encounter Plan of Treatment Upcoming Encounters Date Type Department Care Team (Latest Contact Info) Description 06/21/2025 7:30 AM CDT Hospital Encounter [facility] Operating Room [address] [place] [phone] Huber Fraire MD [address] [id number] 06/21/2025 7:30 AM CDT - 06/21/2025 8:45 AM CDT Surgery [facility] Operating Room [address] [place] [phone] Huber Fraire MD [address] [address] Septoplasty [31007 (CPT )] Scheduled Procedures Name Priority Associated [...] on filedocumented in this encounter Care Teams Upkeep Mechanic Relationship Specialty Start Date End Date Fadumo Garay MD [address] [address] PCP - General 05/28/13 documented as of this encounter
--- OUTSIDE RECORDS SUMMARY | 2025-06-07 16:19 | XMS_ITS | Encounter Summary ---
Author Organization [facility] Address [address] [place] [address] Care Team Providers Care Latin Teacher Name Role Phone Fadumo Garay MD Primary Care Provider [phone] Encounter Details Date Type Department Care Team (Latest Contact Info) Description 07/05/2020 Synqerat Message Enc [facility] [address] [address] Rio Yan MD 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
--- OUTSIDE RECORDS SUMMARY | 2025-06-07 16:19 | XMS_ITS | Encounter Summary ---
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 Gender Identity Not on file Sexual Orientation Not on file documented as of this encounter Plan of Treatment Upcoming Encounters Date Type Department Care Team (Latest Contact Info) Description 06/21/2025 7:30 AM CDT Hospital Encounter [facility] Operating Room [address] [place] [address] Huber Fraire MD [address] [address] 06/21/2025 7:30 AM CDT - 06/21/2025 8:45 AM CDT Surgery [facility] Operating Room [address] [place] [phone] Huber Fraire MD [address] [facility] [address], [place] [address] Septoplasty [88965 (CPT )] Scheduled Procedures Name Priority Associated [...] on filedocumented in this encounter Care Teams Supervisor [employer] Relationship Specialty Start Date End Date Fadumo Garay MD [address] [facility] [address], [place] [id number] PCP - General 05/28/13 documented as of this encounter
--- OUTSIDE RECORDS SUMMARY | 2025-06-07 16:19 | XMS_ITS | Clinical Summary ---
Author Organization [facility] Address [address] [place] [address] Care Team Providers Care Back Panel Padder Name Role Phone Fadumo Garay MD Primary Care Provider [phone] Allergies Active Allergy Reactions Criticality Noted Date [...] Active tadalafil 20 MG tabletIndicatio ns:Cervical myelopathy ([facility]/HCC [facility]/HCC) One tablet every three days prn 10 [...] on file Legal Sex Male 2:29 PM PROGRAMMER ENGINEERING AND SCIENTIFIC Gender Identity Not on file Sexual Orientation Not on file Last Filed Vital Signs Vital Sign Reading Time Taken Comments Blood Pressure 124/86 08/23/2021 10:43 AM PROGRAMMER ENGINEERING AND SCIENTIFIC Pulse 85 08/23/2021 10:43 AM PROGRAMMER ENGINEERING AND SCIENTIFIC Temperature 36.3 C (97.4 F) 12/12/2020 2:24 PM CDT Respiratory Rate - - Oxygen Saturation 97% 08/23/2021 10: 43 AM PROGRAMMER ENGINEERING AND SCIENTIFIC Inhaled Oxygen Concentration - - Weight 114.9 kg (253 lb 6.4 oz) 10:43 AM PROGRAMMER ENGINEERING AND SCIENTIFIC Height 185.4 cm (6' 1) 08/23/2021 10:4 3 AM PROGRAMMER ENGINEERING AND SCIENTIFIC Body Mass Index 33.43 08/23/2021 10:43 AM PROGRAMMER ENGINEERING AND SCIENTIFIC Plan of Treatment Health Maintenance Due Date [...] patient's age to complete this topic Insurance [facility] Care Teams Back Panel Padder Relationship Specialty Start Date End Date Fadumo Garay MD [address] [place] [phone] PCP - General INTERNAL MEDICINE 10/15/19
--- OUTSIDE RECORDS SUMMARY | 2025-06-07 16:19 | XMS_ITS | Encounter Summary ---
Author Organization [employer] Address 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
--- OUTSIDE RECORDS SUMMARY | 2025-06-07 16:19 | XMS_ITS | Encounter Summary ---
Author Organization [facility] Address [address] [place] [id number] Care Team Providers Care Community Pharmacist Name Role Phone Fadumo Garay MD Primary Care Provider [phone] Encounter Details Date Type Department Care Team (Late st Contact Info) Description 06/27/2020 MyChart Message Enc [facility] Neuroscience [facility] [address] [phone] Rio Yan MD 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
--- OUTSIDE RECORDS SUMMARY | 2025-06-07 16:19 | XMS_ITS | Encounter Summary ---
Author Organization [employer] Address 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
--- OUTSIDE RECORDS SUMMARY | 2025-06-07 16:19 | XMS_ITS | Clinical Summary ---
Author Organization [facility] Address [address] [place] [address] Care Team Providers Care Brick Stacker Name Role Phone Fadumo Garay MD Primary [...] filter Assessment & Plan (07/01/2017 1:48 PM WRECKING CRANE ENGINE OPERATOR): Continue use of CPAP machine as previously [...] medications Assessment & Plan (09/17/2018 11:23 AM WRECKING CRANE ENGINE OPERATOR): Patient has BL hypertension with BP as [...] - Medicine will sign off; please call [phone] with questions Assessment & Plan (09/16/2018 3:23 PM WRECKING CRANE ENGINE OPERATOR): Patient has BL hypertension with BP as [...] Medicine will continue to follow; please call [phone] with questions Atopic rhinitis 10/12/2013 Overview (11/29/2016): [...] 11/06/19 Assessment & Plan (08/06/2019 5:33 PM WRECKING CRANE ENGINE OPERATOR): Patient with ongoing shortness of breath after being seen at the urgent care center approximately 5 days ago. He has been using his albuterol inhaler every 4-6 hours with limited relief. Improvement after albuterol nebulized treatment given in right lung aeration. Left lung full breath sounds throughout prior to albuterol treatment I've referred him to [facility] pulmonology at this time for concerns [...] CDT): Patient declined eval in ER at [facility]- discussed risks of fracture and trauma- he verbalized understainding. Acute midline thoracic back pain 02/25/2018 11/19/2018 Assessment & Plan (02/25/2018 4:59 PM CDT): Concern for fracture.- xray BMI 33.0-33.9,adult 03/25/2017 10/12/19 20 Assessment & Plan (08/06/2019 5:30 PM WRECKING CRANE ENGINE OPERATOR): BMI Follow-up includes: education provided. Assessment & Plan (07/01/2017 1:48 PM WRECKING CRANE ENGINE OPERATOR): BMI Follow-up includes:Try to work on diet, [...] Department Care Team Description 06/07/2025 Nurse Triage [facility] Primary Care at [place] [id number] [phone] Fadumo Garay MD 05/31/2025 Telephone [facility] Pre Anesthesia Testing [address] [place] [phone] Lynda Hudson 05/24/2025 Telephone [facility] [address] [place] [phone] Huber Fraire MD 04/05/2025 Telephone [facility] Primary Care at [address] [phone] Fadumo Garay MD 04/05/2025 Telephone [facility] Primary Care at [facility] [address] [place] [address] [address] [phone] Fadumo Garay MD from Last 3 Months [...] on file Legal Sex Male 12:23 PM WRECKING CRANE ENGINE OPERATOR Gender Identity Not on file Sexual [...] Description 06/21/2025 7:30 AM CDT Hospital Encounter [facility] Operating Room [address] [place] [phone] Huber Fraire MD [address] [address] 06/21/2025 7:30 AM CDT - 06/21/2025 8:45 AM CDT Surgery [facility] Operating Room [address] [place] [phone] Huber Fraire MD [address] [facility] [address] [place] [address] Septoplasty [15167 (CPT )] Scheduled Procedures Name Priority Associated [...] 4:38 PM CDT 03/09/2024 7:06 PM CDT Jaclyn Burciaga [facility] MICROBIOLOGY - GENERAL ORD ERABLES Edited Result - Final [facility] [address] Department [place] [address] * PSA screen (03/02/2024 1:58 [...] CDT 03/02/2024 6:25 PM CDT Jaclyn Burciaga UTILITY WORKER FILM PROCESSING LAB BLOOD ORDERABLES Final Res ult [facility] [address] Department [place] [address] * Colonoscopy (2018) Anatomical Region Laterality Modality Other us Historical Provider ENDOSCOPY PROCEDURES Holley l Result from Last 3 Months or Most Recently Relevant to Health Maintenance Insurance Eyelation ACCESS CHOICE Eyelation ACCESS CHOICE Advance Directives For more information, please contact: [phone] * Full Code (Latest Code Status on File) Date Activated Date Inactivated Comments 09/13/2018 1:24 AM 09/17/2018 6:05 PM Care Teams Brick Stacker Relationship Specialty Start Date End Date Fadumo Garay MD [address] [address] PCP - General 05/28/13
[2025-06-07 16:24] VITALS: BP 146/97; PULSE 88; RESP 18; O2SAT 96
== END 2025-06-07 16:25 | disposition home or self-care (01) ==
LOC: ANHED 16:07
PROVIDERS: Student in an Organized Health Care Education/Training Program; Emergency Provider Emergency Medicine; PCP Internal Medicine
DX: M94.0 Chondrocostal junction syndrome [Tietze] (principal); R42 Dizziness and giddiness; I10 Essential (primary) hypertension; E66.9 Obesity, unspecified; Z68.33 Body mass index [BMI] 33.0-33.9, adult; G47.33 Obstructive sleep apnea (adult) (pediatric); Z87.891 Personal history of nicotine dependence; Z79.899 Other long term (current) drug therapy; R00.0 Tachycardia, unspecified; R94.31 Abnormal electrocardiogram [ECG] [EKG]
CPT/HCPCS: 36415; 71046; 80053; 83690; 84484; 85025; 85380; 85610; 85730; 93005; 99284